=== PATIENT | female | born 1955 | race Caucasian/White ===

== ENCOUNTER 2017-04-25 14:59 | Emergency (ER) | payer BC ==
[2017-04-25] MEDS ORDERED: Diltiazem 25 MG/5 ML SDV IVPUSH ONE ×2 (15:09→15:45)
--- NOTE | 2017-04-25 15:12 | EDM.PDOC ---
ED HPI GENERAL MEDICAL PROBLEM - General Chief Complaint: Chest Pain Stated Complaint: CP Time Seen by Provider: 04/25/17 15:07 Source of Information: Reports: Patient History Limitations: Reports: No Limitations - History of Present Illness INITIAL COMMENTS - FREE TEXT/NARRATIVE: Patient notes that she had left chest tightness starting around 0330 last night. Squeezing sensation, no pain. Increased heart rate. Denies SOB except for when she was at work lifting things. Better with rest. No sweating. No nausea/emesis. ROS otherwise negative. No history of heart problems or similar episodes in past. No new meds/energy drinks/supplements. 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 Chest Pain Score (Numeric/FACES): 1 - Related Data Allergies Allergy/AdvReac Type Severity Reaction Status Date / Time No Known Allergies Allergy Verified 04/25/17 15:03 Home Meds: Home Meds Aspirin [Lo-Dose Aspirin EC] 81 mg PO 199904/25/17 [History] Levothyroxine [Levothyroxine] 125 mcg PO DAILY 04/25/17 [History] Past Medical History Cardiovascular History: Reports: Hypertension Endocrine/Metabolic History: Reports: Hypothyroidism Social & Family History - Family History Cardiac: Reports: CAD, Heart Failure, Hypertension, [place] - Tobacco Use Smoking Status *Q: Never Smoker - Caffeine Use Caffeine Use: Reports: Soda - Alcohol Use Alcohol Use History: No Days Per Week of Alcohol Use: 0 ED ROS GENERAL - Review of Systems Review Of Systems: See Below Constitutional: Reports: No Symptoms HEENT: Reports: Glasses Respiratory: Reports: Shortness of Breath. Denies: Wheezing, Pleuritic Chest Pain, Cough, Sputum, Hemoptysis Cardiovascular: Reports: Chest Pain, Dyspnea on Exertion, Palpitations. Denies : Edema, Lightheadedness, Orthopnea, PND, Syncope Endocrine: Reports: No Symptoms GI/Abdominal: Reports: No Symptoms : Reports: No Symptoms Musculoskeletal: Reports: No Symptoms Skin: Reports: No Symptoms Neurological: Reports: No Symptoms Psychiatric: Reports: No Symptoms Hematologic/Lymphatic: Reports: No Symptoms Immunologic: Reports: No Symptoms ED EXAM, GENERAL - Physical Exam Exam: See Below Exam Limited By: No Limitations General Appearance: Alert, WD/WN, No Apparent Distress Eye Exam: Bilateral Eye: EOMI, Normal Inspection, PERRL Ears: Normal External Exam Nose: Normal Inspection Throat/Mouth: Normal Inspection, Normal Lips, Normal Oropharynx, Normal Voice, No Airway Compromise Head: Atraumatic, Normocephalic Neck: Normal Inspection, Supple, Non-Tender, Full Range of Motion Respiratory/Chest: No Respiratory Distress, Lungs Clear, Normal Breath Sounds, No Accessory Muscle Use, Chest Non-Tender Cardiovascular: Tachycardia, Irregularly Irregular Peripheral Pulses: 2+: Radial (L), Radial (R), Dorsalis Pedis (L), Dorsalis Pedis (R) GI/Abdominal: Normal Bowel Sounds, Soft, Non-Tender, No Distention (Female) Exam: Deferred Rectal (Female) Exam: Deferred Back Exam: Normal Inspection, Full Range of Motion. No: CVA Tenderness (L), CVA Tenderness (R) Extremities: Normal Inspection, Normal Range of Motion, Non-Tender, No Pedal Edema, Normal Capillary Refill Neurological: Alert, Oriented, Normal Cognition, Normal Gait, Normal Reflexes, No Motor/Sensory Deficits Psychiatric: Normal Affect, Normal Mood Skin Exam: Warm, Dry, Intact, Normal Color EKG INTERPRETATION EKG Date: 04/25/17 Time: 15:29 Rhythm: Other (tachycardia, appears consistent with Aflutter) Rate (Beats/Min): 108 [place]: Normal P-Wave: Present QRS: Normal ST-T: Normal QT: Normal Comparison: NA - No Prior EKG Course - Vital Signs Last Recorded V/S: Last Vital Signs Temp 36.8 C 04/25/17 14:59 Pulse 69 04/25/17 18:08 Resp 18 04/25/17 17:54 BP 141/74 H 04/25/17 18:08 Pulse Ox 98 04/25/17 17:54 - Orders/Labs/Meds Orders: Active Orders 24 hr Category Date Time Status EKG Documentation Completion [RC] ASDIRECTED Care 04/25/17 15:08 Active EKG Documentation Completion [RC] ASDIRECTED Care 04/25/17 17:44 Active Chest 1V Frontal [CR] Stat Exams 04/25/17 15:09 Taken PE Chest [Ang Chest] [CT] Stat Exams 04/25/17 16:40 Taken Saline Lock Insert [OM.PC] Stat Oth 04/25/17 15:08 Ordered Labs: Laboratory Tests 04/25/17 04/25/17 04/25/17 Range/Units 15:08 15:08 15:08 WBC 7.7 (4.0-10.2) K/uL RBC 4.90 (3.77-5.09) M/uL Hgb 15.0 (11.7-15.5) g/dL Hct 44.7 (34.0-46.0) % MCV 91.2 (84.0-98.0) fL MCH 30.6 (28.2-33.3) pg MCHC 33.6 (31.7-36.0) g/dL RDW 13.9 (11.2-14.1) % Plt Count 307 (150-350) K/uL Neut % (Auto) 62.0 (45.0-80.0) % Lymph % (Auto) 25.7 (10.0-50.0) % [place] % (Auto) 9.8 (2.0-14.0) % Eos % (Auto) 2.0 (0.0-5.0) % Baso % (Auto) 0.5 (0.0-2.0) % Neut # (Auto) 4.77 (1.40-7.00) K/uL Lymph # (Auto) 1.98 (0.50-3.50) K/uL [place] # (Auto) 0.75 (0.00-1.00) K/uL Eos # (Auto) 0.15 (0.00-0.50) K/uL Baso # (Auto) 0.04 (0.00-0.20) K/uL PT 10.7 (9.8-11.7) SEC INR 1.0 D-Dimer, Quantitative 821 H (0-400) ng/mL Sodium (136-145) mmol/L Potassium (3.5-5.1) mmol/L Chloride (98-107) mmol/L Carbon Dioxide (21.0-32.0) mmol/L BUN (7-18) mg/dL Creatinine (0.51-1.17) mg/dL Est Cr Clr Drug Dosing mL/min Estimated GFR (MDRD) mL/min Glucose (74-106) mg/dL Calcium (8.5-10.1) mg/dL Total Bilirubin (0.2-1.0) mg/dL AST (15-37) U/L ALT (12-78) U/L Alkaline Phosphatase (46-116) IU/L Creatine Kinase (26-308) U/L Creatine Kinase Index (0.0-2.5) % CK-MB (CK-2) (0.00-3.60) ng/mL Troponin I (0.000-0.056) ng/mL NT-Pro-B Natriuret Pep (0-125) pg/mL Total Protein (6.4-8.2) g/dL Albumin (3.4-5.0) g/dL TSH, Ultra Sensitive (0.358-3.740) mIU/mL Specimen Type Urine Color Urine Appearance Urine pH (5.0-9.0) Ur Specific [place] (1.005-1.030) Urine Protein (NEGATIVE) mg/dL Urine Glucose (UA) (NEGATIVE) mg/dL Urine Ketones (NEGATIVE) mg/dL Urine Occult Blood (NEGATIVE) Urine Nitrite (NEGATIVE) Urine Bilirubin (NEGATIVE) Urine Urobilinogen (0.2-1.0) E.U./dL Ur Leukocyte Esterase (NEGATIVE) Urine RBC /HPF Urine WBC /HPF Ur Epithelial Cells /LPF Amorphous Sediment (0/HPF) /HPF Urine Bacteria (NONE TO FEW) /HPF 04/25/17 04/25/17 Range/Units 15:08 18:13 WBC (4.0-10.2) K/uL RBC (3.77-5.09) M/uL Hgb (11.7-15.5) g/dL Hct (34.0-46.0) % MCV (84.0-98.0) fL MCH (28.2-33.3) pg MCHC (31.7-36.0) g/dL RDW (11.2-14.1) % Plt Count (150-350) K/uL Neut % (Auto) (45.0-80.0) % Lymph % (Auto) (10.0-50.0) % [place] % (Auto) (2.0-14.0) % Eos % (Auto) (0.0-5.0) % Baso % (Auto) (0.0-2.0) % Neut # (Auto) (1.40-7.00) K/uL Lymph # (Auto) (0.50-3.50) K/uL [place] # (Auto) (0.00-1.00) K/uL Eos # (Auto) (0.00-0.50) K/uL Baso # (Auto) (0.00-0.20) K/uL PT (9.8-11.7) SEC INR D-Dimer, Quantitative (0-400) ng/mL Sodium 143 (136-145) mmol/L Potassium 3.9 (3.5-5.1) mmol/L Chloride 106 (98-107) mmol/L Carbon Dioxide 27.3 (21.0-32.0) mmol/L BUN 16 (7-18) mg/dL Creatinine 0.91 (0.51-1.17) mg/dL Est Cr Clr Drug Dosing 51.35 mL/min Estimated GFR (MDRD) > 60 mL/min Glucose 113 H (74-106) mg/dL Calcium 9.3 (8.5-10.1) mg/dL Total Bilirubin 0.2 (0.2-1.0) mg/dL AST 15 (15-37) U/L ALT 23 (12-78) U/L Alkaline Phosphatase 55 (46-116) IU/L Creatine Kinase 102 (26-308) U/L Creatine Kinase Index 1.2 (0.0-2.5) % CK-MB (CK-2) 1.20 (0.00-3.60) ng/mL Troponin I 0.006 (0.000-0.056) ng/mL NT-Pro-B Natriuret Pep 2130 H (0-125) pg/mL Total Protein 8.2 (6.4-8.2) g/dL Albumin 3.6 (3.4-5.0) g/dL TSH, Ultra Sensitive 0.007 L (0.358-3.740) mIU/mL Specimen Type Urincc Urine Color Yellow Urine Appearance Clear Urine pH 7.0 (5.0-9.0) Ur Specific [place] 1.015 (1.005-1.030) Urine Protein Negative (NEGATIVE) mg/dL Urine Glucose (UA) Negative (NEGATIVE) mg/dL Urine Ketones Negative (NEGATIVE) mg/dL Urine Occult Blood Trace-intact H (NEGATIVE) Urine Nitrite Negative (NEGATIVE) Urine Bilirubin Negative (NEGATIVE) Urine Urobilinogen 0.2 (0.2-1.0) E.U./dL Ur Leukocyte Esterase Negative (NEGATIVE) Urine RBC 0-5 /HPF Urine WBC 0-5 /HPF Ur Epithelial Cells Few /LPF Amorphous Sediment Moderate H (0/HPF) /HPF Urine Bacteria Few (NONE TO FEW) /HPF Meds: Medications Discontinued Medications Generic Name Dose Route Start Last Admin Trade Name Freq PRN Reason Stop Dose Admin Diltiazem HCl 20 mg 04/25/17 15:09 04/25/17 15:22 Diltiazem IVPUSH 04/25/17 15:10 20 mg ONETIME ONE Administration Diltiazem HCl 25 mg 04/25/17 15:45 04/25/17 15:56 Diltiazem IVPUSH 04/25/17 15:46 25 mg ONETIME ONE Administration Diltiazem HCl 120 mg 04/25/17 17:56 04/25/17 18:08 Cardizem Cd PO 04/25/17 17:57 120 mg ONETIME ONE Administration Diltiazem HCl 100 mg/ Sodium 100 mls @ 5 mls/hr 04/25/17 16:45 Chloride IV TITRATE CAROLYNE Protocol 5 MG/HR Iopamidol 100 ml 04/25/17 16:45 04/25/17 17:01 Isovue-370 (76%) IVPUSH 04/25/17 16:46 100 ml ONETIME ONE Administration Sodium Chloride 10 ml 04/25/17 15:08 04/25/17 15:57 Saline Flush FLUSH 10 ml ASDIRECTED PRN Administration Keep Vein Open - Radiology Interpretation Free Text/Narrative:: CT of chest negative for PE. Small nodules noted left lower lung, uncertain significance per Radiology. It is recommended that this be followed up with later scan to make certain these have resolved. No acute changes noted on earlier chest xray. - Re-Assessments/Exams Free Text/Narrative Re-Assessment/Exam: Patient given several doses of IV Cardizem. No appreciable rate change with first dose. Second dose ordered. Labs showed elevated DDimer as well as ProBNP. TSH very low. Discussed DDimer with patient. She was willing to undergo CT to rule out PE. Second dose of Cardizem improved rate, however change was short lived. Cardizem drip considered while patient underwent CT. When dye was injected, patient suddenly felt rate change and complaint of chest discomfort/palpitations/SOB resolved. Monitor showed NSR. New EKG performed at 1721. Normal sinus rhythm with rate of 63 noted. Normal EKG. She was observed for some time and remained asymptomatic and comfortable. Vital signs stable. Single oral dose of Cardizem CD given prior to discharge. CT nodules discussed with patient. She is to follow up tomorrow with Vera at clinic for recheck as well as to discuss lowering her thyroid dose. Nodule follow up plan is also to be formulated. Cannot rule out possible contribution of thyroid medication to today's presentation. She is to hold her morning thyroid dose tomorrow. Departure - Departure Time of Disposition: 18:07 Disposition: Home, Self-Care 01 Condition: Good Clinical Impression: Atrial flutter with rapid ventricular response Instructions: Paroxysmal Supraventricular Tachycardia, [id number], Atrial Flutter Referrals: PCP,Unknown [Primary Care Provider] - Forms: ED Department Discharge Additional Instructions: Follow up in the ER if symptoms redevelop. Call your clinic tomorrow morning and arrange a follow up with Vera. Do not take your thyroid medication in the morning. Discuss possible thyroid dose changes as well as if cardiac stress testing needs to be scheduled. Arrange for further follow up as needed. - My Orders Last 24 Hours: My Active Orders 04/25/17 15:08 EKG Documentation Completion [RC] ASDIRECTED Saline Lock Insert [OM.PC] Stat 04/25/17 15:09 Chest 1V Frontal [CR] Stat 04/25/17 16:40 PE Chest [Ang Chest] [CT] Stat 04/25/17 17:44 EKG Documentation Completion [RC] ASDIRECTED - Assessment/Plan Last 24 Hours: My Active Orders 04/25/17 15:08 EKG Documentation Completion [RC] ASDIRECTED Saline Lock Insert [OM.PC] Stat 04/25/17 15:09 Chest 1V Frontal [CR] Stat 04/25/17 16:40 PE Chest [Ang Chest] [CT] Stat 04/25/17 17:44 EKG Documentation Completion [RC] ASDIRECTED
[2017-04-25] MEDS: Sodium Chloride 0.9% 10 ML Syringe FLUSH PRN ×2 (15:23→15:57)
[2017-04-25 15:42] LABS: CHLORIDE,CL 106 mmol/L (98-107); SODIUM,NA 143 mmol/L (136-145)
[2017-04-25] MEDS ORDERED: Iopamidol 755 Mg/ML 100 ML Bottle IVPUSH ONE (16:45)
[2017-04-25] MEDS ORDERED: Diltiazem 100 MG in Sodium Chloride 0.9% 100 ML IV SCH (16:45)
[2017-04-25] MEDS ORDERED: Diltiazem 120 MG Cap.CD PO ONE (17:56)
== END 2017-04-25 18:30 | disposition home or self-care (01) ==
LOC: LL.ED 14:59
DX: I48.92 Unspecified atrial flutter (principal); I10 Essential (primary) hypertension; E03.9 Hypothyroidism, unspecified; Z79.82 Long term (current) use of aspirin; Z79.899 Other long term (current) drug therapy
CPT/HCPCS: 36415; 71010; 71275; 80053; 81001; 82550; 82553; 83880; 84443; 84484; 85025; 85379; 85610; 93005; 96374; 96376; 99285; A9270; J3490; J7050; Q9967

== ENCOUNTER 2020-01-08 10:23 | Day surgery (SDC) | payer BC ==
[~2020-01-08 10:23] MED LIST: Lactated Ringers 1,000 ML IV SCH; Midazolam 1 MG/ML 2 ML SDV ONE; Propofol 200 MG/20 ML SDV ONE; Sodium Chloride 0.9% 10 ML Syringe FLUSH PRN
--- NOTE | 2020-01-08 12:10 | PCM.PN ---
- General Info Date of Service: 01/08/20 - Review of Systems Systems Review Comment:: 65-year-old female referred for her first colonoscopy. This patient was recently noted to have positive Cologuard test. She denies any recent change in bowel habits. She denies any family history of colon cancer. She is medically stable to proceed today. Her recent history and physical is reviewed and no significant changes are noted. I have discussed the proposed colonoscopy with the patient. Risks such as but not limited to bleeding and GI injury reviewed. She agrees to proceed. - Patient Data Vitals - Most Recent: Last Vital Signs Temp 98.9 F 01/08/20 11:13 Pulse 56 L 01/08/20 11:13 Resp 20 01/08/20 11:13 BP 129/71 01/08/20 11:13 Pulse Ox 97 01/08/20 11:13 Weight - Most Recent: 92.079 kg Med Orders - Current: Current Medications Lactated Ringer's (Ringers, Lactated) 1,000 mls @ 125 mls/hr IV ASDIRECTED CAROLYNE Last Admin: 01/08/20 11:12 Dose: 125 mls/hr Documented by: Sodium Chloride (Saline Flush) 10 ml FLUSH ASDIRECTED PRN PRN Reason: Keep Vein Open Discontinued Medications Midazolam HCl (Versed 1 Mg/Ml) Confirm Administered Dose 2 mg .ROUTE .STK-MED ONE Stop: 01/08/20 08:29 Propofol (Diprivan 20 Ml) Confirm Administered Dose 400 mg .ROUTE .STK-MED ONE Stop: 01/08/20 08:29 Sepsis Event Note - Focused Exam Vital Signs: Vital Signs Temp Pulse Resp BP Pulse Ox 01/08/20 11:13 98.9 F 56 L 20 129/71 97 Date Exam was Performed: 01/08/20 Time Exam was Performed: 12:09 - Problem List Review Problem List Initiated/Reviewed/Updated: Yes - Assessment Assessment:: Positive Cologuard - Plan Plan:: Colonoscopy
[2020-01-08] MEDS ORDERED: Midazolam 1 MG/ML 2 ML SDV ONE (12:15)
[2020-01-08] MEDS ORDERED: Propofol 200 MG/20 ML SDV ONE (12:15)
--- NOTE | 2020-01-08 12:59 | PCM.OPNOTE ---
- General Post-Op/Procedure Note Date of Surgery/Procedure: 01/08/20 Operative Procedure(s): Colonoscopy with polypectomy Findings: 1.5 cm pedunculated polyp in the sigmoid colon Mild to moderate sigmoid diverticulosis Pre Op Diagnosis: Positive Cologuard test Post-Op Diagnosis: Colon polyp. Sigmoid diverticulosis Anesthesia Technique: MAC Primary Surgeon: Vince Luna Pathology: Sigmoid colon polyp EBL in mLs: 0 Complications: None Condition: Good
--- NOTE | 2020-01-08 18:45 | OR ---
Date of Procedure: 01/08/2020 PREOPERATIVE DIAGNOSIS: Positive Cologuard test. POSTOPERATIVE DIAGNOSIS: Sigmoid colon polyp and sigmoid diverticulosis. OPERATIONS PERFORMED: Colonoscopy with polypectomy. INDICATIONS FOR SURGERY: This 65-year-old female is here for her initial colonoscopy. She was recently noted to be Cologuard positive. FINDINGS: In the sigmoid colon 20 cm from the anal verge, there is a relatively large pedunculated polyp of approximately 1.5 cm in size. No other polyps are seen during the exam. The patient also has a [id number] degree of uncomplicated sigmoid diverticulosis. DESCRIPTION OF PROCEDURE: The patient was taken to the operating room. She was given intravenous sedation, and with her in the left lateral decubitus position, digital rectal exam was performed showing no rectal masses. The Olympus colonoscope was inserted into the rectum. Retroflexed examination of the rectal canal was performed. The scope was advanced to the sigmoid region where the above-described polyp was identified. This was removed with a cautery snare and retrieved. The polyp then was retrieved by holding it on the end of the scope with suction and withdrawing it from the rectum. The scope was then reinserted and carefully advanced under direct visualization through the entire length of the colon until the cecum was reached. Cecal acquisition was confirmed by noting the normal internal cecal anatomy including the appendiceal orifice and ileocecal valve. The light was also noted to transilluminate the abdominal wall in the right lower quadrant. After examining the cecum, the scope was slowly withdrawn sequentially re-examining the colonic segments until the entire colon and rectum had been fully examined. The scope was removed and the patient was taken from the operating room in satisfactory condition. ESTIMATED BLOOD LOSS: 0. COMPLICATIONS: None. PROGNOSIS: Good. ABDIRAHMAN Luna MD /[id number]
== END 2020-01-08 13:56 | disposition home or self-care (01) ==
LOC: LL.SDS 10:23
PROVIDERS: ATTEND Surgery
DX: K57.30 Diverticulosis of large intestine without perforation or abscess without bleeding (principal); I10 Essential (primary) hypertension; E78.5 Hyperlipidemia, unspecified; E03.9 Hypothyroidism, unspecified; Z79.890 Hormone replacement therapy; Z79.899 Other long term (current) drug therapy; Z79.82 Long term (current) use of aspirin
CPT/HCPCS: J2250; J2704; J7120

== ENCOUNTER 2020-09-14 03:05 | Observation (INO) | payer BC ==
[2020-09-14] MEDS ORDERED: Enoxaparin 100 MG/1 ML Syringe ONE (03:40)
[2020-09-14] MEDS ORDERED: Ticagrelor 90 MG Tab PO ONE (03:40)
[2020-09-14] MEDS ORDERED: Metoprolol Tartrate 25 MG Tab ONE (03:40)
[2020-09-14] MEDS ORDERED: Acetaminophen 325 MG Tab PO PRN (04:30)
[2020-09-14] MEDS ORDERED: Enoxaparin 100 MG/1 ML Syringe SUBCUT SCH (04:45)
[2020-09-14 08:17] LABS: PTT,PARTIAL THROMBOPLSTIN TIME 26.4 SEC (24.5-32.8)
[2020-09-14 08:19] LABS: CHLORIDE,CL 105 mmol/L (98-107); SODIUM,NA 141 mmol/L (136-145)
[2020-09-14] MEDS ORDERED: Famotidine 20 MG/2 ML SDV IVPUSH ONE (08:46)
--- NOTE | 2020-09-14 09:32 | EDM.PDOC ---
ED HPI GENERAL MEDICAL PROBLEM - General Chief Complaint: Cardiovascular Problem Stated Complaint: Heart flutter, chest pain Time Seen by Provider: 09/14/20 03:35 Source of Information: Reports: Patient, Old Records ([facility] chart/EMR) History Limitations: Reports: No Limitations - History of Present Illness INITIAL COMMENTS - FREE TEXT/NARRATIVE: The patient drove herself to the emergency room via private automobile secondary to a sudden onset episode of heart racing, dyspnea, dizziness, and mild nausea with the symptoms waking her up from sleep at about 2:15 AM this morning. The patient does have a history of previous recurrent atrial fibrillation initially in April 2017 with no anticoagulation therapy or cardiac work-up to this point. She also complained of left lateral lower 6/10 chest pressure, which she describes as a "catch," with no radiation of this chest discomfort. The patient denies any orthostasis, orthopnea, diaphoresis, paresthesias, recent decreased exercise tolerance, or any other anginal-type symptoms, although her overall exercise tolerance and activity is relatively low as a baseline. No recent history of abdominal pain, emesis, diarrhea, melena, gross hematochezia, or any food intolerance, including fatty foods, etc., although she has been having some frequent heartburn type symptoms during the last several weeks with no medications to this point. She denies any gross hematuria, colic, or other UTI symptoms. The patient also denies any recent fever, cough, wheezing, dyspnea, etc.. She has not taken any medications for her symptoms to this point, including her morning medications. She also denies any medication noncompliance. Onset: Today, Sudden Onset Date: 09/14/20 Onset Time: 02:15 Duration: Constant Location: Reports: Chest, Abdomen (Possible epigastric component). Denies: Head, Face, Neck, Back, Pelvis, Upper Extremity, Left, Upper Extremity, Right, Radiates to Quality: Reports: Pressure, Same as Previous Episode Severity: Moderate Improves with: Reports: None Worsens with: Reports: None Context: Reports: Other (As above). Denies: Sick Contact, Trauma Associated Symptoms: Reports: Chest Pain, Nausea/Vomiting (No emesis), Shortness of Breath. Denies: Confusion, Cough, Diaphoresis, Fever/Chills, Headaches, Loss of Appetite, Malaise, Seizure, Syncope, Weakness Treatments HAND SCRAPER: Reports: Other (see below) (None) Left Lower Chest Pain Score (Numeric/FACES): 6 - Related Data Allergies Allergy/AdvReac Type Severity Reaction Status Date / Time No Known Allergies Allergy Verified 09/14/20 09:21 Home Meds: Home Meds Aspirin [Halfprin] 1 tab PO DAILY 01/08/20 [History] Levothyroxine Sodium [Synthroid] 137 mcg PO DAILY 09/14/20 [History] Metoprolol Tartrate 25 mg PO DAILY 09/14/20 [History] Past Medical History HEENT History: Reports: Impaired Vision. Denies: Allergic Rhinitis, Cataract, Glaucoma, Hard of Hearing, Macular Degeneration, Otitis Media, Retinal Detachment Other HEENT History: The patient wears glasses. Cardiovascular History: Reports: Afib, Heart Failure, High Cholesterol, Hypertension, Other (See Below). Denies: Aneurysm, Arrhythmia, Blood Clots/VTE/DVT, CAD, Heart Murmur, MO, PVD, Syncope Other Cardiovascular History: Mild hyperlipidemia with no current medical therapy. Recurrent atrial fibrillation/flutter since 04/25/2017 with additional episode on 04/25/2018 with evaluations in this facility on those occasions. History of D-dimer elevation in April 2017 with negative CTA of the chest as below. History of borderline intermittent CHF likely secondary to atrial fibrillation with rapid ventricular response. Respiratory History: Reports: COPD, Pulmonary Fibrosis, Other (See Below). Denies: Asthma, Bronchitis, Recurrent, Intubation, Difficult, Intubation, Previous, PE, Pneumonia, Recurrent, Pneumothorax, Sleep Apnea, TB Other Respiratory History: Borderline COPD and pulmonary fibrosis per chest x- ray with no current medical therapy. Gastrointestinal History: Reports: Colon Polyp, Diverticulosis, GERD, Other (See Below). Denies: Bowel Obstruction, Celiac Disease, Cholelithiasis, Chronic Constipation, Chronic Diarrhea, Fecal Incontinence, Gastritis, GI Bleed, Helicobacter Pylori, Hiatal Hernia, Inflammatory Bowel Disease, Irritable Bowel Syndrome, Jaundice, Pancreatitis, PUD Other Gastrointestinal History: Tubular adenoma removed from the sigmoid colon on 01/08/2020 with mild sigmoid diverticulosis noted at that time. Dysphagia secondary to C-spine fixation. Genitourinary History: Reports: None. Denies: Acute Renal Failure, Chronic Renal Insuffiency, Pyelonephritis, Renal Calculus, Retention, Urinary, STD, Urinary Incontinence, UTI, Recurrent CONCRETE ANALYST History: Reports: None (General). Denies: Dysfunctional Uterine Bleeding, Endometriosis, Fibroids, , Spontaneous : 0 Para: 0 LMP (Approximate): Other (See Below) Other CONCRETE ANALYST History: Menopause at about age 56. Musculoskeletal History: Reports: Arthritis, Back Pain, Chronic, Fracture, Neck Pain, Chronic, Osteoarthritis, Other (See Below). Denies: Amputation, Gout, Osteoporosis, RA, SLE Other Musculoskeletal History: History of right-sided C6-C7 disc herniation versus questionable possible cervical fracture secondary to a fall in 2006 with subsequent spinal fusion as above. 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 Minimal scoliosis. Neurological History: Reports: None. Denies: Cerebral Aneurysms, Concussion, CVA, Headaches, Chronic, Head Trauma, Migraines, MS, Neuropathy, Diabetic, Neuropathy, Peripheral, Parkinson's, Seizure, TIA Psychiatric History: Reports: None. Denies: Abuse, Victim of, ADD, ADHD, Addiction, Alzheimers Disease, Anxiety, Dementia, Depression, Psych Hospitalization(s), PTSD, Suicide Attempt, Suicidal Ideation Endocrine/Metabolic History: Reports: Hypothyroidism, Multinodular Thyroid, Obesity/BMI 30+, Other (See Below). 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 Hematologic History: Reports: Blood Transfusion(s), Other (See Below). Denies: Anemia Other Hematologic History: Blood transfusions for orthopedic surgeries. Immunologic History: Reports: None. Denies: AIDS, HIV, SLE Oncologic (Cancer) History: Reports: None. Denies: Basal Cell Carcinoma, Breast, Cervix, Colon, Hodgkin's Lymphoma, Leukemia, Lymphoma, Malignant Melanoma, Non-Hodgkin's Lymphoma, Ovarian, Squamous Cell Carcinoma, Uterine Dermatologic History: Reports: None. Denies: Eczema, Psoriasis - Infectious Disease History Infectious Disease History: Reports: Chicken Pox, Measles, Mumps. Denies: C- Difficile, Meningitis, Mononucleosis, MRSA, Novel Coronavirus, Pertussis (Whooping Cough), Rheumatic Fever, Rubella, Scarlet Fever, Shingles, TB, VRE - Past Surgical History Head Surgeries/Procedures: Reports: None HEENT Surgical History: Reports: Oral Surgery, Other (See Below). Denies: Adenoidectomy, Cataract Surgery, Eye Surgery, Laser Surgery, LASIK, Myringotomy w Tube(s), Naso-Sinus Surgery, Tonsillectomy Other HEENT Surgeries/Procedures: [place] teeth extraction x4. Cardiovascular Surgical History: Reports: None. Denies: Varicose Respiratory Surgical History: Reports: None. Denies: Thoracentesis GI Surgical History: Reports: Colonoscopy, Polypectomy, Other (See Below). Denies: Appendectomy, Cholecystectomy, EGD, Hernia, Abdominal, Hernia, Inguinal, Hernia Repair/Other Other GI Surgeries/Procedures: Colonoscopy on 01/08/2020 with excision of tubular adenoma from the sigmoid region at that time as above. Female Surgical History: Reports: None. Denies: Breast Biopsy, Section, D&C, Salpingo-Oophorectomy, Tubal Ligation Endocrine Surgical History: Reports: Thyroid Biopsy, Thyroidectomy, Other (See Below) Other Endocrine Surgeries/Procedures: Left sided partial thyroidectomy secondary to multinodular goiter initially in about 2012 with subsequent repeat additional partial thyroidectomy in about 2013. Neurological Surgical History: Reports: C-Spine, Discectomy, Laminectomy, Spinal Fusion, Other (See Below). Denies: Lumbar Spine, Sacral Spine, Scoliosis, Thor acic Spine, Vertebroplasty Other Neurological Surgeries/Procedures: C6-7 laminectomy secondary to right- sided herniation with additional C4-C7 spinal fixation in 2006. Musculoskeletal Surgical History: Reports: Hip Replacement, Joint Replacement, Other (See Below). 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 Oncologic Surgical History: Reports: None. Denies: Biopsy of Breast Dermatological Surgical History: Reports: None. Denies: Plastic Surgical Reconstruction/Repair, Skin Biopsy - Past Imaging History Past Imaging History: Reports: Cardiac Echo (Normal echocardiogram on 06/01/2020 with ejection fraction of 55-60% with previous echocardiograms on 05/20/2018 and 05/07/2017.), CAT Scan (Negative CTA of the chest on 04/25/[address] of the neck on 01/15/2008.), Mammogram (Last on 06/21/2020), MRI (MRI of the C- spine on 06/19/2006.), Stress Testing (Negative Cardiolite stress test on 05/03/2017 with ejection fraction of 74%.), Ultrasound (Thyroid ultrasound on 01/06/2008, 05/23/2018, and 04/27/2017.), Venous Doppler (Negative venous Doppler studies of the right leg on 08/18/2013.) Social & Family History - Family History HEENT: Reports: None. Denies: Glaucoma, Macular Degeneration, Retinal De tachment Cardiac: Reports: Afib, CAD, Heart Failure, High Cholesterol, Hypertension, MO, Pacemaker, Other (See Below). Denies: Aneurysm, Arrhythmia, Blood Clots/VTE/DVT, PVD/COD, Syncope Other Cardiac Family History: Mother with MO in her 50s. Father with fatal MO in his 70s prior to planned pacemaker placement for unknown reason. Maternal grandfather and 4 maternal uncles with fatal MIs in their 60s to 70s. First cousin with atrial fibrillation. Mother with hypertension and hyperlipidemia. Respiratory: Reports: Asthma, Other (See Below). Denies: COPD, PE, Pneumothorax, Sleep Apnea Other Respiratory Family Hisory: Paternal grandmother with asthma. A sister with sleep apnea. GI: Reports: Cholelithiasis, Other (See Below). Denies: Celiac Disease, Colon Polyps, GERD, GI bleed, Inflammatory Bowel Disease, Irritable Bowel Syndrome, PUD Other GI Family History: Mother and sister with cholelithiasis. : Reports: None. Denies: Renal Calculus, Renal Disease/Insufficiency OBGYN: Reports: Dysfunctional uterine bleeding, Fibroids, Other (See Below). Denies: Endometriosis, Recurrent Spontaneous Other OBGYN Family History: Sister with fibroids and secondary dysfunctional uterine bleeding. Musculoskeletal: Reports: Arthritis, RA, Other (See Below). Denies: Gout, Osteoarthritis, Osteoporosis Other Musculoskeletal Family History: Father, sister, and paternal grandfather with rheumatoid arthritis. Neurological: Reports: None. Denies: Alzheimers Disease, Cerebral Aneurysms, CVA, Dementia, Migraines, MS, Parkinson's, Seizure, TIA Psychiatric: Reports: Anxiety, Depression, Other (See Below). Denies: Abuse, Victim of, ADD, Psych Hospitalization(s), Psychosis, PTSD, Suicide Attempt Other Psychiatric Family History: Sister with anxiety depression disorder. Endocrine/Metabolic: Reports: Hypothyroidism, Other (See Below). Denies: Diabetes, Gestational, Diabetes, Type I, Diabetes, type II, Diabetes Mellitus, Type 3c, IDDM Other Endocrine/Metabolic Family History: Father with hypothyroidism. Hematologic: Reports: None. Denies: Anemia, SLE Immunologic: Reports: None. Denies: AIDS, HIV, SLE Dermatologic: Reports: None. Denies: Eczema, Psoriasis Oncologic: Reports: Skin, Other (See Below) Other Oncologic Family History: Maternal aunt with unknown type of cancer. Mother with unknown type of skin cancer. - Tobacco Use Tobacco Use Status *Q: Never Tobacco User Tobacco Use Within Last Twelve Months: No Used Tobacco, but Quit: No Smoking Cessation Information Provided To Patient: No Second Hand Smoke Exposure: No Second Hand Smoke Education Provided: No - Caffeine Use Caffeine Use: Reports: Soda (2 sodas per week). Denies: Coffee, Energy Drinks, Tea - Alcohol Use Alcohol Use History: No Days Per Week of Alcohol Use: 0 Number of Drinks Per Day: 0 Number of Drinks Per Day Comment: No previous DWIs, problems with alcohol abuse, etc. Total Drinks Per Week: 0 Alcohol Use in Last Twelve Months: No - Recreational Drug Use Recreational Drug Use: No Drug Use in Last 12 Months: No Recreational Drug Type: Denies: Amphetamines (Speed), Cocaine, Heroin, Inhalants (Glues, Solvents, Aerosols), LSD (Acid), Marijuana/Hashish, Methamphetamine, Morphine, Oxycodone - Living Situation & Occupation Living situation: Reports: (2010, no children), Alone Occupation: Employed ([employer]) ED ROS GENERAL - Review of Systems Review Of Systems: Comprehensive ROS is negative, except as noted in HPI. ED EXAM, GENERAL - Physical Exam Exam: See Below Exam Limited By: No Limitations General Appearance: Alert, WD/WN, No Apparent Distress Eye Exam: Bilateral Eye: EOMI, Normal Inspection (The patient is wearing glasses. No vertigo or nystagmus.), PERRL Ears: Normal External Exam, Normal Canal, Hearing Grossly Normal, Normal TMs Nose: Normal Inspection, Normal Mucosa, No Blood Throat/Mouth: Normal Inspection, Normal Lips, Normal Teeth, Normal Gums, Normal Oropharynx, Normal Voice, No Airway Compromise, Dysphagia (As below), Other (Stable chronic problems of swallowing pills). No: Inflammation, Perioral Cyanosis Head: Atraumatic, Normocephalic. No: Facial Swelling, Facial Tenderness, Sinus Tenderness Neck: Normal Inspection, Supple, Non-Tender, Full Range of Motion. No: Carotid Bruit, Lymphadenopathy (L), Lymphadenopathy (R), Thyromegaly Respiratory/Chest: No Respiratory Distress, No Accessory Muscle Use, Chest Non- Tender, Rales (Mild bilateral basilar). No: Rhonchi, Wheezing, Pleural Rub, Retractions Cardiovascular: Normal Peripheral Pulses, No Edema (Dependent edema as below), No JVD, No Murmur, Tachycardia, Irregularly Irregular. No: Gallop/S3, Gallop/S4, Friction Rub Peripheral Pulses: 2+: Radial (L), Radial (R), Dorsalis Pedis (L), Dorsalis Pedis (R) GI/Abdominal: Normal Bowel Sounds, Soft, Non-Tender, No Organomegaly, No Distention, No Abnormal Bruit, No Mass, Other (Obese). No: Guarding (Female) Exam: Deferred Rectal (Female) Exam: Deferred Back Exam: Full Range of Motion, CVA Tenderness (L), CVA Tenderness (R), Decreased Range of Motion (Cervical region secondary to previous C-spine fixation). No: Muscle Spasm, Paraspinal Tenderness, Vertebral Tenderness Extremities: Normal Range of Motion, Non-Tender, Normal Capillary Refill, Pedal Edema (Trace bilateral pedal/pretibial edema). No: Prudence's Sign Neurological: Alert, Oriented, CN II-XII Intact, Normal Cognition, Normal Gait, Normal Reflexes (Negative Babinski's), No Motor/Sensory Deficits Psychiatric: Normal Affect, Normal Mood Skin Exam: No: Diaphoretic, Wound/Incision Lymphatic: No Adenopathy (Wants no good) #1 Interpretation EKG Date: 09/14/20 Time: 03:24 Rhythm: NSR Rate (Beats/Min): 71 [place]: Normal (Left cardiac axid=s) P-Wave: Present QRS: Normal (0.08 seconds) ST-T: Normal QT: Normal [place]/PQ Interval: 0.19 seconds with pulmonary hypertension by EKG, which is changed from previous mild poor R wave progression in the anterior leads. Also no previous mild sinus bradycardia. Comparison: Change From Previous EKG (As above since 05/20/2018.) EKG Interpretation Comments: 1. No acute ischemic changes with resolution of atrial fibrillation Course - Vital Signs Last Recorded V/S: Last Vital Signs Temp 36.6 C 09/14/20 11:20 Pulse 54 L 09/14/20 11:20 Resp 20 09/14/20 11:20 BP 146/61 H 09/14/20 11:20 Pulse Ox 98 09/14/20 11:20 - Orders/Labs/Meds Labs: Laboratory Tests 09/14/20 09/14/20 09/14/20 Range/Units 03:30 03:30 03:30 WBC 5.9 (4.0-10.2) K/uL RBC 4.93 (3.77-5.09) M/uL Hgb 15.1 (11.7-15.5) g/dL Hct 45.0 (34.0-46.0) % MCV 91.3 (84.0-98.0) fL MCH 30.6 (28.2-33.3) pg MCHC 33.6 (31.7-36.0) g/dL RDW 13.6 (11.2-14.1) % Plt Count 253 (150-350) K/uL Neut % (Auto) 58.7 (45.0-80.0) % Lymph % (Auto) 25.9 (10.0-50.0) % [place] % (Auto) 11.7 (2.0-14.0) % Eos % (Auto) 3.4 (0.0-5.0) % Baso % (Auto) 0.3 (0.0-2.0) % Neut # (Auto) 3.46 (1.40-7.00) K/uL Lymph # (Auto) 1.53 (0.50-3.50) K/uL [place] # (Auto) 0.69 (0.00-1.00) K/uL Eos # (Auto) 0.20 (0.00-0.50) K/uL Baso # (Auto) 0.02 (0.00-0.20) K/uL PT 9.6 (9.5-12.0) SEC INR 1.0 APTT 26.4 (24.5-32.8) SEC D-Dimer, Quantitative 530 H (0-400) ng/mL Sodium (136-145) mmol/L Potassium (3.5-5.1) mmol/L Chloride (98-107) mmol/L Carbon Dioxide (21.0-32.0) mmol/L BUN (7-18) mg/dL Creatinine (0.51-1.17) mg/dL Est Cr Clr Drug Dosing Estimated GFR (MDRD) mL/min Glucose (70-99) mg/dL Lactic Acid (0.4-2.0) mmol/L Calcium (8.5-10.1) mg/dL Magnesium (1.8-2.4) mg/dL Total Bilirubin (0.2-1.0) mg/dL AST (15-37) U/L ALT (12-78) U/L Alkaline Phosphatase (46-116) IU/L Creatine Kinase (26-308) U/L Creatine Kinase Index (0.0-2.5) % CK-MB (CK-2) (0.00-3.60) ng/mL Troponin I (0.000-0.056) ng/mL NT-Pro-B Natriuret Pep (0-125) pg/mL Total Protein (6.4-8.2) g/dL Albumin (3.4-5.0) g/dL 09/14/20 09/14/20 Range/Units 03:30 03:30 WBC (4.0-10.2) K/uL RBC (3.77-5.09) M/uL Hgb (11.7-15.5) g/dL Hct (34.0-46.0) % MCV (84.0-98.0) fL MCH (28.2-33.3) pg MCHC (31.7-36.0) g/dL RDW (11.2-14.1) % Plt Count (150-350) K/uL Neut % (Auto) (45.0-80.0) % Lymph % (Auto) (10.0-50.0) % [place] % (Auto) (2.0-14.0) % Eos % (Auto) (0.0-5.0) % Baso % (Auto) (0.0-2.0) % Neut # (Auto) (1.40-7.00) K/uL Lymph # (Auto) (0.50-3.50) K/uL [place] # (Auto) (0.00-1.00) K/uL Eos # (Auto) (0.00-0.50) K/uL Baso # (Auto) (0.00-0.20) K/uL PT (9.5-12.0) SEC INR APTT (24.5-32.8) SEC D-Dimer, Quantitative (0-400) ng/mL Sodium 141 (136-145) mmol/L Potassium 3.9 (3.5-5.1) mmol/L Chloride 105 (98-107) mmol/L Carbon Dioxide 26.6 (21.0-32.0) mmol/L BUN 17 (7-18) mg/dL Creatinine 0.98 (0.51-1.17) mg/dL Est Cr Clr Drug Dosing TNP Estimated GFR (MDRD) 57 mL/min Glucose 130 H (70-99) mg/dL Lactic Acid 1.5 (0.4-2.0) mmol/L Calcium 8.9 (8.5-10.1) mg/dL Magnesium 1.9 (1.8-2.4) mg/dL Total Bilirubin 0.3 (0.2-1.0) mg/dL AST 18 (15-37) U/L ALT 30 (12-78) U/L Alkaline Phosphatase 49 (46-116) IU/L Creatine Kinase 79 (26-308) U/L Creatine Kinase Index 1.0 (0.0-2.5) % CK-MB (CK-2) 0.80 (0.00-3.60) ng/mL Troponin I 0.000 (0.000-0.056) ng/mL NT-Pro-B Natriuret Pep 140 H (0-125) pg/mL Total Protein 7.8 (6.4-8.2) g/dL Albumin 3.7 (3.4-5.0) g/dL Meds: See paper forms - Radiology Interpretation Free Text/Narrative:: dip painter showed initial atrial fibrillation/flutter with initial heart rate in the 150s with subsequent spontaneous resolution and heart rate in the 70s. Normal sinus rhythm with no other ectopy noted thereafter. Chest x-ray, portable, showed borderline cardiomegaly with possible mild pulmonary obstructive disease and borderline pulmonary fibrosis. Mild CHF with somewhat prominent aortic arch with somewhat poor inspiratory film but no pneumothorax, significant pulmonary infiltrates, etc. Departure - Departure Time of Disposition: 04:30 Disposition: Refer to Observation Condition: Good Clinical Impression: Atrial fibrillation with rapid ventricular response, Hyperglycemia, Peptic reflux disease, D-dimer, elevated, Chest pain Hypothyroidism Qualifiers: Hypothyroidism type: postoperative Qualified Code(s): E89.0 - Postprocedural hypothyroidism Hypertension Qualifiers: Hypertension type: essential hypertension Qualified Code(s): I10 - Essential (primary) hypertension Hyperlipidemia Qualifiers: Hyperlipidemia type: unspecified Qualified Code(s): E78.5 - Hyperlipidemia, unspecified Osteoarthritis Qualifiers: Osteoarthritis location: multiple joints Osteoarthritis type: primary Qualified Code(s): M89.49 - Other hypertrophic osteoarthropathy, multiple sites CHF (congestive heart failure) Qualifiers: Heart failure type: systolic Heart failure chronicity: acute Qualified Code(s): I50.21 - Acute systolic (congestive) heart failure Chest pain Qualifiers: Chest pain type: precordial pain Qualified Code(s): R07.2 - Precordial pain - Problem List & Annotations (1) Chest pain SNOMED Code(s): 34133048 Code(s): R07.9 - CHEST PAIN, UNSPECIFIED Status: Acute Priority: High Current Visit: Yes Onset Date: 09/14/20 Annotation/Comment:: Chest pain protocol initiated immediately upon patient's arrival to the emergency room. Initiate standard rule out MO orders with patient to be placed in observation status. Cardiology consultation depending on her clinical course. Patient started on subcu Lovenox at VTE/cardiac dose secondary to her recurrent atrial fibrillation as above/below. Note that the chest pain did resolve after spontaneous resolution of her atrial fibrillation as below. Qualifiers: Chest pain type: precordial pain Qualified Code(s): R07.2 - Precordial pain (2) Atrial fibrillation with rapid ventricular response SNOMED Code(s): 778472036246158 Code(s): I48.91 - UNSPECIFIED ATRIAL FIBRILLATION Status: Acute Current Visit: Yes Annotation/Comment:: Note spontaneous resolution without medical therapy of her atrial fibrillation prior to my arrival in the emergency room. This is her third episode of recurrent atrial fibrillation with no previous anticoagulation therapy. The patient was started on subcutaneous Lovenox at the VTE dose with patient was restarted on Eliquis at time of discharge. Note that the patient has had a distant negative Cardiolite stress test as above with consideration of repeat study once her medical therapy and heart rhythm have stabilized. She should be discharged with 50% activity restrictions and strict fall precautions until her cardiac status has been clarified with work excuse to be provided at time of discharge. (3) CHF (congestive heart failure) SNOMED Code(s): 91744005 Code(s): I50.9 - HEART FAILURE, UNSPECIFIED Status: Acute Priority: High Current Visit: Yes Annotation/Comment:: Note history of mild recurrent CHF secondary to her atrial fibrillation and secondary tachycardia with normal multiple echocardiograms in the past. Medical records were not available after initial evaluation of this patient secondary to [facility] downtime with echocardiogram repeated on 09/14 in spite of recent echocardiogram on 06/01/2020. Consider GIGI inhibitor therapy depending on her clinical course, however hold for now secondary to arrhythmia being the primary etiology of her intermittent heart failure. Note multiple medication changes as above. Qualifiers: Heart failure type: systolic Heart failure chronicity: acute Qualified Code(s): I50.21 - Acute systolic (congestive) heart failure (4) D-dimer, elevated SNOMED Code(s): 109341966 Code(s): R79.89 - OTHER SPECIFIED ABNORMAL FINDINGS OF BLOOD CHEMISTRY Status: Chronic Priority: Medium Current Visit: Yes Annotation/Comment:: Previous history of di dimer elevation with negative CTA of the chest as below. Venous Doppler studies of the lower extremities are to be performed on 09/14. No clinical evidence of DVT or PE. Secondary to only mildly elevated D-dimer of less than [address] of the chest will not be ordered at this time. (5) Hyperglycemia SNOMED Code(s): 71891105 Code(s): R73.9 - HYPERGLYCEMIA, UNSPECIFIED Status: Acute Priority: [facility] Current Visit: Yes Onset Date: 09/14/20 Annotation/Comment:: Glycosylated hemoglobin to be ordered with next set of cardiac enzymes. (6) Hyperlipidemia SNOMED Code(s): 55468954 Code(s): E78.5 - HYPERLIPIDEMIA, UNSPECIFIED Status: Chronic Priority: Medium Current Visit: Yes Annotation/Comment:: Note obesity with weight loss in moderation advisable. Fasting lipid profile to be ordered with next set of cardiac enzymes. Qualifiers: Hyperlipidemia type: unspecified Qualified Code(s): E78.5 - Hyperlipidemia, unspecified (7) Hypertension SNOMED Code(s): 60081085 Code(s): I10 - ESSENTIAL (PRIMARY) HYPERTENSION Status: Chronic Priority: Medium Current Visit: Yes Annotation/Comment:: Stable in the emergency room. Continue to observe closely secondary to multiple medication changes as above. Qualifiers: Hypertension type: essential hypertension Qualified Code(s): I10 - Essential (primary) hypertension (8) Hypothyroidism SNOMED Code(s): 17629578 Code(s): E03.9 - HYPOTHYROIDISM, UNSPECIFIED Status: Chronic Current Visit: Yes Annotation/Comment:: Note status post partial thyroidectomy's x2 as above. TSH normal today. Free T3 and free T4 to be ordered with a.m. blood work secondary to her previous history of Yasmany's disease, etc. Qualifiers: Hypothyroidism type: postoperative Qualified Code(s): E89.0 - Postprocedural hypothyroidism (9) Osteoarthritis SNOMED Code(s): 349621805 Code(s): M19.90 - UNSPECIFIED OSTEOARTHRITIS, UNSPECIFIED SITE Status: Chronic Priority: Medium Current Visit: Yes Annotation/Comment:: Stable by history Qualifiers: Osteoarthritis location: multiple joints Osteoarthritis type: primary Qualified Code(s): M89.49 - Other hypertrophic osteoarthropathy, multiple sites (10) Peptic reflux disease SNOMED Code(s): 854484933 Code(s): K21.9 - GASTRO-ESOPHAGEAL REFLUX DISEASE WITHOUT ESOPHAGITIS Status: Chronic Priority: Medium Current Visit: Yes Annotation/Comment:: High-dose IV Pepcid initiated shortly after admission with recommended continuation of oral therapy after discharge. Consider additional EGD on an outpatient basis secondary to recent refractory symptoms, although no previous medical therapy. - Problem List Review Problem List Initiated/Reviewed/Updated: Yes - Assessment/Plan Admission H&P: Please use this note as an admission H&P Assessment:: As above Plan: As above. Extensive precautions were given to the patient, who is in agreement with the treatment plan. The patient's condition is stable enough for observation status and general supervision.
[2020-09-14] MEDS ORDERED: Sodium Chloride 0.9% 10 ML Syringe FLUSH PRN ×2 (10:33→12:09)
[2020-09-14] MEDS ORDERED: Famotidine 20 MG/2 ML SDV ONE (11:14)
[2020-09-14] MEDS ORDERED: Temazepam 15 MG Cap PO PRN (12:09)
[2020-09-14] MEDS: Enoxaparin 100 MG/1 ML Syringe SUBCUT SCH (17:29)
[2020-09-14] MEDS: Metoprolol Tartrate 25 MG Tab PO SCH (17:30)
[2020-09-14] MEDS ORDERED: Diltiazem 120 MG Cap.CD PO SCH (18:00)
[2020-09-15] MEDS: Famotidine 20 MG/2 ML SDV IVPUSH SCH ×2 (07:30→07:43)
[2020-09-15] MEDS: Enoxaparin 100 MG/1 ML Syringe SUBCUT SCH (07:42)
[2020-09-15] MEDS: Metoprolol Tartrate 25 MG Tab PO SCH (07:59)
--- NOTE | 2020-09-15 12:21 | PCM.DCSUM1 ---
Discharge Summary - Hospital Course Brief History: Patient evaluated for Afib episode in ER. Converted on own shortly after arrival. Admitted observation - Discharge Data Discharge Date: 09/15/20 Discharge Disposition: Home, Self-Care 01 Condition: Good - Referral to Home Health Primary Care Physician: HERMILA Shin - Discharge Diagnosis/Problem(s) (1) Atrial fibrillation with rapid ventricular response SNOMED Code(s): 253082809725574 ICD Code: I48.91 - UNSPECIFIED ATRIAL FIBRILLATION Status: Acute Priority: High Current Visit: Yes Problem Details: Note spontaneous resolution without medical therapy of her atrial fibrillation shortly after arrival in the emergency room. This is her fourth episode of recurrent atrial fibrillation with no previous anticoagulation therapy. The patient would like to postpone initiating [facility] anticoagulation therapy until she visits with her primary and Cardiology. Her episodes of Afib have been brief and few in number. Will add low dose Cardizem to her daily meds. She is to continue Lopressor. These can be adjusted as needed if BP appears to swing too low. Note that the patient has had a distant negative Cardiolite stress test as above with consideration of repeat study once her medical therapy and heart rhythm have stabilized. She should be discharged with 50% activity restrictions and strict fall precautions until her cardiac status has been clarified with work excuse to be provided at time of discharge. (2) CHF (congestive heart failure) SNOMED Code(s): 84185322 ICD Code: I50.9 - HEART FAILURE, UNSPECIFIED Status: Acute Priority: High Current Visit: Yes Problem Details: Note history of mild recurrent CHF secondary to her atrial fibrillation and secondary tachycardia with normal multiple echocardiograms in the past. Medical records were not available after initial evaluation of this patient secondary to [employer] downtime with echocardiogram repeated on 09/14 in spite of recent echocardiogram on 06/01/2020. Qualifiers: Heart failure type: systolic Heart failure chronicity: acute Qualified Code(s): I50.21 - Acute systolic (congestive) heart failure (3) Chest pain SNOMED Code(s): 92293140 ICD Code: R07.9 - CHEST PAIN, UNSPECIFIED Status: Acute Priority: High Current Visit: Yes Onset Date: 09/14/20 Problem Details: Chest pain protocol initiated immediately upon patient's arrival to the emergency room. Initiated standard rule out MO orders with patient to be placed in observation status. Patient started on subcu Lovenox at VTE/cardiac dose secondary to her recurrent atrial fibrillation. Note that the chest pain did resolve after spontaneous resolution of her atrial fibrillation as below. Serial troponins negative as was telemetry. Qualifiers: Chest pain type: precordial pain Qualified Code(s): R07.2 - Precordial pain (4) Hyperglycemia SNOMED Code(s): 56996489 ICD Code: R73.9 - HYPERGLYCEMIA, UNSPECIFIED Status: Acute Priority: Medium Current Visit: Yes Onset Date: 09/14/20 Problem Details: Glycosylated hemoglobin 6.0 (5) D-dimer, elevated SNOMED Code(s): 959786880 ICD Code: R79.89 - OTHER SPECIFIED ABNORMAL FINDINGS OF BLOOD CHEMISTRY Status: Chronic Priority: Medium Current Visit: Yes Problem Details: Previous history of di dimer elevation with negative CTA of the chest as below. Venous Doppler studies of the lower extremities yesterday negative. No clinical evidence of DVT or PE. Secondary to only mildly elevated D-dimer of less than [address] of the chest will not be ordered at this time. (6) Hyperlipidemia SNOMED Code(s): 20511241 ICD Code: E78.5 - HYPERLIPIDEMIA, UNSPECIFIED Status: Chronic Priority: Medium Current Visit: Yes Problem Details: Note obesity with weight loss in moderation advisable. Fasting lipid profile showed diffuse elevation. To follow up with PCP Qualifiers: Hyperlipidemia type: unspecified Qualified Code(s): E78.5 - Hyperlipidemia, unspecified (7) Hypertension SNOMED Code(s): 94294487 ICD Code: I10 - ESSENTIAL (PRIMARY) HYPERTENSION Status: Chronic Priority: Medium Current Visit: Yes Problem Details: Stable in the emergency room. Follow up with PCP Qualifiers: Hypertension type: essential hypertension Qualified Code(s): I10 - Essential (primary) hypertension (8) Hypothyroidism SNOMED Code(s): 58837157 ICD Code: E03.9 - HYPOTHYROIDISM, UNSPECIFIED Status: Chronic Current Visit: Yes Problem Details: Note status post partial thyroidectomy's x2 as above. TSH normal today. Free T3 and free T4 to be ordered with a.m. blood work secondary to her previous history of Yasmany's disease, etc. 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 Consider additional EGD on an outpatient basis secondary to recent refractory symptoms, although no previous medical therapy. - Patient Summary/Data Hospital Course: Patient converted back to sinus rhythm shortly after arrival to ER. Chest pain protocol initiated due to patient complaining of some chest discomfort associated with the Afib, although that resolved when she converted back to NSR. Initial workup overall unremarkable. Placed on observation/chest pain protocol. Remained in sinus rhythm. Had cardiac echo performed yesterday. Official report not yet available but no thrombus identified. US of legs also showed no evidence of DVT. Patient received Cardizem and Lovenox. Lopressor dose increased. Bradycardia noted. Lopressor decreased to previous level. Plan at this time is to discharge patient. Follow up appointment has been made for next week with her PCP. She is to discuss obtaining a new stress test at that time and get referral to Cardiology. Patient does not wish to be anticoagulated for now given that her episodes of Afib have been only around once a year and very brief. She is willing to have Cardiology weigh in on that intervention. Precautions reviewed/to return to ER if problems re-develop. - Patient Instructions Diet: Anti-Inflammatory Activity: As Tolerated Driving: May Drive Today Showering/Bathing: May Shower Other/Special Instructions: Follow up next week at clinic on at 10am. Discuss: Cardiology referral, possible need for anticoagulation, possible need for stress testing. Recommend anti-inflammatory whole food diet for general wellness. Return to ER if you have problems. Start Magnesium Glycinate, Vitamin D, and Cardizem. - Discharge Plan *PRESCRIPTION DRUG MONITORING PROGRAM REVIEWED*: Not Applicable *COPY OF PRESCRIPTION DRUG MONITORING REPORT IN PATIENT AYAZ: Not Applicable Prescriptions/Med Rec: Diltiazem [Cardizem CD] 120 mg PO QPM #30 cap.cd Magnesium Glycinate, Mag Oxide [Magnesium Glycinate] 240 mg PO QPM #60 capsule Cholecalciferol (Vitamin D3) [Vitamin D3] 2,000 unit PO DAILY #30 capsule Home Medications: Home Meds Aspirin [Halfprin] 1 tab PO DAILY 01/08/20 [History] Levothyroxine Sodium [Synthroid] 137 mcg PO DAILY 09/14/20 [History] Metoprolol Tartrate 25 mg PO DAILY 09/14/20 [History] Cholecalciferol (Vitamin D3) [Vitamin D3] 2,000 unit PO DAILY #30 capsule 09/15/20 [Rx] Diltiazem [Cardizem CD] 120 mg PO QPM #30 cap.cd 09/15/20 [Rx] Magnesium Glycinate, Mag Oxide [Magnesium Glycinate] 240 mg PO QPM #60 capsule 09/15/20 [Rx] Forms: ED Department Discharge Referrals: Lolly Ruiz PA [Primary Care Provider] - - Discharge Summary/Plan Comment DC Time >30 min.: No - General Info Date of Service: 09/15/20 Admission Dx/Problem (Free Text: Afib with RVR Subjective Update: Feels fine/no complaints Functional Status: Reports: Pain Controlled, Tolerating Diet, Ambulating, Urinating. Denies: New Symptoms - Review of Systems General: Reports: No Symptoms HEENT: Denies: Headaches, Sinus Congestion, Sore Throat, Rhinitis, Visual Changes Pulmonary: Reports: No Symptoms Cardiovascular: Reports: No Symptoms. Denies: Palpitations, Lightheadedness Gastrointestinal: Reports: No Symptoms Genitourinary: Reports: No Symptoms Musculoskeletal: Reports: No Symptoms, Other (no acute changes from baseline) Skin: Reports: No Symptoms Neurological: Reports: No Symptoms Psychiatric: Reports: No Symptoms - Patient Data Vitals - Most Recent: Last Vital Signs Temp 36.6 C 09/15/20 06:00 Pulse 57 L 09/15/20 06:00 Resp 12 09/15/20 06:00 BP 132/68 09/15/20 06:00 Pulse Ox 99 09/15/20 06:00 Weight - Most Recent: 92.85 kg I&O - Last 24 hours: Intake & Output 09/14/20 09/15/20 09/15/20 22:59 06:59 14:59 Intake Total 600 640 Output Total 600 900 Balance -600 -300 640 Lab Results - Last 24 hrs: Laboratory Results - last 24 hr 09/14/20 09/15/20 09/15/20 Range/Units 16:20 07:08 07:08 WBC 5.1 (4.0-10.2) K/uL RBC 4.38 (3.77-5.09) M/uL Hgb 13.4 D (11.7-15.5) g/dL Hct 40.5 (34.0-46.0) % MCV 92.5 (84.0-98.0) fL MCH 30.6 (28.2-33.3) pg MCHC 33.1 (31.7-36.0) g/dL RDW 13.7 (11.2-14.1) % Plt Count 218 (150-350) K/uL Neut % (Auto) 55.2 (45.0-80.0) % Lymph % (Auto) 30.1 (10.0-50.0) % [place] % (Auto) 9.8 (2.0-14.0) % Eos % (Auto) 4.3 (0.0-5.0) % Baso % (Auto) 0.6 (0.0-2.0) % Neut # (Auto) 2.83 (1.40-7.00) K/uL Lymph # (Auto) 1.54 (0.50-3.50) K/uL [place] # (Auto) 0.50 (0.00-1.00) K/uL Eos # (Auto) 0.22 (0.00-0.50) K/uL Baso # (Auto) 0.03 (0.00-0.20) K/uL D-Dimer, Quantitative < 100 (0-400) ng/mL Sodium (136-145) mmol/L Potassium (3.5-5.1) mmol/L Chloride (98-107) mmol/L Carbon Dioxide (21.0-32.0) mmol/L BUN (7-18) mg/dL Creatinine (0.51-1.17) mg/dL Est Cr Clr Drug Dosing mL/min Estimated GFR (MDRD) mL/min Glucose (70-99) mg/dL Calcium (8.5-10.1) mg/dL Total Bilirubin (0.2-1.0) mg/dL AST (15-37) U/L ALT (12-78) U/L Alkaline Phosphatase (46-116) IU/L Creatine Kinase 76 (26-308) U/L Creatine Kinase Index 1.2 (0.0-2.5) % CK-MB (CK-2) 0.90 (0.00-3.60) ng/mL Troponin I 0.000 (0.000-0.056) ng/mL NT-Pro-B Natriuret Pep (0-125) pg/mL Total Protein (6.4-8.2) g/dL Albumin (3.4-5.0) g/dL 09/15/20 Range/Units 07:08 WBC (4.0-10.2) K/uL RBC (3.77-5.09) M/uL Hgb (11.7-15.5) g/dL Hct (34.0-46.0) % MCV (84.0-98.0) fL MCH (28.2-33.3) pg MCHC (31.7-36.0) g/dL RDW (11.2-14.1) % Plt Count (150-350) K/uL Neut % (Auto) (45.0-80.0) % Lymph % (Auto) (10.0-50.0) % [place] % (Auto) (2.0-14.0) % Eos % (Auto) (0.0-5.0) % Baso % (Auto) (0.0-2.0) % Neut # (Auto) (1.40-7.00) K/uL Lymph # (Auto) (0.50-3.50) K/uL [place] # (Auto) (0.00-1.00) K/uL Eos # (Auto) (0.00-0.50) K/uL Baso # (Auto) (0.00-0.20) K/uL D-Dimer, Quantitative (0-400) ng/mL Sodium 140 (136-145) mmol/L Potassium 4.5 (3.5-5.1) mmol/L Chloride 107 (98-107) mmol/L Carbon Dioxide 26.2 (21.0-32.0) mmol/L BUN 12 (7-18) mg/dL Creatinine 0.97 (0.51-1.17) mg/dL Est Cr Clr Drug Dosing 44.21 mL/min Estimated GFR (MDRD) 58 mL/min Glucose 120 H (70-99) mg/dL Calcium 8.7 (8.5-10.1) mg/dL Total Bilirubin 0.5 (0.2-1.0) mg/dL AST 13 L (15-37) U/L ALT 25 (12-78) U/L Alkaline Phosphatase 38 L (46-116) IU/L Creatine Kinase 52 (26-308) U/L Creatine Kinase Index 1.5 (0.0-2.5) % CK-MB (CK-2) 0.80 (0.00-3.60) ng/mL Troponin I 0.000 (0.000-0.056) ng/mL NT-Pro-B Natriuret Pep 286 H (0-125) pg/mL Total Protein 6.7 (6.4-8.2) g/dL Albumin 3.1 L (3.4-5.0) g/dL Med Orders - Current: Current Medications Acetaminophen (Acetaminophen 325 Mg Tab) 650 mg PO Q4H PRN PRN Reason: WHEELER, Pain, fever >100.5 Diltiazem HCl (Diltiazem 120 Mg Cap.Cd) 120 mg PO QPM [facility] Last Admin: 09/14/20 17:30 Dose: 120 mg Documented by: Enoxaparin Sodium (Enoxaparin 100 Mg/1 Ml Syringe) 100 mg SUBCUT Q12H [facility] Last Admin: 09/14/20 11:03 Dose: Not Given Documented by: Famotidine (Famotidine 20 Mg/2 Ml Sdv) 20 mg IVPUSH BID [facility] Last Admin: 09/15/20 07:43 Dose: 20 mg Documented by: Metoprolol Tartrate (Metoprolol Tartrate 25 Mg Tab) 25 mg PO BID [facility] Last Admin: 09/15/20 07:59 Dose: Not Given Documented by: Sodium Chloride (Sodium Chloride 0.9% 10 Ml Syringe) 10 ml FLUSH ASDIRECTED PRN PRN Reason: Keep Vein Open Last Admin: 09/14/20 11:16 Dose: 10 ml Documented by: Sodium Chloride (Sodium Chloride 0.9% 10 Ml Syringe) 10 ml FLUSH Q12HR PRN PRN Reason: Keep Vein Open Temazepam (Temazepam 15 Mg Cap) 15 mg PO BEDTIME PRN PRN Reason: Insomnia Discontinued Medications Enoxaparin Sodium (Enoxaparin 100 Mg/1 Ml Syringe) 100 mg .ROUTE .STK-MED ONE Stop: 09/14/20 03:41 Famotidine (Famotidine 20 Mg/2 Ml Sdv) 40 mg IVPUSH ONETIME ONE Stop: 09/14/20 08:47 Last Admin: 09/14/20 11:16 Dose: 40 mg Documented by: Famotidine (Famotidine 20 Mg/2 Ml Sdv) Confirm Administered Dose 40 mg .ROUTE .STK-MED ONE Stop: 09/14/20 11:15 Last Admin: 09/14/20 12:50 Dose: Not Given Documented by: Metoprolol Tartrate (Metoprolol Tartrate 25 Mg Tab) 25 mg .ROUTE .STK-MED ONE Stop: 09/14/20 03:41 Ticagrelor (Ticagrelor 90 Mg Tab) 180 mg PO .STK-MED ONE Stop: 09/14/20 03:41 - Exam Quality Assessment: Reports: DVT Prophylaxis General: Reports: Alert, Oriented, Cooperative, No Acute Distress HEENT: Reports: Pupils Equal, Pupils Reactive, EOMI, Mucous Membr. Moist/[place] Neck: Reports: Supple Lungs: Reports: Clear to Auscultation, Normal Respiratory Effort Cardiovascular: Reports: Regular Rate, Regular Rhythm GI/Abdominal Exam: Normal Bowel Sounds, Soft, Non-Tender, No Distention (Female) Exam: Deferred Rectal (Female) Exam: Deferred Back Exam: Denies: Muscle Spasm Extremities: Normal Range of Motion, Non-Tender Skin: Reports: Warm Neurological: Reports: No New Focal Deficit Psy/Mental Status: Reports: Alert, Normal Affect, Normal Mood #1 Interpretation EKG Date: 09/15/20 Time: 07:29 Rhythm: Other (Bradycardia) Rate (Beats/Min): 55 [place]: Normal P-Wave: Present QRS: Normal ST-T: Normal QT: Normal
== END 2020-09-15 12:47 | disposition home or self-care (01) ==
LOC: LL.ED 03:05 → LL.MS 04:30
PROVIDERS: ADMIT Family Medicine; ATTEND Family Medicine
DX: I48.91 Unspecified atrial fibrillation (principal); R06.00 Dyspnea, unspecified; I11.0 Hypertensive heart disease with heart failure; I50.9 Heart failure, unspecified; E78.00 Pure hypercholesterolemia, unspecified; J44.9 Chronic obstructive pulmonary disease, unspecified; E03.9 Hypothyroidism, unspecified; E66.9 Obesity, unspecified; Z98.890 Other specified postprocedural states; M89.49 Other hypertrophic osteoarthropathy, multiple sites; Z79.899 Other long term (current) drug therapy; R78.89 Finding of other specified substances, not normally found in blood; R73.9 Hyperglycemia, unspecified; K21.9 Gastro-esophageal reflux disease without esophagitis
CPT/HCPCS: 36415; 71045; 80053; 80061; 82550; 82553; 83036; 83605; 83735; 83880; 84484; 85025; 85379; 85610; 85730; 93005; 93306; 93970; 96372; 96374; 99217; 99220; 99285-25; A9270-GY; G0378; J1650; J3490

== ENCOUNTER 2020-11-24 07:19 | Emergency (ER) | payer BC ==
[2020-11-24] MEDS ORDERED: Sodium Chloride 0.9% 10 ML Syringe FLUSH PRN ×2 (07:31→08:14)
[2020-11-24] MEDS ORDERED: GI Cocktail Oral Solution 30 ML PO ONE (07:31)
[2020-11-24] MEDS ORDERED: Morphine 2 MG/ML SYRINGE IVPUSH ONE (07:43)
[2020-11-24] MEDS: Nitroglycerin 0.4 MG Tab.SL SL PRN ×2 (07:48→07:56)
--- NOTE | 2020-11-24 07:51 | EDM.PDOC ---
ED HPI GENERAL MEDICAL PROBLEM - General Chief Complaint: Chest Pain Stated Complaint: Chest Pain Time Seen by Provider: 11/24/20 07:19 Source of Information: Reports: Patient, EMS History Limitations: Reports: No Limitations - History of Present Illness INITIAL COMMENTS - FREE TEXT/NARRATIVE: Patient comes emergency department today from home by ambulance with complaints of chest pain. This patient was up this morning when she was sitting in the bathroom suddenly felt a tightness sensation in her mid sternum that radiates into her back. Is a constant squeezing pressure. Nothing makes it worse or better. She did not become diaphoretic. She has no shortness of breath. She has no nausea or vomiting. She has no palpitations weakness dizziness lightheadedness. No syncope. No abdominal pain nausea or vomiting. The pain is constant and does not get better or worse. She was given 3 baby aspirin and 1 nitro prior to arrival without any improvement. She does have a history of sleep apnea as well as atrial fibrillation. She actually had a stress test yesterday that she is still waiting on the results for. - Related Data Allergies Allergy/AdvReac Type Severity Reaction Status Date / Time No Known Allergies Allergy Verified 09/14/20 09:21 Home Meds: Home Meds Levothyroxine Sodium [Synthroid] 137 mcg PO DAILY 09/14/20 [History] Metoprolol Tartrate 25 mg PO DAILY 09/14/20 [History] Cholecalciferol (Vitamin D3) [Vitamin D3] 2,000 unit PO Q12HR 11/24/20 [History] Warfarin [Coumadin] 2.5 mg PO SUTUTH@1800 11/24/20 [History] Warfarin [Coumadin] 5 mg PO MOWETHSA@1800 11/24/20 [History] Past Medical History HEENT History: Reports: Impaired Vision. Denies: Allergic Rhinitis, Cataract, Glaucoma, Hard of Hearing, Macular Degeneration, Otitis Media, Retinal Detachment Other HEENT History: The patient wears glasses. Cardiovascular History: Reports: Afib, Heart Failure, High Cholesterol, Hypertension, Other (See Below). Denies: Aneurysm, Arrhythmia, Blood Clots/VTE/DVT, CAD, Heart Murmur, VA, PVD, Syncope Other Cardiovascular History: Mild hyperlipidemia with no current medical therapy. Recurrent atrial fibrillation/flutter since 04/25/2017 with additional episode on 04/25/2018 with evaluations in this facility on those occasions. History of D-dimer elevation in April 2017 with negative CTA of the chest as below. History of borderline intermittent CHF likely secondary to atrial fibrillation with rapid ventricular response. Respiratory History: Reports: COPD, Pulmonary Fibrosis, Other (See Below). Denies: Asthma, Bronchitis, Recurrent, Intubation, Difficult, Intubation, Previous, PE, Pneumonia, Recurrent, Pneumothorax, Sleep Apnea, TB Other Respiratory History: Borderline COPD and pulmonary fibrosis per chest x- ray with no current medical therapy. Gastrointestinal History: Reports: Colon Polyp, Diverticulosis, GERD, Other (See Below). Denies: Bowel Obstruction, Celiac Disease, Cholelithiasis, Chronic Constipation, Chronic Diarrhea, Fecal Incontinence, Gastritis, GI Bleed, Helicobacter Pylori, Hiatal Hernia, Inflammatory Bowel Disease, Irritable Bowel Syndrome, Jaundice, Pancreatitis, PUD Other Gastrointestinal History: Tubular adenoma removed from the sigmoid colon on 01/08/2020 with mild sigmoid diverticulosis noted at that time. Dysphagia secondary to C-spine fixation. Genitourinary History: Reports: None. 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 Denies: Dysfunctional Uterine Bleeding, Endometriosis, Fibroids, , Spontaneous Other FOOD PROCESSING SCIENTIST History: Menopause at about age 56. Musculoskeletal History: Reports: Arthritis, Back Pain, Chronic, Fracture, Neck Pain, Chronic, Osteoarthritis, Other (See Below). Denies: Amputation, Gout, Osteoporosis, RA, SLE Other Musculoskeletal History: History of right-sided C6-C7 disc herniation ve rsus questionable possible cervical fracture secondary to a fall in 2005 with subsequent spinal fusion as above. 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 Minimal scoliosis. Neurological History: Reports: None. Denies: Cerebral Aneurysms, Concussion, CVA, Headaches, Chronic, Head Trauma, Migraines, MS, Neuropathy, Diabetic, Neuropathy, Peripheral, Parkinson's, Seizure, TIA Psychiatric History: Reports: None. Denies: Abuse, Victim of, ADD, ADHD, Addiction, Alzheimers Disease, Anxiety, Dementia, Depression, Psych Hospitalization(s), PTSD, Suicide Attempt, Suicidal Ideation Endocrine/Metabolic History: Reports: Hypothyroidism, Multinodular Thyroid, Obesity/BMI 30+, Other (See Below). 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 Hematologic History: Reports: Blood Transfusion(s), Other (See Below). Denies: Anemia Other Hematologic History: Blood transfusions for orthopedic surgeries. Immunologic History: Reports: None. Denies: AIDS, HIV, SLE Oncologic (Cancer) History: Reports: None. Denies: Basal Cell Carcinoma, Breas t, Cervix, Colon, Hodgkin's Lymphoma, Leukemia, Lymphoma, Malignant Melanoma, Non-Hodgkin's Lymphoma, Ovarian, Squamous Cell Carcinoma, Uterine Dermatologic History: Reports: None. Denies: Eczema, Psoriasis - Infectious Disease History Infectious Disease History: Reports: Chicken Pox, Measles, Mumps. Denies: C- Difficile, Meningitis, Mononucleosis, MRSA, Novel Coronavirus, Pertussis (Whooping Cough), Rheumatic Fever, Rubella, Scarlet Fever, Shingles, TB, VRE - Past Surgical History Cardiovascular Surgical History: Reports: None. Denies: Varicose Respiratory Surgical History: Reports: None. Denies: Thoracentesis GI Surgical History: Reports: Colonoscopy, Polypectomy, Other (See Below). Denies: Appendectomy, Cholecystectomy, EGD, Hernia, Abdominal, Hernia, Inguinal, Hernia Repair/Other Other GI Surgeries/Procedures: Colonoscopy on 01/08/2020 with excision of tubular adenoma from the sigmoid region at that time as above. Female Surgical History: Reports: None. Denies: Breast Biopsy, Section, D&C, Salpingo-Oophorectomy, Tubal Ligation Endocrine Surgical History: Reports: Thyroid Biopsy, Thyroidectomy, Other (See Below) Other Endocrine Surgeries/Procedures: Left sided partial thyroidectomy secondary to multinodular goiter initially in about 2012 with subsequent repeat additional partial thyroidectomy in about 2013. Neurological Surgical History: Reports: C-Spine, Discectomy, Laminectomy, Spinal Fusion, Other (See Below). Denies: Lumbar Spine, Sacral Spine, Scoliosis, Thoracic Spine, Vertebroplasty Musculoskeletal Surgical History: Reports: Hip Replacement, Joint Replacement, Other (See Below). 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 Oncologic Surgical History: Reports: None. Denies: Biopsy of Breast Dermatological Surgical History: Reports: None. Denies: Plastic Surgical Reconstruction/Repair, Skin Biopsy - Past Imaging History Past Imaging History: Reports: Cardiac Echo (Normal echocardiogram on 06/01/2020 with ejection fraction of 55-60% with previous echocardiograms on 05/20/2018 and 05/07/2017.), CAT Scan (Negative CTA of the chest on 04/25/[address] of the neck on 01/15/2008.), Mammogram (Last on 06/21/2020), MRI (MRI of the C- spine on 06/19/2006.), Stress Testing (Negative Cardiolite stress test on 05/03/2017 with ejection fraction of 74%.), Ultrasound (Thyroid ultrasound on 01/06/2008, 05/23/2018, and 04/27/2017.), Venous Doppler (Negative venous Doppler studies of the right leg on 08/18/2013.) Social & Family History - Family History HEENT: Reports: None. Denies: Glaucoma, Macular Degeneration, Retinal Detachment Cardiac: Reports: Afib, CAD, Heart Failure, High Cholesterol, Hypertension, VA, Pacemaker, Other (See Below). Denies: Aneurysm, Arrhythmia, Blood Clots/VTE/DVT, PVD/COD, Syncope Other Cardiac Family History: Mother with VA in her 50s. Father with fatal VA in his 70s prior to planned pacemaker placement for unknown reason. Maternal grandfather and 4 maternal uncles with fatal MIs in their 60s to 70s. First cousin with atrial fibrillation. Mother with hypertension and hyperlipidemia. Respiratory: Reports: Asthma, Other (See Below). Denies: COPD, PE, Pneumothorax, Sleep Apnea Other Respiratory Family Hisory: Paternal grandmother with asthma. A sister with sleep apnea. GI: Reports: Cholelithiasis, Other (See Below). Denies: Celiac Disease, Colon Polyps, GERD, GI bleed, Inflammatory Bowel Disease, Irritable Bowel Syndrome, PUD Other GI Family History: Mother and sister with cholelithiasis. : Reports: None. Denies: Renal Calculus, Renal Disease/Insufficiency OBGYN: Reports: Dysfunctional uterine bleeding, Fibroids, Other (See Below). Denies: Endometriosis, Recurrent Spontaneous Other OBGYN Family History: Sister with fibroids and secondary dysfunctional uterine bleeding. Musculoskeletal: Reports: Arthritis, RA, Other (See Below). Denies: Gout, Osteoarthritis, Osteoporosis Other Musculoskeletal Family History: Father, sister, and paternal grandfather with rheumatoid arthritis. Neurological: Reports: None. Denies: Alzheimers Disease, Cerebral Aneurysms, CVA, Dementia, Migraines, MS, Parkinson's, Seizure, TIA Psychiatric: Reports: Anxiety, Depression, Other (See Below). Denies: Abuse, Victim of, ADD, Psych Hospitalization(s), Psychosis, PTSD, Suicide Attempt Other Psychiatric Family History: Sister with anxiety depression disorder. Endocrine/Metabolic: Reports: Hypothyroidism, Other (See Below). Denies: Diabetes, Gestational, Diabetes, Type I, Diabetes, type II, Diabetes Mellitus, Type 3c, IDDM Other Endocrine/Metabolic Family History: Father with hypothyroidism. Hematologic: Reports: None. Denies: Anemia, SLE Immunologic: Reports: None. Denies: AIDS, HIV, SLE Dermatologic: Reports: None. Denies: Eczema, Psoriasis Oncologic: Reports: Skin, Other (See Below) Other Oncologic Family History: Maternal aunt with unknown type of cancer. Mother with unknown type of skin cancer. - Caffeine Use Caffeine Use: Reports: Soda (2 sodas per week). Denies: Coffee, Energy Drinks, Tea Other Caffeine Use: occasionally - Living Situation & Occupation Living situation: Reports: (2010, no children), Alone Occupation: Employed ([employer]) ED ROS GENERAL - Review of Systems Review Of Systems: Comprehensive ROS is negative, except as noted in HPI. ED EXAM, GENERAL - Physical Exam Exam: See Below Exam Limited By: No Limitations General Appearance: Alert, WD/WN, No Apparent Distress Eye Exam: Bilateral Eye: EOMI, PERRL Ears: Normal External Exam Nose: Normal Inspection, Normal Mucosa Throat/Mouth: Normal Inspection, Normal Lips Head: Atraumatic, Normocephalic Neck: Normal Inspection, Supple, Non-Tender, Full Range of Motion Respiratory/Chest: No Respiratory Distress, Lungs Clear, Normal Breath Sounds, Chest Non-Tender Cardiovascular: Normal Peripheral Pulses, Regular Rate, Rhythm GI/Abdominal: Normal Bowel Sounds, Soft, Non-Tender (Female) Exam: Deferred Rectal (Female) Exam: Deferred Back Exam: Normal Inspection, Full Range of Motion Extremities: Normal Inspection, Normal Range of Motion, Non-Tender, No Pedal Edema, Normal Capillary Refill Neurological: Alert, Oriented, CN II-XII Intact, Normal Cognition, No Motor/Sensory Deficits Psychiatric: Normal Affect, Normal Mood Skin Exam: Dry, Intact, Cool, Pallor Lymphatic: No Adenopathy Course - Vital Signs Last Recorded V/S: Last Vital Signs Temp 97.3 F 11/24/20 07:20 Pulse 57 L 11/24/20 07:20 Resp 19 11/24/20 07:20 BP 116/58 L 11/24/20 07:56 Pulse Ox 99 11/24/20 07:20 - Orders/Labs/Meds Orders: Active Orders 24 hr Category Date Time Status EKG Documentation Completion [RC] ASDIRECTED Care 11/24/20 07:31 Active Peripheral IV Care [RC] . DIRECTED Care 11/24/20 07:31 Active Peripheral IV Care [RC] . DIRECTED Care 11/24/20 08:14 Ordered Chest 2V [CR] Urgent Exams 11/24/20 07:31 Ordered INR,PT,PROTHROMBIN TIME [COAG] Stat Lab 11/24/20 07:37 Ordered PTT,PARTIAL THROMBOPLSTIN TIME [COAG] Stat Lab 11/24/20 07:33 Received Heparin Sodium/0.45% NaCl [Heparin 25,000 Units in 1/2 Med 11/24/20 08:15 Ordered NS 500 ML] 500 ml IV TITRATE Nitroglycerin 25 MG in D5W @ 10 MCG/MIN (250ml) Premix Med 11/24/20 08:15 Ordered Nitroglycerin/D5W [Nitroglycerin 25 MG/D5W 250 ML] 25 mg in 250 ml IV TITRATE Nitroglycerin [Nitrostat] Med 11/24/20 07:43 Ordered 0.4 mg SL Q5M PRN Sodium Chloride 0.9% [Saline Flush] Med 11/24/20 07:31 Active 10 ml FLUSH ASDIRECTED PRN Sodium Chloride 0.9% [Saline Flush] Med 11/24/20 08:14 Ordered 10 ml FLUSH ASDIRECTED PRN Peripheral IV Insertion Adult [OM.PC] Stat Oth 11/24/20 07:31 Ordered Peripheral IV Insertion Adult [OM.PC] Stat Oth 11/24/20 08:14 Ordered Medication Orders Heparin Sodium/Sodium Chloride (Heparin 25,000 Units In 1/2 Ns 500 Ml) 500 mls @ 22.643 mls/hr IV TITRATE CAROLYNE; Protocol Nitroglycerin/Dextrose (Nitroglycerin 25 Mg/D5w 250 Ml) 25 mg in 250 mls @ 6 mls/hr IV TITRATE CAROLYNE; Protocol Nitroglycerin (Nitroglycerin 0.4 Mg Tab.Sl) 0.4 mg SL Q5M PRN PRN Reason: Chest Pain Last Admin: 11/24/20 07:56 Dose: 0.4 mg Documented by: Admin: 11/24/20 07:48 Dose: 0.4 mg Documented by: AMY Sodium Chloride (Sodium Chloride 0.9% 10 Ml Syringe) 10 ml FLUSH ASDIRECTED PRN PRN Reason: Keep Vein Open Sodium Chloride (Sodium Chloride 0.9% 10 Ml Syringe) 10 ml FLUSH ASDIRECTED PRN PRN Reason: Keep Vein Open Labs: Laboratory Tests 11/24/20 11/24/20 Range/Units 07:33 07:33 WBC 4.9 (4.0-10.2) K/uL RBC 4.54 (3.77-5.09) M/uL Hgb 13.7 (11.7-15.5) g/dL Hct 41.9 (34.0-46.0) % MCV 92.3 (84.0-98.0) fL MCH 30.2 (28.2-33.3) pg MCHC 32.7 (31.7-36.0) g/dL RDW 13.4 (11.2-14.1) % Plt Count 255 (150-350) K/uL Neut % (Auto) 60.9 (45.0-80.0) % Lymph % (Auto) 25.6 (10.0-50.0) % [place] % (Auto) 9.6 (2.0-14.0) % Eos % (Auto) 3.5 (0.0-5.0) % Baso % (Auto) 0.4 (0.0-2.0) % Neut # (Auto) 2.97 (1.40-7.00) K/uL Lymph # (Auto) 1.25 (0.50-3.50) K/uL [place] # (Auto) 0.47 (0.00-1.00) K/uL Eos # (Auto) 0.17 (0.00-0.50) K/uL Baso # (Auto) 0.02 (0.00-0.20) K/uL Sodium 141 (136-145) mmol/L Potassium 3.9 (3.5-5.1) mmol/L Chloride 106 (98-107) mmol/L Carbon Dioxide 23.5 (21.0-32.0) mmol/L BUN 15 (7-18) mg/dL Creatinine 0.92 (0.51-1.17) mg/dL Est Cr Clr Drug Dosing 46.62 mL/min Estimated GFR (MDRD) > 60 mL/min Glucose 155 H (70-99) mg/dL Calcium 8.8 (8.5-10.1) mg/dL Total Bilirubin 0.5 (0.2-1.0) mg/dL AST 17 (15-37) U/L ALT 24 (12-78) U/L Alkaline Phosphatase 45 L (46-116) IU/L Troponin I 1.650 H* (0.000-0.056) ng/mL Total Protein 7.4 (6.4-8.2) g/dL Albumin 3.5 (3.4-5.0) g/dL Meds: Medications Generic Name Dose Route Start Last Admin Trade Name Freq PRN Reason Stop Dose Admin Heparin Sodium/Sodium Chloride 500 mls @ 22.643 mls/hr 11/24/20 08:15 Heparin 25,000 Units In 1/2 Ns 500 Ml IV TITRATE CAROLYNE Protocol 12 UNITS/KG/HR Nitroglycerin/Dextrose 25 mg in 250 mls @ 6 mls/hr 11/24/20 08:15 Nitroglycerin 25 Mg/D5w 250 Ml IV TITRATE CAROLYNE Protocol 10 MCG/MIN Nitroglycerin 0.4 mg 11/24/20 07:43 11/24/20 07:56 Nitroglycerin 0.4 Mg Tab.Sl SL 0.4 mg Q5M PRN Administration Chest Pain Sodium Chloride 10 ml 11/24/20 07:31 Sodium Chloride 0.9% 10 Ml Syringe FLUSH ASDIRECTED PRN Keep Vein Open Sodium Chloride 10 ml 11/24/20 08:14 Sodium Chloride 0.9% 10 Ml Syringe FLUSH ASDIRECTED PRN Keep Vein Open Discontinued Medications Generic Name Dose Route Start Last Admin Trade Name Carlos PRN Reason Stop Dose Admin Al Hydroxide/Mg Hydroxide 30 ml 11/24/20 07:31 Gi Cocktail Oral Solution 30 Ml PO 11/24/20 07:32 ONETIME ONE Heparin Sodium (Porcine) 4,000 units 11/24/20 08:08 Heparin Sodium 5,000 Units/Ml Vial IVPUSH 11/24/20 08:09 .BOLUS ONE Morphine Sulfate 2 mg 11/24/20 07:43 11/24/20 07:50 Morphine 2 Mg/Ml Syringe IVPUSH 11/24/20 07:44 2 mg ONETIME ONE Administration - Re-Assessments/Exams Free Text/Narrative Re-Assessment/Exam: 11/24/20 07:[address] elevation or depression when reviewed extemporaneously by myself. I did review her [facility] chart for where she had a stress test completed yesterday. From the porter luggage she has an abnormal exercise stress myocardial perfusion imaging study demonstrating a small area of mild ischemia at the apical anterior segment and the apex proper and a small area of mildly diminished tracer activity at the base of the mid inferior wall. TID ratio is 1.21, which represents an abnormal value for an exercise imaging study suggesting of left main or multivessel coronary artery disease. LVEF is within normal limit. Wall motion is normal. Repeat 2 SL nitro in the ED without any change in her CP. Morphine 2mg IVP without change in pain. Troponin returns with mild elevation at 1.650 with continued CP. Heparin gtt and bolus started and nitro gtt as well. I called and spoke with Dr. Belcher and La at [facility] in [place] with my concerns of ACS and NSTEMI. HPI ER COURSE findings and concerns were relayed to them verbally over the phone. Their questions were answered and they accepted this patient in transfer at this time for further care management and evaluation. I discussed my concerns with the patient of her having a cardiac event. I reviewed the plan of care with the patient. She was comfortable with this plan and her questions answered. We will hold on metoprolol at this time with her heart rate in the mid 50s. Departure - Departure Time of Disposition: 08:05 Disposition: DC/Tfer to Acute Hospital 02 Reason for Transfer *Q: Other Clinical Impression: NSTEMI (non-ST elevated myocardial infarction) Referrals: Lolly Ruiz PA [Primary Care Provider] - Forms: ED Department Discharge, Interfacility Transfer EMTALA Sepsis Event Note (ED) - Focused Exam Vital Signs: Vital Signs Temp Pulse Resp BP BP Pulse Ox 11/24/20 07:56 116/58 L 11/24/20 07:48 147/68 H 11/24/20 07:20 97.3 F 57 L 19 152/73 H 99 - My Orders Last 24 Hours: My Active Orders 11/24/20 07:31 EKG Documentation Completion [RC] ASDIRECTED Peripheral IV Care [RC] . DIRECTED Chest 2V [CR] Urgent Sodium Chloride 0.9% [Saline Flush] 10 ml FLUSH ASDIRECTED PRN Peripheral IV Insertion Adult [OM.PC] Stat 11/24/20 07:33 PTT,PARTIAL THROMBOPLSTIN TIME [COAG] Stat 11/24/20 07:37 INR,PT,PROTHROMBIN TIME [COAG] Stat 11/24/20 07:43 Nitroglycerin [Nitrostat] 0.4 mg SL Q5M PRN 11/24/20 08:14 Peripheral IV Care [RC] . DIRECTED Sodium Chloride 0.9% [Saline Flush] 10 ml FLUSH ASDIRECTED PRN Peripheral IV Insertion Adult [OM.PC] Stat 11/24/20 08:15 Heparin Sodium/0.45% NaCl [Heparin 25,000 Units in 1/2 NS 500 ML] 500 ml IV TITRATE Nitroglycerin 25 MG in D5W @ 10 MCG/MIN (250ml) Premix Nitroglycerin/D5W [Nitroglycerin 25 MG/D5W 250 ML] 25 mg in 250 ml IV TITRATE - Assessment/Plan Last 24 Hours: My Active Orders 11/24/20 07:31 EKG Documentation Completion [RC] ASDIRECTED Peripheral IV Care [RC] . DIRECTED Chest 2V [CR] Urgent Sodium Chloride 0.9% [Saline Flush] 10 ml FLUSH ASDIRECTED PRN Peripheral IV Insertion Adult [OM.PC] Stat 11/24/20 07:33 PTT,PARTIAL THROMBOPLSTIN TIME [COAG] Stat 11/24/20 07:37 INR,PT,PROTHROMBIN TIME [COAG] Stat 11/24/20 07:43 Nitroglycerin [Nitrostat] 0.4 mg SL Q5M PRN 11/24/20 08:14 Peripheral IV Care [RC] . DIRECTED Sodium Chloride 0.9% [Saline Flush] 10 ml FLUSH ASDIRECTED PRN Peripheral IV Insertion Adult [OM.PC] Stat 11/24/20 08:15 Heparin Sodium/0.45% NaCl [Heparin 25,000 Units in 1/2 NS 500 ML] 500 ml IV TITRATE Nitroglycerin 25 MG in D5W @ 10 MCG/MIN (250ml) Premix Nitroglycerin/D5W [Nitroglycerin 25 MG/D5W 250 ML] 25 mg in 250 ml IV TITRATE
[2020-11-24 08:01] LABS: PTT,PARTIAL THROMBOPLSTIN TIME 39.5 SEC (24.5-32.8)
[2020-11-24 08:08] LABS: CHLORIDE,CL 106 mmol/L (98-107); SODIUM,NA 141 mmol/L (136-145)
[2020-11-24] MEDS ORDERED: Heparin Sodium 5,000 Units/ML Vial IVPUSH ONE (08:08)
[2020-11-24] MEDS ORDERED: Heparin Sodium/0.45% NaCl 500 ML IV SCH (08:15)
[2020-11-24] MEDS ORDERED: Nitroglycerin/D5W 25 MG/250 ML BOTTLE IV SCH (08:15)
[2020-11-24] MEDS ORDERED: Sodium Chloride 0.9% 250 ML IV SCH ×2 (08:30→08:45)
== END 2020-11-24 09:00 ==
LOC: LL.ED 07:19
DX: I21.4 Non-ST elevation (NSTEMI) myocardial infarction (principal); E03.9 Hypothyroidism, unspecified; Z79.01 Long term (current) use of anticoagulants; Z79.899 Other long term (current) drug therapy
CPT/HCPCS: 36415; 71046; 80053; 84484; 85025; 85610; 85730; 93005; 96365; 96368; 96375; 99284; 99285-25; A9270-GY; J1644; J2270; J3490; J7050

== ENCOUNTER 2020-12-05 00:59 | Emergency (ER) | payer BC ==
[2020-12-05] MEDS ORDERED: Diltiazem 25 MG/5 ML SDV IVPUSH ONE ×2 (01:10→01:26)
[2020-12-05] MEDS ORDERED: Magnesium Sulfate/D5W 1 GM/100 ML Premix Bag IV ONE (01:31)
--- NOTE | 2020-12-05 01:39 | EDM.PDOC ---
ED HPI GENERAL MEDICAL PROBLEM - General Chief Complaint: Cardiovascular Problem Stated Complaint: heart palpitations Time Seen by Provider: 12/05/20 01:03 Source of Information: Reports: Patient, EMS History Limitations: Reports: No Limitations - History of Present Illness INITIAL COMMENTS - FREE TEXT/NARRATIVE: Patient noted that she started to have palpitations/rapid heart rate starting around 10:30pm. Did not go away. Mild lightheadedness and SOB with activity. Called EMS. No other reported acute changes. Currently no SOB/dizziness. Recent bypass surgery at [facility] November 25. Discharged from [facility] less than 48 hours ago. Hx of afib in past. Had always converted on own without cardioversion. This is more rapid rate than previous episodes. Treatments VENTILATED RIB FITTER: Reports: Other Medication(s) Other Treatments VENTILATED RIB FITTER: gas x Chest Pain Score (Numeric/FACES): 9 - Related Data Allergies Allergy/AdvReac Type Severity Reaction Status Date / Time No Known Allergies Allergy Verified 09/14/20 09:21 Home Meds: Home Meds Levothyroxine Sodium [Synthroid] 137 mcg PO DAILY 09/14/20 [History] Metoprolol Tartrate 50 mg PO Q12HR 09/14/20 [History] Cholecalciferol (Vitamin D3) [Vitamin D3] 2,000 unit PO Q12HR 11/24/20 [History] Warfarin [Coumadin] 2.5 mg PO SUTUTH@1800 11/24/20 [History] Warfarin [Coumadin] 5 mg PO MOWETHSA@1800 11/24/20 [History] Past Medical History HEENT History: Reports: Impaired Vision. Denies: Allergic Rhinitis, Cataract, Glaucoma, Hard of Hearing, Macular Degeneration, Otitis Media, Retinal Detachment Other HEENT History: The patient wears glasses. Cardiovascular History: Reports: Afib, Bypass, CAD, Heart Failure, High Cholesterol, Hypertension, Other (See Below). Denies: Aneurysm, Arrhythmia, Blood Clots/VTE/DVT, Heart Murmur, OK, PVD, Syncope Other Cardiovascular History: Mild hyperlipidemia with no current medical therapy. Recurrent atrial fibrillation/flutter since 04/25/2017 with additional episode on 04/25/2018 with evaluations in this facility on those occasions. History of D-dimer elevation in April 2017 with negative CTA of the chest as below. History of borderline intermittent CHF likely secondary to atrial fibrillation with rapid ventricular response. Respiratory History: Reports: COPD, Pulmonary Fibrosis, Other (See Below). Denies: Asthma, Bronchitis, Recurrent, Intubation, Difficult, Intubation, Previous, PE, Pneumonia, Recurrent, Pneumothorax, Sleep Apnea, TB Other Respiratory History: Borderline COPD and pulmonary fibrosis per chest x- ray with no current medical therapy. Gastrointestinal History: Reports: Colon Polyp, Diverticulosis, GERD, Other (See Below). Denies: Bowel Obstruction, Celiac Disease, Cholelithiasis, Chronic Constipation, Chronic Diarrhea, Fecal Incontinence, Gastritis, GI Bleed, Helicobacter Pylori, Hiatal Hernia, Inflammatory Bowel Disease, Irritable Bowel Syndrome, Jaundice, Pancreatitis, PUD Other Gastrointestinal History: Tubular adenoma removed from the sigmoid colon on 01/08/2020 with mild sigmoid diverticulosis noted at that time. Dysphagia secondary to C-spine fixation. Genitourinary History: Reports: None. 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 Denies: Dysfunctional Uterine Bleeding, Endometriosis, Fibroids, , Spontaneous Other ELECT[employer]ICIAN [employer]ENTICE POWERHOUSE History: Menopause at about age 56. Musculoskeletal History: Reports: Arthritis, Back Pain, Chronic, Fracture, Neck Pain, Chronic, Osteoarthritis, Other (See Below). Denies: Amputation, Gout, Osteoporosis, RA, SLE Other Musculoskeletal History: History of right-sided C6-C7 disc herniation versus questionable possible cervical fracture secondary to a fall in 2005 with subsequent spinal fusion as above. 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 Minimal scoliosis. Neurological History: Reports: None. Denies: Cerebral Aneurysms, Concussion, CVA, Headaches, Chronic, Head Trauma, Migraines, MS, Neuropathy, Diabetic, Neuropathy, Peripheral, Parkinson's, Seizure, TIA Psychiatric History: Reports: None. Denies: Abuse, Victim of, ADD, ADHD, Addiction, Alzheimers Disease, Anxiety, Dementia, Depression, Psych Hospitalization(s), PTSD, Suicide Attempt, Suicidal Ideation Endocrine/Metabolic History: Reports: Hypothyroidism, Multinodular Thyroid, Obesity/BMI 30+, Other (See Below). 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 Hematologic History: Reports: Blood Transfusion(s), Other (See Below). Denies: Anemia Other Hematologic History: Blood transfusions for orthopedic surgeries. Immunologic History: Reports: None. Denies: AIDS, HIV, SLE Oncologic (Cancer) History: Reports: None. Denies: Basal Cell Carcinoma, Breast, Cervix, Colon, Hodgkin's Lymphoma, Leukemia, Lymphoma, Malignant Melanoma, Non-Hodgkin's Lymphoma, Ovarian, Squamous Cell Carcinoma, Uterine Dermatologic History: Reports: None. Denies: Eczema, Psoriasis - Infectious Disease History Infectious Disease History: Reports: Chicken Pox, Measles, Mumps. Denies: C- Difficile, Meningitis, Mononucleosis, MRSA, Novel Coronavirus, Pertussis (Whooping Cough), Rheumatic Fever, Rubella, Scarlet Fever, Shingles, TB, VRE - Past Surgical History Cardiovascular Surgical History: Reports: None. Denies: Varicose Respiratory Surgical History: Reports: None. Denies: Thoracentesis GI Surgical History: Reports: Colonoscopy, Polypectomy, Other (See Below). Denies: Appendectomy, Cholecystectomy, EGD, Hernia, Abdominal, Hernia, Inguinal, Hernia Repair/Other Other GI Surgeries/Procedures: Colonoscopy on 01/08/2020 with excision of tubular adenoma from the sigmoid region at that time as above. Female Surgical History: Reports: None. Denies: Breast Biopsy, Section, D&C, Salpingo-Oophorectomy, Tubal Ligation Endocrine Surgical History: Reports: Thyroid Biopsy, Thyroidectomy, Other (See Below) Other Endocrine Surgeries/Procedures: Left sided partial thyroidectomy secondary to multinodular goiter initially in about 2012 with subsequent repeat additional partial thyroidectomy in about 2013. Neurological Surgical History: Reports: C-Spine, Discectomy, Laminectomy, Spinal Fusion, Other (See Below). Denies: Lumbar Spine, Sacral Spine, Scoliosis, Thoracic Spine, Vertebroplasty Musculoskeletal Surgical History: Reports: Hip Replacement, Joint Replacement, Other (See Below). 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 Oncologic Surgical History: Reports: None. Denies: Biopsy of Breast Dermatological Surgical History: Reports: None. Denies: Plastic Surgical Reconstruction/Repair, Skin Biopsy - Past Imaging History Past Imaging History: Reports: Cardiac Echo (Normal echocardiogram on 06/01/2020 with ejection fraction of 55-60% with previous echocardiograms on 05/20/2018 and 05/07/2017.), CAT Scan (Negative CTA of the chest on 04/25/[address] of the neck on 01/15/2008.), Mammogram (Last on 06/21/2020), MRI (MRI of the C- spine on 06/19/2006.), Stress Testing (Negative Cardiolite stress test on 05/03/2017 with ejection fraction of 74%.), Ultrasound (Thyroid ultrasound on 01/06/2008, 05/23/2018, and 04/27/2017.), Venous Doppler (Negative venous Doppler studies of the right leg on 08/18/2013.) Social & Family History - Family History HEENT: Reports: None. Denies: Glaucoma, Macular Degeneration, Retinal Detachment Cardiac: Reports: Afib, CAD, Heart Failure, High Cholesterol, Hypertension, OK, Pacemaker, Other (See Below). Denies: Aneurysm, Arrhythmia, Blood Clots/VTE/DVT, PVD/COD, Syncope Other Cardiac Family History: Mother with OK in her 50s. Father with fatal OK in his 70s prior to planned pacemaker placement for unknown reason. Maternal grandfather and 4 maternal uncles with fatal MIs in their 60s to 70s. First cousin with atrial fibrillation. Mother with hypertension and hyperlipidemia. Respiratory: Reports: Asthma, Other (See Below). Denies: COPD, PE, Pneumothorax, Sleep Apnea Other Respiratory Family Hisory: Paternal grandmother with asthma. A sister with sleep apnea. GI: Reports: Cholelithiasis, Other (See Below). Denies: Celiac Disease, Colon Polyps, GERD, GI bleed, Inflammatory Bowel Disease, Irritable Bowel Syndrome, PUD Other GI Family History: Mother and sister with cholelithiasis. : Reports: None. Denies: Renal Calculus, Renal Disease/Insufficiency OBGYN: Reports: Dysfunctional uterine bleeding, Fibroids, Other (See Below). Denies: Endometriosis, Recurrent Spontaneous Other OBGYN Family History: Sister with fibroids and secondary dysfunctional uterine bleeding. Musculoskeletal: Reports: Arthritis, RA, Other (See Below). Denies: Gout, Osteoarthritis, Osteoporosis Other Musculoskeletal Family History: Father, sister, and paternal grandfather with rheumatoid arthritis. Neurological: Reports: None. Denies: Alzheimers Disease, Cerebral Aneurysms, CVA, Dementia, Migraines, MS, Parkinson's, Seizure, TIA Psychiatric: Reports: Anxiety, Depression, Other (See Below). Denies: Abuse, Victim of, ADD, Psych Hospitalization(s), Psychosis, PTSD, Suicide Attempt Other Psychiatric Family History: Sister with anxiety depression disorder. Endocrine/Metabolic: Reports: Hypothyroidism, Other (See Below). Denies: Diabetes, Gestational, Diabetes, Type I, Diabetes, type II, Diabetes Mellitus, Type 3c, IDDM Other Endocrine/Metabolic Family History: Father with hypothyroidism. Hematologic: Reports: None. Denies: Anemia, SLE Immunologic: Reports: None. Denies: AIDS, HIV, SLE Dermatologic: Reports: None. Denies: Eczema, Psoriasis Oncologic: Reports: Skin, Other (See Below) Other Oncologic Family History: Maternal aunt with unknown type of cancer. Mother with unknown type of skin cancer. - Tobacco Use Tobacco Use Status *Q: Never Tobacco User - Caffeine Use Caffeine Use: Reports: Soda Other Caffeine Use: 2 per week - Recreational Drug Use Recreational Drug Use: No - Living Situation & Occupation Living situation: Reports: (2010, no children), Alone Occupation: Employed ([employer]) ED ROS GENERAL - Review of Systems Review Of Systems: See Below Constitutional: Denies: Fever, Chills, Malaise, Diaphoresis, Weight Gain HEENT: Reports: No Symptoms Respiratory: Denies: Wheezing, Pleuritic Chest Pain, Cough, Sputum, Hemoptysis Cardiovascular: Reports: Dyspnea on Exertion, Lightheadedness, Palpitations, Other (healing incision from recent bypass surgery). Denies: Chest Pain, Claudication, Syncope GI/Abdominal: Denies: Abdominal Pain, Constipation, Diarrhea, Nausea, Vomiting : Reports: No Symptoms Musculoskeletal: Reports: Other (no acute changes from baseline) Neurological: Denies: Confusion, Headache, Trouble Speaking, Weakness, Change in Speech Psychiatric: Reports: No Symptoms ED EXAM, GENERAL - Physical Exam Exam: See Below Exam Limited By: No Limitations General Appearance: Alert, No Apparent Distress, Obese Eye Exam: Bilateral Eye: EOMI, PERRL Ears: Hearing Grossly Normal Nose: No: Nasal Deformity, Nasal Swelling, Nasal Drainage Throat/Mouth: Normal Lips, Normal Voice, No Airway Compromise Head: Atraumatic, Normocephalic Neck: Supple, Non-Tender, Full Range of Motion Respiratory/Chest: No Respiratory Distress, Lungs Clear, Normal Breath Sounds, No Accessory Muscle Use, Other (Healing chest incision from recent surgery) Cardiovascular: Tachycardia GI/Abdominal: Normal Bowel Sounds, Soft, Non-Tender, No Distention (Female) Exam: Deferred Rectal (Female) Exam: Deferred Back Exam: No: Muscle Spasm Extremities: Normal Capillary Refill, Other (bruising right leg/mild puffiness from recent bypass surgery) Neurological: Alert, Oriented, Normal Cognition, Normal Gait, No Motor/Sensory Deficits Psychiatric: Normal Affect, Normal Mood Skin Exam: Warm, Dry, Other (healing incisions from recent bypass surgery/angiogram as noted above) #1 Interpretation EKG Date: 12/05/20 Time: 01:00 Rhythm: A-Fib Rate (Beats/Min): 139 [place]: Normal P-Wave: Absent QRS: Normal ST-T: Other (no obvious acute ischemia noted) QT: Normal Comparison: Change From Previous EKG #2 Interpretation EKG Date: 12/05/20 Time: 01:29 Rhythm: A-Fib Rate (Beats/Min): 124 [place]: Normal P-Wave: Absent QRS: Normal ST-T: Other (no obvious acute ischemia noted, flattened t-wave throughout leads) Comparison: No Change Course - Vital Signs Last Recorded V/S: Last Vital Signs Temp 36.5 C 12/05/20 01:07 Pulse 110 H 12/05/20 02:10 Resp 16 12/05/20 02:10 BP 107/83 12/05/20 02:10 Pulse Ox 97 12/05/20 02:10 - Orders/Labs/Meds Labs: Laboratory Tests 12/05/20 12/05/20 12/05/20 Range/Units 01:04 01:12 01:12 WBC 10.5 H (4.0-10.2) K/uL RBC 3.98 (3.77-5.09) M/uL Hgb 12.0 D (11.7-15.5) g/dL Hct 37.1 (34.0-46.0) % MCV 93.2 (84.0-98.0) fL MCH 30.2 (28.2-33.3) pg MCHC 32.3 (31.7-36.0) g/dL RDW 14.1 (11.2-14.1) % Plt Count 463 H D (150-350) K/uL Neut % (Auto) 69.1 (45.0-80.0) % Lymph % (Auto) 19.4 (10.0-50.0) % [place] % (Auto) 7.7 (2.0-14.0) % Eos % (Auto) 3.5 (0.0-5.0) % Baso % (Auto) 0.3 (0.0-2.0) % Neut # (Auto) 7.28 H (1.40-7.00) K/uL Lymph # (Auto) 2.05 (0.50-3.50) K/uL [place] # (Auto) 0.81 (0.00-1.00) K/uL Eos # (Auto) 0.37 (0.00-0.50) K/uL Baso # (Auto) 0.03 (0.00-0.20) K/uL PT (9.5-12.0) SEC INR Sodium 137 (136-145) mmol/L Potassium 3.5 (3.5-5.1) mmol/L Chloride 100 (98-107) mmol/L Carbon Dioxide 25.5 (21.0-32.0) mmol/L BUN 20 H (7-18) mg/dL Creatinine 1.09 (0.51-1.17) mg/dL Est Cr Clr Drug Dosing 39.35 mL/min Estimated GFR (MDRD) 51 mL/min Glucose 157 H (70-99) mg/dL Calcium 8.6 (8.5-10.1) mg/dL Magnesium 1.7 L (1.8-2.4) mg/dL Total Bilirubin 0.4 (0.2-1.0) mg/dL AST 27 (15-37) U/L ALT 28 (12-78) U/L Alkaline Phosphatase 58 (46-116) IU/L Troponin I 0.030 (0.000-0.056) ng/mL Total Protein 7.0 (6.4-8.2) g/dL Albumin 2.8 L (3.4-5.0) g/dL TSH, Ultra Sensitive 16.900 H (0.358-3.740) mIU/mL Specimen Type Urinvoid Urine Color Yellow Urine Appearance Clear Urine pH 6.5 (5.0-9.0) Ur Specific [place] 1.010 (1.005-1.030) Urine Protein Negative (NEGATIVE) mg/dL Urine Glucose (UA) Negative (NEGATIVE) mg/dL Urine Ketones Negative (NEGATIVE) mg/dL Urine Occult Blood Negative (NEGATIVE) Urine Nitrite Negative (NEGATIVE) Urine Bilirubin Negative (NEGATIVE) Urine Urobilinogen 0.2 (0.2-1.0) E.U./dL Ur Leukocyte Esterase Negative (NEGATIVE) Urine RBC 0-5 /HPF Urine WBC Not seen /HPF Ur Epithelial Cells Occasional /LPF Amorphous Sediment Few (0/HPF) /HPF Urine Bacteria Moderate H (NONE TO FEW) /HPF Urine Mucus Occasional H (NEGATIVE) /LPF 12/05/20 Range/Units 01:12 WBC (4.0-10.2) K/uL RBC (3.77-5.09) M/uL Hgb (11.7-15.5) g/dL Hct (34.0-46.0) % MCV (84.0-98.0) fL MCH (28.2-33.3) pg MCHC (31.7-36.0) g/dL RDW (11.2-14.1) % Plt Count (150-350) K/uL Neut % (Auto) (45.0-80.0) % Lymph % (Auto) (10.0-50.0) % [place] % (Auto) (2.0-14.0) % Eos % (Auto) (0.0-5.0) % Baso % (Auto) (0.0-2.0) % Neut # (Auto) (1.40-7.00) K/uL Lymph # (Auto) (0.50-3.50) K/uL [place] # (Auto) (0.00-1.00) K/uL Eos # (Auto) (0.00-0.50) K/uL Baso # (Auto) (0.00-0.20) K/uL PT 20.8 H (9.5-12.0) SEC INR 2.1 Sodium (136-145) mmol/L Potassium (3.5-5.1) mmol/L Chloride (98-107) mmol/L Carbon Dioxide (21.0-32.0) mmol/L BUN (7-18) mg/dL Creatinine (0.51-1.17) mg/dL Est Cr Clr Drug Dosing mL/min Estimated GFR (MDRD) mL/min Glucose (70-99) mg/dL Calcium (8.5-10.1) mg/dL Magnesium (1.8-2.4) mg/dL Total Bilirubin (0.2-1.0) mg/dL AST (15-37) U/L ALT (12-78) U/L Alkaline Phosphatase (46-116) IU/L Troponin I (0.000-0.056) ng/mL Total Protein (6.4-8.2) g/dL Albumin (3.4-5.0) g/dL TSH, Ultra Sensitive (0.358-3.740) mIU/mL Specimen Type Urine Color Urine Appearance Urine pH (5.0-9.0) Ur Specific [place] (1.005-1.030) Urine Protein (NEGATIVE) mg/dL Urine Glucose (UA) (NEGATIVE) mg/dL Urine Ketones (NEGATIVE) mg/dL Urine Occult Blood (NEGATIVE) Urine Nitrite (NEGATIVE) Urine Bilirubin (NEGATIVE) Urine Urobilinogen (0.2-1.0) E.U./dL Ur Leukocyte Esterase (NEGATIVE) Urine RBC /HPF Urine WBC /HPF Ur Epithelial Cells /LPF Amorphous Sediment (0/HPF) /HPF Urine Bacteria (NONE TO FEW) /HPF Urine Mucus (NEGATIVE) /LPF Meds: Medications Discontinued Medications Generic Name Dose Route Start Last Admin Trade Name Freq PRN Reason Stop Dose Admin Diltiazem HCl 15 mg 12/05/20 01:10 12/05/20 01:13 Diltiazem 25 Mg/5 Ml Sdv IVPUSH 12/05/20 01:11 15 mg ONETIME ONE Administration Diltiazem HCl 10 mg 12/05/20 01:26 12/05/20 01:38 Diltiazem 25 Mg/5 Ml Sdv IVPUSH 12/05/20 01:27 10 mg ONETIME ONE Administration Diltiazem HCl 60 mg 12/05/20 02:32 12/05/20 02:39 Diltiazem Ir 60 Mg Tab PO 12/05/20 02:33 60 mg ONETIME ONE Administration Magnesium Sulfate/Dextrose 1 gm in 100 mls @ 100 mls/hr 12/05/20 01:45 12/05/20 01:38 Magnesium Sulfate In D5w 1 Gm/100 Ml IV 12/05/20 02:44 100 mls/hr NOW ONE Administration Diltiazem HCl 125 mg/ Sodium 125 mls @ 5 mls/hr 12/05/20 01:45 Chloride IV TITRATE CAROLYNE Protocol 5 MG/HR - Re-Assessments/Exams Free Text/Narrative Re-Assessment/Exam: 12/05/20 01:46 Chest xray unremarkable for acute process. Sternotomy wires present. No pneumonia/pneumothorax. EKG confirmed afib with RVR. Patient remained pain- free. Cardizem 15mg given, followed by additional 10mg. Rate improved. BP remained in decent range. 12/05/20 02:05 CBC/Chem/Troponin overall unremarkable. Mild bump in WBC likely reflects stress reaction. Mag low at 1.7. IV magnesium replacement ordered as that can be helpful when treating afib/RVR. Rate remains improved but is still running 110- 120s. Patient comfortable. Will initiate Cardizem drip per protocol for additional rate control. Call placed to [facility] and transfer arranged to their facility with from the ER as accepting MD. They will contact us when a bed is available. Patient will be transported to [facility] via EMS. Departure - Departure Time of Disposition: 02:30 Disposition: DC/Tfer to Acute Hospital 02 Reason for Transfer *Q: Other Condition: Good Clinical Impression: Atrial fibrillation with rapid ventricular response Referrals: Lolly Ruiz PA [Primary Care Provider] - Forms: ED Department Discharge Sepsis Event Note (ED) - Evaluation Sepsis Screening Result: No Definite Risk
[2020-12-05] MEDS ORDERED: Magnesium Sulfate/D5W 1 GM/100 ML BAG IV ONE (01:45)
[2020-12-05] MEDS ORDERED: Diltiazem 125 MG in Sodium Chloride 0.9% 100 ML IV SCH (01:45)
[2020-12-05 02:11] VITALS: BP 107/83; PULSE 110
[2020-12-05] MEDS ORDERED: Diltiazem IR 60 MG Tab PO ONE (02:32)
== END 2020-12-05 02:45 ==
LOC: LL.ED 00:59
DX: I48.91 Unspecified atrial fibrillation (principal); I13.0 Hypertensive heart and chronic kidney disease with heart failure and stage 1 through stage 4 chronic kidney disease, or unspecified chronic kidney disease; E11.22 Type 2 diabetes mellitus with diabetic chronic kidney disease; N18.9 Chronic kidney disease, unspecified; I50.9 Heart failure, unspecified; E03.9 Hypothyroidism, unspecified; Z79.01 Long term (current) use of anticoagulants; Z79.899 Other long term (current) drug therapy
CPT/HCPCS: 36415; 71045; 80053; 81001; 83735; 84443; 84484; 85025; 85610; 93005; 96365; 96375; 99285; A9270; J3475; J3490; 93010; 99284

== ENCOUNTER 2020-12-23 13:20 | Inpatient (IN) | payer BC ==
[2020-12-23] MEDS ORDERED: Famotidine 20 MG/2 ML SDV IVPUSH ONE (13:28)
--- NOTE | 2020-12-23 13:28 | EDM.PDOC ---
ED HPI GENERAL MEDICAL PROBLEM - General Chief Complaint: Chest Pain Stated Complaint: SOB, CP chronic post CABG Time Seen by Provider: 12/23/20 13:20 Source of Information: Reports: Patient, Family (Sister, Val), Old Records ([facility] chart/EMR), Other ([facility] EMR) History Limitations: Reports: No Limitations - History of Present Illness INITIAL COMMENTS - FREE TEXT/NARRATIVE: The patient was brought to the emergency room via private automobile by her sister for evaluation of progressive dyspnea since her three-vessel CABG on 11/26/2020. She did see her donor technician at [facility] in [place] on 12/17 with no echocardiogram performed at that time. Her EKG during that visit did show some evidence of diffuse probable persistent mild cardiac ischemia particularly in the inferolateral regions. The patient has been having stable 45/10 $0.50 piece pressure sensation in the left chest region since surgery with no change in this chest pressure at this time. The patient denies any other chest pain/pressure, heart flutter, dizziness, orthostasis, diaphoresis, paresthesias, recent decreased exercise tolerance, or any other anginal-type symptoms, although overall somewhat decreased exercise tolerance secondary to her recent surgery with additional persistent moderate orthopnea. No recent history of abdominal pain, heartburn, nausea, diarrhea, melena, gross hematochezia, or any food intolerance, including fatty foods, etc. with normal bowel movement this morning. No history of gross hematuria, colic, or other UTI symptoms. The patient also denies any recent fever, cough, wheezing, etc.. Her symptoms have persisted and progressed compliance with Lasix therapy with progressive symptoms since cardiology evaluation on 12/17 as above. Onset: Gradual Onset Date: 12/17/20 Duration: Constant, Getting Worse Location: Reports: Chest (As above). Denies: Head, Face, Neck, Abdomen, Back, Pelvis, Upper Extremity, Left, Upper Extremity, Right, Lower Extremity, Left, Lower Extremity, Right, Radiates to Quality: Reports: Pressure, Same as Previous Episode Improves with: Reports: None Worsens with: Reports: None Context: Reports: Other. Denies: Sick Contact, Trauma Associated Symptoms: Reports: Chest Pain, Shortness of Breath, Weakness (Slowly improving nonspecific generalized). Denies: Confusion, Cough, Diaphoresis, Fever/Chills, Headaches, Loss of Appetite, Malaise, Nausea/Vomiting, Rash, Seizure, Syncope Treatments PLASTIC SURGERY ASSISTANT: Reports: Other (see below) (None) Left Chest Pain Score (Numeric/FACES): 4 - Related Data Allergies Allergy/AdvReac Type Severity Reaction Status Date / Time No Known Allergies Allergy Verified 12/23/20 13:22 Home Meds: Home Meds Metoprolol Tartrate 25 mg PO Q12HR 09/14/20 [History] Amiodarone [Cordarone] 200 mg PO DAILY 12/23/20 [History] Apixaban [Eliquis] 5 mg PO BID 12/23/20 [History] Ascorbate Calcium [Vitamin C] 500 mg PO DAILY 12/23/20 [History] Aspirin 81 mg PO DAILY 12/23/20 [History] B12/Levomefolate Calcium/B-6 [Foltx Tablet] 1 each PO DAILY 12/23/20 [History] Calcium Citrate/Vitamin D3 [Calcium Cit-Vit D 250-200] 2 each PO DAILY 12/23/20 [History] Furosemide [Lasix] 20 mg PO DAILY 12/23/20 [History] Levothyroxine 150 mcg PO ACBREAKFAST 12/23/20 [History] Magnesium Chloride [Mag Delay] 64 mg PO DAILY 12/23/20 [History] Pantoprazole Sodium [Protonix] 40 mg PO BEDTIME 12/23/20 [History] Potassium Chloride [Klor-Con M20] 20 meq PO DAILY 12/23/20 [History] Sennosides/Docusate Sodium [Senna-S] 1 each PO DAILY 12/23/20 [History] atorvaSTATin [Lipitor] 80 mg PO BEDTIME 12/23/20 [History] oxyCODONE 5 mg PO Q4H PRN 12/23/20 [History] Past Medical History HEENT History: Reports: Impaired Vision. Denies: Allergic Rhinitis, Cataract, Glaucoma, Hard of Hearing, Macular Degeneration, Otitis Media, Retinal Detachment Other HEENT History: The patient wears glasses. Cardiovascular History: Reports: Afib, Bypass, CAD, Cardiomyopathy, Heart F ailure, High Cholesterol, Hypertension, OR, Other (See Below). Denies: Aneurysm, Arrhythmia, Blood Clots/VTE/DVT, Heart Murmur, PVD, Syncope Other Cardiovascular History: Non-STEMI on 11/24/2020 requiring bypass surgery as below. Mild hyperlipidemia currently under therapy. Recurrent atrial fibrillation/flutter since 04/25/2017 with additional episode on 04/25/2018 with evaluations in this facility on those occasions. In addition, note atrial fibrillation episode on 12/05/2020 with previous CABG therapy as below and subsequent transfer to [facility]. Occasional bradycardia. History of D-dimer elevation in April 2017 with negative CTA of the chest as below. History of borderline intermittent CHF likely secondary to atrial fibrillation with rapid ventricular response. Respiratory History: Reports: Bronchitis, Recurrent, COPD, Intubation, Previous, Pulmonary Fibrosis, Other (See Below). Denies: Asthma, Intubation, Difficult, PE, Pneumonia, Recurrent, Pneumothorax, Sleep Apnea, TB Other Respiratory History: Multiple probable benign pulmonary nodules of the left lower lobe by CT calcium scoring evaluation on 11/23/2020. Borderline COPD and pulmonary fibrosis per chest x-ray with no current medical therapy. Gastrointestinal History: Reports: Colon Polyp, Diverticulosis, GERD, Other (See Below). Denies: Bowel Obstruction, Celiac Disease, Cholelithiasis, Chronic Constipation, Chronic Diarrhea, Cirrhosis, Fecal Incontinence, Gastritis (You have constipation issues), GI Bleed, Hepatitis, Hiatal Hernia, Inflammatory Bowel Disease, Irritable Bowel Syndrome, Jaundice, Pancreatitis, PUD Other Gastrointestinal History: Tubular adenoma removed from the sigmoid colon on 01/08/2020 with mild sigmoid diverticulosis noted at that time. Dysphagia secondary to C-spine fixation. Genitourinary History: Reports: None. Denies: Acute Renal Failure, Chronic Renal Insuffiency, Renal Calculus, Retention, Urinary, STD, Urinary Incontinence, UTI, Recurrent MARKETING COMMUNICATIONS LEADER History: Reports: None. Denies: Dysfunctional Uterine Bleeding, Endometriosis, Fibroids, : 0 Para: 0 LMP (Approximate): Other (See Below) Other MARKETING COMMUNICATIONS LEADER History: Menopause at about age 56. Musculoskeletal History: Reports: Arthritis, Back Pain, Chronic, Fracture, Neck Pain, Chronic, Osteoarthritis, Other (See Below). Denies: Gout, Osteoporosis, RA, SLE Other Musculoskeletal History: History of right-sided C6-C7 disc herniation versus questionable possible cervical fracture secondary to a fall in 2005 with subsequent spinal fusion as below. 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 Minimal scoliosis. Current cane use. Neurological History: Reports: None. Denies: Alzheimers Disease, Cerebral Aneurysms, Concussion, CVA, Head Trauma, Migraines, MS, Neuropathy, Peripheral, Parkinson's, Seizure, TIA, Vertigo Psychiatric History: Reports: None. Denies: Abuse, Victim of, ADD, ADHD, Add iction, Anxiety, Dementia, Depression, Psych Hospitalization(s), Psychosis, PTSD, Suicide Attempt, Suicidal Ideation Endocrine/Metabolic History: Reports: Hypothyroidism, Multinodular Thyroid, Obesity/BMI 30+, Other (See Below). Denies: Diabetes, Type I, Diabetes, Type II, Diabetes Mellitus, Type 3c, IDDM Other Endocrine/Metabolic History: Hyperglycemia without true diabetes mellitus. 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 Hematologic History: Reports: Blood Transfusion(s), Other (See Below). Denies: Anemia, Iron Deficiency (Signout no blood transfusions) Other Hematologic History: Blood transfusions for orthopedic surgeries. Immunologic History: Reports: None. Denies: AIDS, HIV, SLE Oncologic (Cancer) History: Reports: None. Denies: Basal Cell Carcinoma, Breast, Cervix, Colon, Hodgkin's Lymphoma, Leukemia, Lung, Lymphoma, Non- Hodgkin's Lymphoma, Ovarian, Squamous Cell Carcinoma, Uterine Dermatologic History: Reports: None. Denies: Eczema, Psoriasis - Infectious Disease History Infectious Disease History: Reports: Chicken Pox, Measles, Mumps. Denies: C- Difficile, Meningitis, Mononucleosis, MRSA, Novel Coronavirus (Completely immunized with Moderna with last immunization on 09/30/2020.), Pertussis (Whooping Cough), Rheumatic Fever, Rubella, Scarlet Fever, Shingles, TB, VRE - Past Surgical History Head Surgeries/Procedures: Reports: None HEENT Surgical History: Reports: Oral Surgery, Other (See Below). Denies: Adenoidectomy, Cataract Surgery, Eye Surgery, Laser Surgery, LASIK, Myringotomy w Tube(s), Naso-Sinus Surgery, Tonsillectomy Other HEENT Surgeries/Procedures: [place] teeth extraction x4. Cardiovascular Surgical History: Reports: Coronary Artery Bypass, Other (See Below). Denies: Coronary Artery Stent, Pacer, Percutaneous Transluminal Angioplasty, Varicose Other Cardiovascular Surgeries/Procedures: Three-vessel CABG on 11/27/2019 with multivessel coronary artery disease including 90% and 70% stenoses in the mid LAD, 90% stenosis of the RCA, and 50% stenosis x2 of the circumflex coronary artery. Respiratory Surgical History: Reports: None. Denies: Thoracentesis GI Surgical History: Reports: Colonoscopy, Polypectomy, Other (See Below). Denies: Appendectomy, Cholecystectomy, EGD, Hernia, Abdominal, Hernia, Inguinal, Hernia Repair/Other Other GI Surgeries/Procedures: Colonoscopy on 01/08/2020 with excision of tubular adenoma from the sigmoid region at that time as above. Female Surgical History: Reports: None. Denies: Breast Biopsy, Section, D&C, Hysterectomy, Oophorectomy, Salpingo-Oophorectomy, Tubal Ligation Endocrine Surgical History: Reports: Thyroid Biopsy, Thyroidectomy, Other (See Below) Other Endocrine Surgeries/Procedures: Left sided partial thyroidectomy secondary to multinodular goiter initially in about 2012 with subsequent repeat additional partial thyroidectomy in about 2013. Neurological Surgical History: Reports: C-Spine, Discectomy, Laminectomy, Spinal Fusion, Other (See Below) Other Neurological Surgeries/Procedures: C6-7 laminectomy secondary to right- sided herniation with additional C4-C7 spinal fixation in 2006. 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 Oncologic Surgical History: Reports: None Dermatological Surgical History: Reports: None - Past Imaging History Past Imaging History: Reports: Angiography (Positive heart catheterization on 11/25/2020 with results as above.), Cardiac Echo (Last echocardiogram on 10/04/2020 with ejection fraction of 55-60% with previous study on 06/01/2020 with ejection fraction of 55-60% and previous evaluations on 05/20/2018 and 05/07/2017.), Carotid US (Negative on 11/25/2020.), CAT Scan (CT of the chest for calcium scoring on 11/23/2020. Negative CTA of the chest on 04/25/[address] of the neck on 01/15/2008.), Holter Monitor (2-week study on 11/27/2020.), Mammogram (Last on 06/21/2020), MRI (MRI of the C-spine on 06/19/2006.), PFT (1bedside.), Stress Testing (Positive Cardiolite stress test on 11/23/2020 with heart catheterization results as above. Previous negative Cardiolite stress test on 05/03/2017 with ejection fraction of 74%.), Ultrasound (Thyroid ultrasound on 01/06/2008, 05/23/2018, and 04/27/2017.), Venous Doppler (Negative venous Doppler studies of the legs bilaterally on 09/14/2020 with additional limited mapping evaluation on 11/25/2020. Negative venous Doppler studies of the right leg on 08/18/2013.) Social & Family History - Family History HEENT: Reports: None. Denies: Glaucoma, Macular Degeneration, Retinal Detachment Cardiac: Reports: Afib, Arrhythmia, CAD, Heart Failure, High Cholesterol, Hypertension, OR, Pacemaker, Other (See Below). Denies: Aneurysm, Blood Clots/VTE/DVT, Heart Murmur, PVD/COD, Syncope Other Cardiac Family History: Mother with OR in her 50s. Father with fatal OR in his 70s prior to planned pacemaker placement for unknown reason. Maternal grandfather and 4 maternal uncles with fatal MIs in their 60s to 70s. First cousin with atrial fibrillation. Mother with hypertension and hyperlipidemia. Respiratory: Reports: Asthma, Sleep Apnea, Other (See Below). Denies: COPD, PE, Pneumothorax Other Respiratory Family Hisory: Paternal grandmother with asthma. A sister with sleep apnea. GI: Reports: Cholelithiasis, Other (See Below). Denies: Bowel Obstruction, Celiac Disease, Colon Polyps, GERD, GI bleed, Hepatitis, Inflammatory Bowel Disease, Irritable Bowel Syndrome, Pancreatitis, PUD Other GI Family History: Mother and sister with cholelithiasis. : Reports: None. Denies: Renal Calculus, Renal Disease/Insufficiency OBGYN: Reports: Dysfunctional uterine bleeding, Fibroids, Other (See Below). Denies: Endometriosis, Recurrent Spontaneous Other OBGYN Family History: Sister with fibroids and secondary dysfunctional uterine bleeding. Musculoskeletal: Reports: Arthritis, Osteoarthritis, RA, Other (See Below). Denies: Gout, SLE Other Musculoskeletal Family History: Father, sister, and paternal grandfather with rheumatoid arthritis. Neurological: Reports: None. Denies: Alzheimers Disease, Cerebral Aneurysms, CVA, Dementia, Migraines, MS, Parkinson's, Seizure, TIA Psychiatric: Reports: Anxiety, Depression, Other (See Below). Denies: Abuse, Victim of, ADD, ADHD, Psych Hospitalization(s), PTSD, Suicide Attempt Other Psychiatric Family History: Sister with anxiety depression disorder. Endocrine/Metabolic: Reports: Hypothyroidism, Other (See Below). Denies: Diabetes, Gestational, Diabetes, Type I, Diabetes, type II, Diabetes Mellitus, Type 3c, IDDM Other Endocrine/Metabolic Family History: Father with hypothyroidism. Hematologic: Reports: None. Denies: SLE Immunologic: Reports: None. Denies: AIDS, HIV, SLE Dermatologic: Reports: None. Denies: Eczema, Psoriasis Oncologic: Reports: Skin, Other (See Below) Other Oncologic Family History: Maternal aunt with unknown type of cancer. Mother with unknown type of skin cancer. - Tobacco Use Tobacco Use Status *Q: Never Tobacco User Tobacco Use Within Last Twelve Months: No Used Tobacco, but Quit: No Smoking Cessation Information Provided To Patient: No Second Hand Smoke Exposure: No Second Hand Smoke Education Provided: No - Caffeine Use Caffeine Use: Reports: Soda (2 sodas per week). Denies: Coffee, Energy Drinks, Tea - Alcohol Use Alcohol Use History: No Days Per Week of Alcohol Use: 0 Number of Drinks Per Day: 0 Number of Drinks Per Day Comment: No previous DWIs, problems with alcohol abuse, etc. Total Drinks Per Week: 0 Alcohol Use in Last Twelve Months: No - Recreational Drug Use Recreational Drug Use: No Drug Use in Last 12 Months: No Recreational Drug Type: Denies: Amphetamines (Speed), Cocaine, Heroin, Inhalants (Glues, Solvents, Aerosols), LSD (Acid), Marijuana/Hashish, Methamphetamine, Morphine, Oxycodone - Living Situation & Occupation Living situation: Reports: (2010, no children), Alone (Although her sister, Val, is staying with her at this time secondary to recent CABG), Other (Sikhism) Occupation: Employed ([employer], although currently on work excuse secondary to her recent CABG. She is considering possible ret irement.) ED ROS GENERAL - Review of Systems Review Of Systems: Comprehensive ROS is negative, except as noted in HPI. ED EXAM, GENERAL - Physical Exam Exam: See Below Exam Limited By: No Limitations General Appearance: Alert, WD/WN, No Apparent Distress Eye Exam: Bilateral Eye: EOMI, Normal Inspection (The patient is wearing glasses. No vertigo or nystagmus), PERRL Ears: Normal External Exam, Normal Canal, Hearing Grossly Normal, Normal TMs Nose: Normal Inspection, Normal Mucosa, No Blood Throat/Mouth: Normal Inspection, Normal Lips, Normal Teeth (Occasional missing teeth), Normal Gums, Normal Oropharynx, Normal Voice, No Airway Compromise, Other (Small torus palatinum). No: Dysphagia, Inflammation, Perioral Cyanosis Head: Atraumatic, Normocephalic. No: Facial Swelling, Facial Tenderness, Sinus Tenderness Neck: Normal Inspection, Supple, Non-Tender, Full Range of Motion. No: Carotid Bruit, Lymphadenopathy (L), Lymphadenopathy (R), Thyromegaly Respiratory/Chest: No Respiratory Distress, No Accessory Muscle Use, Decreased Breath Sounds (Left lower lobe), Rales (Moderate bilateral mostly in the bases). No: Rhonchi, Wheezing, Pleural Rub, Retractions Cardiovascular: Normal Peripheral Pulses, Regular Rate, Rhythm, No Gallop, No JVD, No Murmur, No Rub. No: No Edema (Dependent edema as below), Gallop/S3, Gallop/S4, Friction Rub Peripheral Pulses: 2+: Radial (L), Radial (R), Dorsalis Pedis (L), Dorsalis Pedis (R) GI/Abdominal: Normal Bowel Sounds, Soft, Non-Tender, No Organomegaly, No Distention, No Abnormal Bruit, No Mass, Other (Obese). No: Pelvis Stable (Female) Exam: Deferred Rectal (Female) Exam: Deferred Back Exam: Full Range of Motion, Other (Mild scoliosis). No: CVA Tenderness (L), CVA Tenderness (R), Muscle Spasm, Paraspinal Tenderness, Vertebral Tenderness Extremities: Normal Range of Motion, Non-Tender, Normal Capillary Refill, Pedal Edema (+1+2 bilateral pedal/pretibial edema), Other (Knee-high VICENTE hose). No: Prudence's Sign Neurological: Alert, Oriented, CN II-XII Intact, Normal Cognition, Normal Gait, Normal Reflexes (Negative Babinski's), No Motor/Sensory Deficits Psychiatric: Normal Affect, Normal Mood Skin Exam: Normal Color, No Rash, Ecchymosis (Occasional forearms bilaterally secondary to previous blood draws, etc.), Wound/Incision (Sternal and abdominal incisions are intact, clean, dry with no evidence of local infection). No: Diaphoretic, Petechiae Lymphatic: No Adenopathy #1 Interpretation EKG Date: 12/23/20 Time: 13:28 Rhythm: NSR (With resolution of previous atrial fibrillation with rapid ventricular response in the 130s at 1:29 AM) Rate (Beats/Min): 66 [place]: Normal (Neutral) P-Wave: Present QRS: Normal (0.08 seconds) ST-T: Other (Diffuse T wave inversions in leads II, III, aVF, and V1 through V6 likely stable from previous EKG report at [facility] on 12/17/2020, although actual tracing not available at this time. Increased prominence of T wave inversion since last EKG in this facility at 1:29 AM on 12/05/2020) QT: Normal NV/PQ Interval: 0.19 seconds. Comparison: Change From Previous EKG (As above) EKG Interpretation Comments: 1. Diffuse coronary ischemia 2. Atrial fibrillationresolved Course - Vital Signs Last Recorded V/S: Last Vital Signs Temp 37.0 C 12/23/20 13:22 Pulse 66 12/23/20 13:30 Resp 23 H 12/23/20 13:30 BP 134/76 12/23/20 13:30 Pulse Ox 100 12/23/20 13:30 Vital Signs - 24 hr 12/23/20 12/23/20 13:22 13:30 Temperature [ 37.0 C Temporal] Pulse, 67 66 Peripheral [ Pulse Oximetry] Respiratory 20 23 H Rate Blood Pressure 142/69 H 134/76 [Right Upper Arm] O2 Sat by Pulse 100 100 Oximetry - Orders/Labs/Meds Orders: Active Orders 24 hr Category Date Time Status Cardiac Monitoring [RC] . DIRECTED Care 12/23/20 13:28 Active EKG Documentation Completion [RC] ASDIRECTED Care 12/23/20 13:28 Active Oxygen Therapy, ED [RC] PRN Care 12/23/20 13:28 Active Peripheral IV Care [RC] . DIRECTED Care 12/23/20 13:28 Active Pulse Oximetry [RC] CONTINUOUS Care 12/23/20 13:28 Active Up With Assistance [RC] PFP Care 12/23/20 13:28 Active Vital Signs [RC] PFP Care 12/23/20 13:28 Active Nothing per Oral Now Diet [DIET] Diet 12/23/20 Breakfast Active Chest 1V Frontal [CR] Stat Exams 12/23/20 13:28 Taken Chest PE [Ang Chest] [CT] Stat Exams 12/23/20 14:30 Taken Venous Doppler Lwr Ext Bi [US] Urgent Exams 12/23/20 14:21 Ordered Sodium Chloride 0.9% [Saline Flush] Med 12/23/20 13:28 Active 10 ml FLUSH ASDIRECTED PRN Obtain Past Medical Record [OM.PC] Urgent Oth 12/23/20 13:28 Active Peripheral IV Insertion Adult [OM.PC] Stat Oth 12/23/20 13:28 Ordered Resuscitation Status Stat Resus Stat 12/23/20 13:28 Ordered Medication Orders Sodium Chloride (Sodium Chloride 0.9% 10 Ml Syringe) 10 ml FLUSH ASDIRECTED PRN PRN Reason: Keep Vein Open Labs: Laboratory Tests 12/23/20 12/23/20 12/23/20 Range/Units 13:45 13:45 13:45 WBC 6.9 (4.0-10.2) K/uL RBC 4.03 (3.77-5.09) M/uL Hgb 12.5 (11.7-15.5) g/dL Hct 38.7 (34.0-46.0) % MCV 96.0 (84.0-98.0) fL MCH 31.0 (28.2-33.3) pg MCHC 32.3 (31.7-36.0) g/dL RDW 15.0 H (11.2-14.1) % Plt Count 297 D (150-350) K/uL Neut % (Auto) 66.4 (45.0-80.0) % Lymph % (Auto) 19.5 (10.0-50.0) % [place] % (Auto) 9.6 (2.0-14.0) % Eos % (Auto) 4.2 (0.0-5.0) % Baso % (Auto) 0.3 (0.0-2.0) % Neut # (Auto) 4.59 (1.40-7.00) K/uL Lymph # (Auto) 1.35 (0.50-3.50) K/uL [place] # (Auto) 0.66 (0.00-1.00) K/uL Eos # (Auto) 0.29 (0.00-0.50) K/uL Baso # (Auto) 0.02 (0.00-0.20) K/uL INR 1.2 D-Dimer, Quantitative 1160 H (0-400) ng/mL Sodium (136-145) mmol/L Potassium (3.5-5.1) mmol/L Chloride (98-107) mmol/L Carbon Dioxide (21.0-32.0) mmol/L BUN (7-18) mg/dL Creatinine (0.51-1.17) mg/dL Est Cr Clr Drug Dosing Estimated GFR (MDRD) mL/min Glucose (70-99) mg/dL Lactic Acid (0.4-2.0) mmol/L Uric Acid (2.6-7.2) mg/dL Calcium (8.5-10.1) mg/dL Magnesium (1.8-2.4) mg/dL Total Bilirubin (0.2-1.0) mg/dL AST (15-37) U/L ALT (12-78) U/L Alkaline Phosphatase (46-116) IU/L Troponin I (0.000-0.056) ng/mL NT-Pro-B Natriuret Pep (0-125) pg/mL Total Protein (6.4-8.2) g/dL Albumin (3.4-5.0) g/dL TSH, Ultra Sensitive (0.358-3.740) mIU/mL 12/23/20 12/23/20 Range/Units 13:45 13:45 WBC (4.0-10.2) K/uL RBC (3.77-5.09) M/uL Hgb (11.7-15.5) g/dL Hct (34.0-46.0) % MCV (84.0-98.0) fL MCH (28.2-33.3) pg MCHC (31.7-36.0) g/dL RDW (11.2-14.1) % Plt Count (150-350) K/uL Neut % (Auto) (45.0-80.0) % Lymph % (Auto) (10.0-50.0) % [place] % (Auto) (2.0-14.0) % Eos % (Auto) (0.0-5.0) % Baso % (Auto) (0.0-2.0) % Neut # (Auto) (1.40-7.00) K/uL Lymph # (Auto) (0.50-3.50) K/uL [place] # (Auto) (0.00-1.00) K/uL Eos # (Auto) (0.00-0.50) K/uL Baso # (Auto) (0.00-0.20) K/uL INR D-Dimer, Quantitative (0-400) ng/mL Sodium 142 (136-145) mmol/L Potassium 4.2 (3.5-5.1) mmol/L Chloride 106 (98-107) mmol/L Carbon Dioxide 28.0 (21.0-32.0) mmol/L BUN 15 (7-18) mg/dL Creatinine 1.10 (0.51-1.17) mg/dL Est Cr Clr Drug Dosing TNP Estimated GFR (MDRD) 50 mL/min Glucose 120 H (70-99) mg/dL Lactic Acid 1.5 (0.4-2.0) mmol/L Uric Acid 5.4 (2.6-7.2) mg/dL Calcium 8.8 (8.5-10.1) mg/dL Magnesium 2.1 (1.8-2.4) mg/dL Total Bilirubin 0.4 (0.2-1.0) mg/dL AST 12 L (15-37) U/L ALT 26 (12-78) U/L Alkaline Phosphatase 70 (46-116) IU/L Troponin I 0.000 (0.000-0.056) ng/mL NT-Pro-B Natriuret Pep 1678 H (0-125) pg/mL Total Protein 7.7 (6.4-8.2) g/dL Albumin 3.5 (3.4-5.0) g/dL TSH, Ultra Sensitive 15.036 H (0.358-3.740) mIU/mL Meds: Medications Generic Name Dose Route Start Last Admin Trade Name Freq PRN Reason Stop Dose Admin Sodium Chloride 10 ml 12/23/20 13:28 Sodium Chloride 0.9% 10 Ml Syringe FLUSH ASDIRECTED PRN Keep Vein Open Discontinued Medications Generic Name Dose Route Start Last Admin Trade Name Carlos PRN Reason Stop Dose Admin Famotidine 40 mg 12/23/20 13:28 12/23/20 14:14 Famotidine 20 Mg/2 Ml Sdv IVPUSH 12/23/20 13:29 40 mg ONETIME ONE Administration Furosemide 60 mg 12/23/20 14:30 Furosemide 40 Mg/4 Ml Vial IVPUSH 12/23/20 14:31 NOW ONE Iopamidol 100 ml 12/23/20 14:31 12/23/20 15:17 Iopamidol 755 Mg/Ml 100 Ml Bottle IVPUSH 12/23/20 14:32 100 ml ONETIME STA Administration - Radiology Interpretation Free Text/Narrative:: monitor and storage bin tender with heart rate in the 60s with no ectopy or arrhythmia Chest x-ray, portable, shows evidence of borderline cardiomegaly with mild to moderate CHF, including a mild to moderate left pleural effusion. No pulmonary infiltrates, pneumothorax, etc. although some borderline pulmonary obstructive disease noted. Mild osteoarthritic changes and mild scoliosis also present. Departure - Departure Time of Disposition: 15:35 Disposition: Admitted As Inpatient 67 Condition: Fair Clinical Impression: D-dimer, elevated, Peptic reflux disease, Pulmonary nodules CHF (congestive heart failure) Qualifiers: Heart failure type: systolic Heart failure chronicity: acute on chronic Qualified Code(s): I50.23 - Acute on chronic systolic (congestive) heart failure Hyperlipidemia Qualifiers: Hyperlipidemia type: unspecified Qualified Code(s): E78.5 - Hyperlipidemia, unspecified Osteoarthritis Qualifiers: Osteoarthritis location: multiple joints Osteoarthritis type: primary Qualified Code(s): M89.49 - Other hypertrophic osteoarthropathy, multiple sites Hypothyroidism Qualifiers: Hypothyroidism type: postoperative Qualified Code(s): E89.0 - Postprocedural hypothyroidism Hypertension Qualifiers: Hypertension type: essential hypertension Qualified Code(s): I10 - Essential (primary) hypertension Coronary artery disease Qualifiers: Coronary Disease-Associated Artery/Lesion type: bypass graft [place] vs. transplanted heart: [place] heart Associated angina: without angina Qualified Code(s): I25.810 - Atherosclerosis of coronary artery bypass graft(s) without angina pectoris COPD (chronic obstructive pulmonary disease) Qualifiers: COPD type: emphysema Emphysema type: panlobular Qualified Code(s): J43.1 - Panlobular emphysema Sepsis Event Note (ED) - Evaluation Sepsis Screening Result: No Definite Risk - Focused Exam Vital Signs: Vital Signs Temp Pulse Resp BP Pulse Ox 12/23/20 13:30 66 23 H 134/76 100 12/23/20 13:22 37.0 C 67 20 142/69 H 100 - Problem List & Annotations (1) CHF (congestive heart failure) SNOMED Code(s): 28984433 Code(s): I50.9 - HEART FAILURE, UNSPECIFIED Status: Acute Priority: High Current Visit: Yes Annotation/Comment:: Various therapeutic options were discussed with the patient and her sister with the patient preferring to stay in this facility. High-dose IV Lasix initiated in the emergency room. Note recent echocardiogram as above. Further medication adjustment during this hospitalization depending on her clinical course. Qualifiers: Heart failure type: systolic Heart failure chronicity: acute on chronic Qualified Code(s): I50.23 - Acute on chronic systolic (congestive) heart failure (2) D-dimer, elevated SNOMED Code(s): 511252429 Code(s): R79.89 - OTHER SPECIFIED ABNORMAL FINDINGS OF BLOOD CHEMISTRY Status: Chronic Priority: Medium Current Visit: Yes Annotation/Comment:: Note long history of D-dimer elevation with previous negative work-up as above. Secondary to progressive dyspnea, moderate D-dimer elevation, recent CABG, etc. CT of the chest and venous Doppler studies of the lower extremities have been ordered with results pending at this time. Note current Eliquis therapy secondary to her recurrent atrial fibrillation. No direct clinical evidence of DVT or PE. (3) Coronary artery disease SNOMED Code(s): 64302903 Code(s): I25.10 - ATHSCL HEART DISEASE OF [place] CORONARY ARTERY W/O ANG PCTRS Status: Chronic Priority: Medium Current Visit: Yes Onset Date: ~11/24/20 Annotation/Comment:: Note non-STEMI on 11/24/2020 with three-vessel CABG on 11/26/2020. Mostly postoperative chest wall pain at this time, although initiate standard rule out OR orders. Cardiology consultation depending on her clinical course. Diffuse ischemic changes by EKG today similar to those findings at time of her last cardiology consultation at [facility] on 12/17/2020. Qualifiers: Coronary Disease-Associated Artery/Lesion type: bypass graft [place] vs. transplanted heart: [place] heart Associated angina: without angina Qualified Code(s): I25.810 - Atherosclerosis of coronary artery bypass graft(s) without angina pectoris (4) Hypothyroidism SNOMED Code(s): 71705883 Code(s): E03.9 - HYPOTHYROIDISM, UNSPECIFIED Status: Chronic Current Visit: Yes Annotation/Comment:: Note status post partial thyroidectomy's x2 as above. TSH elevated today possibly secondary to current amiodarone therapy. Her Synthroid supplementation was apparently increased 1 week ago. Continue repeat TSH in about 2 weeks. Qualifiers: Hypothyroidism type: postoperative Qualified Code(s): E89.0 - Postprocedural hypothyroidism (5) Hypertension SNOMED Code(s): 74168101 Code(s): I10 - ESSENTIAL (PRIMARY) HYPERTENSION Status: Chronic Priority: Medium Current Visit: Yes Annotation/Comment:: Stable in the emergency room. Continue to observe closely during this hospitalization and by her regular providers after discharge. Qualifiers: Hypertension type: essential hypertension Qualified Code(s): I10 - Essential (primary) hypertension (6) Hyperlipidemia SNOMED Code(s): 06599155 Code(s): E78.5 - HYPERLIPIDEMIA, UNSPECIFIED Status: Chronic Priority: Medium Current Visit: Yes Annotation/Comment:: Note obesity with weight loss in moderation advisable. Note recently initiated Lipitor therapy secondary to her recent non-STEMI. Close follow-up by regular provider. Qualifiers: Hyperlipidemia type: unspecified Qualified Code(s): E78.5 - Hyperlipidemia, unspecified (7) Peptic reflux disease SNOMED Code(s): 127571658 Code(s): K21.9 - GASTRO-ESOPHAGEAL REFLUX DISEASE WITHOUT ESOPHAGITIS Status: Chronic Priority: Medium Current Visit: Yes Annotation/Comment:: High-dose IV Pepcid given in the emergency room as GI prophylaxis. Consider additional EGD on an outpatient basis depending on her clinical course once her current cardiac symptoms have stabilized. (8) Osteoarthritis SNOMED Code(s): 443139758 Code(s): M19.90 - UNSPECIFIED OSTEOARTHRITIS, UNSPECIFIED SITE Status: Chronic Priority: Medium Current Visit: Yes Annotation/Comment:: Stable by history with current cane use. Qualifiers: Osteoarthritis location: multiple joints Osteoarthritis type: primary Qualified Code(s): M89.49 - Other hypertrophic osteoarthropathy, multiple sites (9) COPD (chronic obstructive pulmonary disease) SNOMED Code(s): 52980505 Code(s): J44.9 - CHRONIC OBSTRUCTIVE PULMONARY DISEASE, UNSPECIFIED Status: Chronic Current Visit: Yes Annotation/Comment:: No recent fever or bronchitic type symptoms. Previous negative COVID-19 screen at [facility] in [place] with additional patient being completely immunized with Moderna. Note previous bedside PFTs at [facility] on 11/26/2020. Qualifiers: COPD type: emphysema Emphysema type: panlobular Qualified Code(s): J43.1 - Panlobular emphysema - Problem List Review Problem List Initiated/Reviewed/Updated: Yes - My Orders Last 24 Hours: My Active Orders 12/23/20 Breakfast Nothing per Oral Now Diet [DIET] 12/23/20 13:28 Cardiac Monitoring [RC] . DIRECTED EKG Documentation Completion [RC] ASDIRECTED Oxygen Therapy, ED [RC] PRN Peripheral IV Care [RC] . DIRECTED Pulse Oximetry [RC] CONTINUOUS Up With Assistance [RC] PFP Vital Signs [RC] PFP Chest 1V Frontal [CR] Stat Sodium Chloride 0.9% [Saline Flush] 10 ml FLUSH ASDIRECTED PRN Obtain Past Medical Record [OM.PC] Urgent Peripheral IV Insertion Adult [OM.PC] Stat Resuscitation Status Stat 12/23/20 14:21 Venous Doppler Lwr Ext Bi [US] Urgent 12/23/20 14:30 Chest PE [Ang Chest] [CT] Stat - Assessment/Plan Admission H&P: Please use this note as an admission H&P Last 24 Hours: My Active Orders 12/23/20 Breakfast Nothing per Oral Now Diet [DIET] 12/23/20 13:28 Cardiac Monitoring [RC] . DIRECTED EKG Documentation Completion [RC] ASDIRECTED Oxygen Therapy, ED [RC] PRN Peripheral IV Care [RC] . DIRECTED Pulse Oximetry [RC] CONTINUOUS Up With Assistance [RC] PFP Vital Signs [RC] PFP Chest 1V Frontal [CR] Stat Sodium Chloride 0.9% [Saline Flush] 10 ml FLUSH ASDIRECTED PRN Obtain Past Medical Record [OM.PC] Urgent Peripheral IV Insertion Adult [OM.PC] Stat Resuscitation Status Stat 12/23/20 14:21 Venous Doppler Lwr Ext Bi [US] Urgent 12/23/20 14:30 Chest PE [Ang Chest] [CT] Stat Assessment:: As above Plan: As above. Extensive precautions were given to the patient and her sister, who are in agreement with the treatment plan. The patient will require about 3-4 days of inpatient/acute care secondary to multiple health problems as above.
[2020-12-23 14:17] LABS: CHLORIDE,CL 106 mmol/L (98-107); SODIUM,NA 142 mmol/L (136-145)
[2020-12-23] MEDS ORDERED: Furosemide 40 MG/4 ML VIAL IVPUSH ONE (14:30)
[2020-12-23] MEDS ORDERED: Iopamidol 755 Mg/ML 100 ML Bottle IVPUSH STA (14:31)
[2020-12-23] MEDS ORDERED: Acetaminophen 325 MG Tab PO PRN (16:00)
[2020-12-23] MEDS ORDERED: Temazepam 15 MG Cap PO PRN (16:05)
[2020-12-23] MEDS ORDERED: Sodium Chloride 0.9% 10 ML Syringe FLUSH PRN (16:05)
[2020-12-23] MEDS: Magnesium Oxide 400 MG Tab PO SCH (17:34)
[2020-12-23] MEDS: Apixaban 5 MG Tab PO SCH (17:34)
[2020-12-23] MEDS: Potassium Chloride 20 MEQ Tab.ER PO SCH (17:36)
[2020-12-23] MEDS: atorvaSTATin 40 MG Tab PO SCH (19:53)
[2020-12-23] MEDS: Metoprolol Tartrate 25 MG Tab PO SCH (19:53)
[2020-12-23] MEDS: Furosemide 40 MG/4 ML VIAL IVPUSH SCH (22:56)
[2020-12-24] MEDS: Furosemide 40 MG/4 ML VIAL IVPUSH SCH ×3 (06:13→21:22)
[2020-12-24] MEDS: Amiodarone 200 MG Tab PO SCH (07:28)
[2020-12-24] MEDS: Potassium Chloride 20 MEQ Tab.ER PO SCH ×3 (07:28→17:17)
[2020-12-24] MEDS: Apixaban 5 MG Tab PO SCH ×2 (07:28→17:17)
[2020-12-24] MEDS: Levothyroxine 150 MCG Tab PO SCH (07:28)
[2020-12-24] MEDS: Aspirin 81 MG Tab.Chew PO SCH (07:28)
[2020-12-24] MEDS: Metoprolol Tartrate 25 MG Tab PO SCH ×2 (07:29→21:22)
[2020-12-24] MEDS: Sodium Chloride 0.9% 10 ML Syringe FLUSH PRN ×2 (07:32→12:45)
[2020-12-24 09:14] LABS: HEMOGLOBIN A1C 5.7 % (4.3-5.7)
--- NOTE | 2020-12-24 12:05 | PCM.PN ---
- General Info Date of Service: 12/24/20 Admission Dx/Problem (Free Text): 1. CHF 2. Coronary artery disease Functional Status: Reports: Pain Controlled, Tolerating Diet, Ambulating, Urinating, Incentive Spirometry. Denies: New Symptoms Pain Score: 0 - Review of Systems General: Reports: No Symptoms, Weakness (Stable chronic). Denies: Fever, Fatigue, Malaise, Chills, Night Sweats, Appetite HEENT: Reports: Glasses. Denies: Dysphasia, Ear Pain, Eye Pain, Headaches, Post Nasal Drip, Sinus Congestion, Sore Throat, Rhinitis, Visual Changes Pulmonary: Reports: Shortness of Breath. Denies: Pleuritic Chest Pain, Cough, Sputum, Hemoptysis, Wheezing Cardiovascular: Reports: No Symptoms, Dyspnea on Exertion (Improved), Edema (Improved). Denies: Chest Pain, Palpitations, Orthopnea, Lightheadedness Gastrointestinal: Reports: No Symptoms, Other (No bowel movements since admission with stool softener given this morning). Denies: Abdominal Pain, Constipation, Decreased Appetite, Diarrhea, Difficulty Swallowing, Flatus, Hemat ochezia, Melena, Nausea, Vomiting Genitourinary: Reports: No Symptoms. Denies: Dysuria, Frequency, Burning, Urgency, Incontinence, Hematuria, Retention, Flank Pain Musculoskeletal: Reports: No Symptoms. Denies: Neck Pain, Shoulder Pain, Arm Pain, Back Pain, Leg Pain Skin: Reports: No Symptoms. Denies: Diaphoresis, Bruising Neurological: Reports: No Symptoms, Difficulty Walking (Chronic with cane he is), Weakness (Stable chronic). Denies: Confusion, Headache Psychiatric: Reports: No Symptoms. Denies: Confusion, Depression, Anxiety, Agitation, Cravings, Hallucinations, Homicidal Ideation - Patient Data Vitals - Most Recent: Last Vital Signs Temp 36.7 C 12/24/20 08:00 Pulse 65 12/24/20 08:00 Resp 16 12/24/20 08:00 BP 114/79 12/24/20 08:00 Pulse Ox 100 12/24/20 08:00 Vital Signs - 24 hr 12/23/20 12/23/20 12/23/20 13:22 13:30 14:30 Temperature [ 37.0 C Temporal] Pulse, Peripheral Pulse, 67 66 65 Peripheral [ Pulse Oximetry] Respiratory 20 23 H 20 Rate Blood Pressure Blood Pressure 142/69 H 134/76 140/68 [Right Upper Arm] O2 Sat by Pulse 100 100 99 Oximetry 12/23/20 12/23/20 12/23/20 15:30 18:05 19:53 Temperature [ 36.6 C Temporal] Pulse, 67 Peripheral Pulse, 64 67 Peripheral [ Pulse Oximetry] Respiratory 19 14 Rate Blood Pressure 131/71 Blood Pressure 124/61 131/71 [Right Upper Arm] O2 Sat by Pulse 99 100 Oximetry 12/24/20 12/24/20 12/24/20 00:00 06:14 07:29 Temperature [ 36.3 C 36.2 C Temporal] Pulse, 65 Peripheral Pulse, 62 65 Peripheral [ Pulse Oximetry] Respiratory 18 12 Rate Blood Pressure 114/79 Blood Pressure 106/63 116/76 [Right Upper Arm] O2 Sat by Pulse 100 95 Oximetry 12/24/20 08:00 Temperature [ 36.7 C Temporal] Pulse, Peripheral Pulse, 65 Peripheral [ Pulse Oximetry] Respiratory 16 Rate Blood Pressure Blood Pressure 114/79 [Right Upper Arm] O2 Sat by Pulse 100 Oximetry Weight - Most Recent: 88.859 kg I&O - Last 24 Hours: Intake & Output 12/23/20 12/24/20 12/24/20 22:59 06:59 14:59 Intake Total 360 Output Total 1700 1100 1000 Balance -1700 -1100 -640 Imaging Impressions - Last 24 Hours: panel monitor shows normal sinus rhythm with heart rate in the 60s with no ectopy or arrhythmia CTA of the chest on 12/23/2020 was negative for PE with incidental findings of CHF with left pleural effusion and stable benign pulmonary nodule. Preliminary verbal report of venous Doppler studies of the lower extremities bilaterally by [place] public health technician, on 12/23/2020 shows no evidence of DVT. Final report pending. Lab Results Last 24 Hours: Laboratory Results - last 24 hr 12/23/20 12/23/20 12/23/20 Range/Units 13:45 13:45 13:45 WBC 6.9 (4.0-10.2) K/uL RBC 4.03 (3.77-5.09) M/uL Hgb 12.5 (11.7-15.5) g/dL Hct 38.7 (34.0-46.0) % MCV 96.0 (84.0-98.0) fL MCH 31.0 (28.2-33.3) pg MCHC 32.3 (31.7-36.0) g/dL RDW 15.0 H (11.2-14.1) % Plt Count 297 D (150-350) K/uL Neut % (Auto) 66.4 (45.0-80.0) % Lymph % (Auto) 19.5 (10.0-50.0) % Tyrrell % (Auto) 9.6 (2.0-14.0) % Eos % (Auto) 4.2 (0.0-5.0) % Baso % (Auto) 0.3 (0.0-2.0) % Neut # (Auto) 4.59 (1.40-7.00) K/uL Lymph # (Auto) 1.35 (0.50-3.50) K/uL [place]rell # (Auto) 0.66 (0.00-1.00) K/uL Eos # (Auto) 0.29 (0.00-0.50) K/uL Baso # (Auto) 0.02 (0.00-0.20) K/uL INR 1.2 D-Dimer, Quantitative 1160 H (0-400) ng/mL Sodium (136-145) mmol/L Potassium (3.5-5.1) mmol/L Chloride (98-107) mmol/L Carbon Dioxide (21.0-32.0) mmol/L BUN (7-18) mg/dL Creatinine (0.51-1.17) mg/dL Est Cr Clr Drug Dosing Estimated GFR (MDRD) mL/min Glucose (70-99) mg/dL Hemoglobin A1c (4.3-5.7) % Lactic Acid (0.4-2.0) mmol/L Uric Acid (2.6-7.2) mg/dL Calcium (8.5-10.1) mg/dL Magnesium (1.8-2.4) mg/dL Total Bilirubin (0.2-1.0) mg/dL AST (15-37) U/L ALT (12-78) U/L Alkaline Phosphatase (46-116) IU/L Troponin I (0.000-0.056) ng/mL NT-Pro-B Natriuret Pep (0-125) pg/mL Total Protein (6.4-8.2) g/dL Albumin (3.4-5.0) g/dL TSH, Ultra Sensitive (0.358-3.740) mIU/mL 12/23/20 12/23/20 12/23/20 Range/Units 13:45 13:45 21:05 WBC (4.0-10.2) K/uL RBC (3.77-5.09) M/uL Hgb (11.7-15.5) g/dL Hct (34.0-46.0) % MCV (84.0-98.0) fL MCH (28.2-33.3) pg MCHC (31.7-36.0) g/dL RDW (11.2-14.1) % Plt Count (150-350) K/uL Neut % (Auto) (45.0-80.0) % Lymph % (Auto) (10.0-50.0) % Tyrrell % (Auto) (2.0-14.0) % Eos % (Auto) (0.0-5.0) % Baso % (Auto) (0.0-2.0) % Neut # (Auto) (1.40-7.00) K/uL Lymph # (Auto) (0.50-3.50) K/uL [place]rell # (Auto) (0.00-1.00) K/uL Eos # (Auto) (0.00-0.50) K/uL Baso # (Auto) (0.00-0.20) K/uL INR D-Dimer, Quantitative (0-400) ng/mL Sodium 142 (136-145) mmol/L Potassium 4.2 (3.5-5.1) mmol/L Chloride 106 (98-107) mmol/L Carbon Dioxide 28.0 (21.0-32.0) mmol/L BUN 15 (7-18) mg/dL Creatinine 1.10 (0.51-1.17) mg/dL Est Cr Clr Drug Dosing TNP Estimated GFR (MDRD) 50 mL/min Glucose 120 H (70-99) mg/dL Hemoglobin A1c (4.3-5.7) % Lactic Acid 1.5 (0.4-2.0) mmol/L Uric Acid 5.4 (2.6-7.2) mg/dL Calcium 8.8 (8.5-10.1) mg/dL Magnesium 2.1 (1.8-2.4) mg/dL Total Bilirubin 0.4 (0.2-1.0) mg/dL AST 12 L (15-37) U/L ALT 26 (12-78) U/L Alkaline Phosphatase 70 (46-116) IU/L Troponin I 0.000 0.000 (0.000-0.056) ng/mL NT-Pro-B Natriuret Pep 1678 H (0-125) pg/mL Total Protein 7.7 (6.4-8.2) g/dL Albumin 3.5 (3.4-5.0) g/dL TSH, Ultra Sensitive 15.036 H (0.358-3.740) mIU/mL 12/24/20 12/24/20 12/24/20 Range/Units 07:45 07:45 07:45 WBC 5.5 (4.0-10.2) K/uL RBC 4.29 (3.77-5.09) M/uL Hgb 13.0 (11.7-15.5) g/dL Hct 40.9 (34.0-46.0) % MCV 95.3 (84.0-98.0) fL MCH 30.3 (28.2-33.3) pg MCHC 31.8 (31.7-36.0) g/dL RDW 15.2 H (11.2-14.1) % Plt Count 281 (150-350) K/uL Neut % (Auto) 64.1 (45.0-80.0) % Lymph % (Auto) 21.3 (10.0-50.0) % Tyrrell % (Auto) 9.4 (2.0-14.0) % Eos % (Auto) 4.7 (0.0-5.0) % Baso % (Auto) 0.5 (0.0-2.0) % Neut # (Auto) 3.55 (1.40-7.00) K/uL Lymph # (Auto) 1.18 (0.50-3.50) K/uL [place]rell # (Auto) 0.52 (0.00-1.00) K/uL Eos # (Auto) 0.26 (0.00-0.50) K/uL Baso # (Auto) 0.03 (0.00-0.20) K/uL INR D-Dimer, Quantitative 1270 H (0-400) ng/mL Sodium 142 (136-145) mmol/L Potassium 3.9 (3.5-5.1) mmol/L Chloride 103 (98-107) mmol/L Carbon Dioxide 30.1 (21.0-32.0) mmol/L BUN 16 (7-18) mg/dL Creatinine 1.27 H (0.51-1.17) mg/dL Est Cr Clr Drug Dosing 33.77 Estimated GFR (MDRD) 42 mL/min Glucose 111 H (70-99) mg/dL Hemoglobin A1c (4.3-5.7) % Lactic Acid (0.4-2.0) mmol/L Uric Acid (2.6-7.2) mg/dL Calcium 9.5 (8.5-10.1) mg/dL Magnesium (1.8-2.4) mg/dL Total Bilirubin 0.6 (0.2-1.0) mg/dL AST 14 L (15-37) U/L ALT 29 (12-78) U/L Alkaline Phosphatase 74 (46-116) IU/L Troponin I 0.000 (0.000-0.056) ng/mL NT-Pro-B Natriuret Pep 1350 H (0-125) pg/mL Total Protein 8.1 (6.4-8.2) g/dL Albumin 3.8 (3.4-5.0) g/dL TSH, Ultra Sensitive (0.358-3.740) mIU/mL 12/24/20 Range/Units 07:45 WBC (4.0-10.2) K/uL RBC (3.77-5.09) M/uL Hgb (11.7-15.5) g/dL Hct (34.0-46.0) % MCV (84.0-98.0) fL MCH (28.2-33.3) pg MCHC (31.7-36.0) g/dL RDW (11.2-14.1) % Plt Count (150-350) K/uL Neut % (Auto) (45.0-80.0) % Lymph % (Auto) (10.0-50.0) % Tyrrell % (Auto) (2.0-14.0) % Eos % (Auto) (0.0-5.0) % Baso % (Auto) (0.0-2.0) % Neut # (Auto) (1.40-7.00) K/uL Lymph # (Auto) (0.50-3.50) K/uL [place]rell # (Auto) (0.00-1.00) K/uL Eos # (Auto) (0.00-0.50) K/uL Baso # (Auto) (0.00-0.20) K/uL INR D-Dimer, Quantitative (0-400) ng/mL Sodium (136-145) mmol/L Potassium (3.5-5.1) mmol/L Chloride (98-107) mmol/L Carbon Dioxide (21.0-32.0) mmol/L BUN (7-18) mg/dL Creatinine (0.51-1.17) mg/dL Est Cr Clr Drug Dosing Estimated GFR (MDRD) mL/min Glucose (70-99) mg/dL Hemoglobin A1c 5.7 (4.3-5.7) % Lactic Acid (0.4-2.0) mmol/L Uric Acid (2.6-7.2) mg/dL Calcium (8.5-10.1) mg/dL Magnesium (1.8-2.4) mg/dL Total Bilirubin (0.2-1.0) mg/dL AST (15-37) U/L ALT (12-78) U/L Alkaline Phosphatase (46-116) IU/L Troponin I (0.000-0.056) ng/mL NT-Pro-B Natriuret Pep (0-125) pg/mL Total Protein (6.4-8.2) g/dL Albumin (3.4-5.0) g/dL TSH, Ultra Sensitive (0.358-3.740) mIU/mL Srinath Results Last 24 Hours: None Med Orders - Current: Current Medications Acetaminophen (Acetaminophen 325 Mg Tab) 650 mg PO Q4H PRN PRN Reason: Pain Amiodarone HCl (Amiodarone 200 Mg Tab) 200 mg PO DAILY [facility] Last Admin: 12/24/20 07:28 Dose: 200 mg Documented by: Apixaban (Apixaban 5 Mg Tab) 5 mg PO BID [facility] Last Admin: 12/24/20 07:28 Dose: 5 mg Documented by: Aspirin (Aspirin 81 Mg Tab.Chew) 81 mg PO DAILY [facility] Last Admin: 12/24/20 07:28 Dose: 81 mg Documented by: Atorvastatin Calcium (Atorvastatin 40 Mg Tab) 80 mg PO BEDTIME [facility] Last Admin: 12/23/20 19:53 Dose: 80 mg Documented by: Furosemide (Furosemide 40 Mg/4 Ml Vial) 40 mg IVPUSH Q8H [facility] Last Admin: 12/24/20 06:13 Dose: 40 mg Documented by: Levothyroxine Sodium (Levothyroxine 150 Mcg Tab) 150 mcg PO ACBREAKFAST [facility] Last Admin: 12/24/20 07:28 Dose: 150 mcg Documented by: Magnesium Oxide (Magnesium Oxide 400 Mg Tab) 400 mg PO QPM [facility] Last Admin: 12/23/20 17:34 Dose: 400 mg Documented by: Metoprolol Tartrate (Metoprolol Tartrate 25 Mg Tab) 25 mg PO Q12HR [facility] Last Admin: 12/24/20 07:29 Dose: 25 mg Documented by: Potassium Chloride (Potassium Chloride 20 Meq Tab.Er) 20 meq PO TID [facility] Last Admin: 12/24/20 07:28 Dose: 20 meq Documented by: Senna/Docusate Sodium (Docusate Sodium/Sennosides 50-8.6 Mg Tab) 1 tab PO DAILY [facility] Last Admin: 12/24/20 07:28 Dose: 1 tab Documented by: Sodium Chloride (Sodium Chloride 0.9% 10 Ml Syringe) 10 ml FLUSH ASDIRECTED PRN PRN Reason: Keep Vein Open Last Admin: 12/24/20 07:32 Dose: 10 ml Documented by: Sodium Chloride (Sodium Chloride 0.9% 10 Ml Syringe) 10 ml FLUSH Q12HR PRN PRN Reason: Keep Vein Open Temazepam (Temazepam 15 Mg Cap) 15 mg PO BEDTIME PRN PRN Reason: Insomnia Discontinued Medications Famotidine (Famotidine 20 Mg/2 Ml Sdv) 40 mg IVPUSH ONETIME ONE Stop: 12/23/20 13:29 Last Admin: 12/23/20 14:14 Dose: 40 mg Documented by: Furosemide (Furosemide 40 Mg/4 Ml Vial) 60 mg IVPUSH NOW ONE Stop: 12/23/20 14:31 Last Admin: 12/23/20 15:35 Dose: 60 mg Documented by: Iopamidol (Iopamidol 755 Mg/Ml 100 Ml Bottle) 100 ml IVPUSH ONETIME STA Stop: 12/23/20 14:32 Last Admin: 12/23/20 15:17 Dose: 100 ml Documented by: - Exam Quality Assessment: DVT Prophylaxis. No: Supplemental Oxygen, [place] e/PICC, Urine Catheter, Skin Breakdown, Restraints General: Alert, Oriented, Cooperative, No Acute Distress HEENT: Pupils Equal, Pupils Reactive, EOMI, Mucous Membr. Moist/[place], Other (Patient is wearing glasses). No: Scleral Icterus Neck: Supple, Trachea Midline, No JVD, No Thyromegaly. No: Lymphadenopathy Lungs: Normal Respiratory Effort, Rales (Improved diffuse bilateral rales). No: Rhonchi, Rub, Wheezing Cardiovascular: Regular Rate, Regular Rhythm, No Murmurs. No: Gallops, Rubs GI/Abdominal Exam: Normal Bowel Sounds, Soft, Non-Tender, No Organomegaly, No Distention, No Abnormal Bruit, No Mass, Other (Obese). No: Guarding (Female) Exam: Deferred Back Exam: Normal Inspection, Full Range of Motion. No: CVA Tenderness (L), CVA Tenderness (R), Muscle Spasm Extremities: Normal Range of Motion, Non-Tender, Normal Capillary Refill, Pedal Edema (Improved bilateral trace+1 pedal/pretibial edema), Other (VICENTE hose in place). No: Prudence's Sign Peripheral Pulses: 2+: Radial (L), Radial (R), Dorsalis Pedis (L), Dorsalis Pedis (R) Skin: Warm, Dry, Intact. No: Ecchymosis Neurological: No New Focal Deficit, Other (No clinical orthostasis) Psy/Mental Status: Alert, Normal Affect, Normal Mood. No: Agitated, Hallucinations, Withdrawal Symptoms #1 Interpretation EKG Date: 12/24/20 Time: 07:54 Rhythm: NSR Rate (Beats/Min): 70 [place]: Normal (Left which is a change from neutral) P-Wave: Enlarged (Moderate diffuse biphasic P waves) QRS: Normal (0.08 seconds) ST-T: Other (Somewhat improved however persistent moderate diffuse ST changes and T wave inversions) QT: Prolonged ([place]) MN/PQ Interval: 0.18 seconds with pulmonary hypertension by EKG Comparison: Change From Previous EKG (As above since 12/23/2020) EKG Interpretation Comments: 1. Diffuse coronary artery disease 2. Left atrial enlargement - Patient Data Lab Results Last 24 hrs: Laboratory Results - last 24 hr 12/23/20 12/23/20 12/23/20 Range/Units 13:45 13:45 13:45 WBC 6.9 (4.0-10.2) K/uL RBC 4.03 (3.77-5.09) M/uL Hgb 12.5 (11.7-15.5) g/dL Hct 38.7 (34.0-46.0) % MCV 96.0 (84.0-98.0) fL MCH 31.0 (28.2-33.3) pg MCHC 32.3 (31.7-36.0) g/dL RDW 15.0 H (11.2-14.1) % Plt Count 297 D (150-350) K/uL Neut % (Auto) 66.4 (45.0-80.0) % Lymph % (Auto) 19.5 (10.0-50.0) % Tyrrell % (Auto) 9.6 (2.0-14.0) % Eos % (Auto) 4.2 (0.0-5.0) % Baso % (Auto) 0.3 (0.0-2.0) % Neut # (Auto) 4.59 (1.40-7.00) K/uL Lymph # (Auto) 1.35 (0.50-3.50) K/uL Tyrrell # (Auto) 0.66 (0.00-1.00) K/uL Eos # (Auto) 0.29 (0.00-0.50) K/uL Baso # (Auto) 0.02 (0.00-0.20) K/uL INR 1.2 D-Dimer, Quantitative 1160 H (0-400) ng/mL Sodium (136-145) mmol/L Potassium (3.5-5.1) mmol/L Chloride (98-107) mmol/L Carbon Dioxide (21.0-32.0) mmol/L BUN (7-18) mg/dL Creatinine (0.51-1.17) mg/dL Est Cr Clr Drug Dosing Estimated GFR (MDRD) mL/min Glucose (70-99) mg/dL Hemoglobin A1c (4.3-5.7) % Lactic Acid (0.4-2.0) mmol/L Uric Acid (2.6-7.2) mg/dL Calcium (8.5-10.1) mg/dL Magnesium (1.8-2.4) mg/dL Total Bilirubin (0.2-1.0) mg/dL AST (15-37) U/L ALT (12-78) U/L Alkaline Phosphatase (46-116) IU/L Troponin I (0.000-0.056) ng/mL NT-Pro-B Natriuret Pep (0-125) pg/mL Total Protein (6.4-8.2) g/dL Albumin (3.4-5.0) g/dL TSH, Ultra Sensitive (0.358-3.740) mIU/mL 12/23/20 12/23/20 12/23/20 Range/Units 13:45 13:45 21:05 WBC (4.0-10.2) K/uL RBC (3.77-5.09) M/uL Hgb (11.7-15.5) g/dL Hct (34.0-46.0) % MCV (84.0-98.0) fL MCH (28.2-33.3) pg MCHC (31.7-36.0) g/dL RDW (11.2-14.1) % Plt Count (150-350) K/uL Neut % (Auto) (45.0-80.0) % Lymph % (Auto) (10.0-50.0) % Tyrrell % (Auto) (2.0-14.0) % Eos % (Auto) (0.0-5.0) % Baso % (Auto) (0.0-2.0) % Neut # (Auto) (1.40-7.00) K/uL Lymph # (Auto) (0.50-3.50) K/uL [place]rell # (Auto) (0.00-1.00) K/uL Eos # (Auto) (0.00-0.50) K/uL Baso # (Auto) (0.00-0.20) K/uL INR D-Dimer, Quantitative (0-400) ng/mL Sodium 142 (136-145) mmol/L Potassium 4.2 (3.5-5.1) mmol/L Chloride 106 (98-107) mmol/L Carbon Dioxide 28.0 (21.0-32.0) mmol/L BUN 15 (7-18) mg/dL Creatinine 1.10 (0.51-1.17) mg/dL Est Cr Clr Drug Dosing TNP Estimated GFR (MDRD) 50 mL/min Glucose 120 H (70-99) mg/dL Hemoglobin A1c (4.3-5.7) % Lactic Acid 1.5 (0.4-2.0) mmol/L Uric Acid 5.4 (2.6-7.2) mg/dL Calcium 8.8 (8.5-10.1) mg/dL Magnesium 2.1 (1.8-2.4) mg/dL Total Bilirubin 0.4 (0.2-1.0) mg/dL AST 12 L (15-37) U/L ALT 26 (12-78) U/L Alkaline Phosphatase 70 (46-116) IU/L Troponin I 0.000 0.000 (0.000-0.056) ng/mL NT-Pro-B Natriuret Pep 1678 H (0-125) pg/mL Total Protein 7.7 (6.4-8.2) g/dL Albumin 3.5 (3.4-5.0) g/dL TSH, Ultra Sensitive 15.036 H (0.358-3.740) mIU/mL 12/24/20 12/24/20 12/24/20 Range/Units 07:45 07:45 07:45 WBC 5.5 (4.0-10.2) K/uL RBC 4.29 (3.77-5.09) M/uL Hgb 13.0 (11.7-15.5) g/dL Hct 40.9 (34.0-46.0) % MCV 95.3 (84.0-98.0) fL MCH 30.3 (28.2-33.3) pg MCHC 31.8 (31.7-36.0) g/dL RDW 15.2 H (11.2-14.1) % Plt Count 281 (150-350) K/uL Neut % (Auto) 64.1 (45.0-80.0) % Lymph % (Auto) 21.3 (10.0-50.0) % Tyrrell % (Auto) 9.4 (2.0-14.0) % Eos % (Auto) 4.7 (0.0-5.0) % Baso % (Auto) 0.5 (0.0-2.0) % Neut # (Auto) 3.55 (1.40-7.00) K/uL Lymph # (Auto) 1.18 (0.50-3.50) K/uL [place]rell # (Auto) 0.52 (0.00-1.00) K/uL Eos # (Auto) 0.26 (0.00-0.50) K/uL Baso # (Auto) 0.03 (0.00-0.20) K/uL INR D-Dimer, Quantitative 1270 H (0-400) ng/mL Sodium 142 (136-145) mmol/L Potassium 3.9 (3.5-5.1) mmol/L Chloride 103 (98-107) mmol/L Carbon Dioxide 30.1 (21.0-32.0) mmol/L BUN 16 (7-18) mg/dL Creatinine 1.27 H (0.51-1.17) mg/dL Est Cr Clr Drug Dosing 33.77 Estimated GFR (MDRD) 42 mL/min Glucose 111 H (70-99) mg/dL Hemoglobin A1c (4.3-5.7) % Lactic Acid (0.4-2.0) mmol/L Uric Acid (2.6-7.2) mg/dL Calcium 9.5 (8.5-10.1) mg/dL Magnesium (1.8-2.4) mg/dL Total Bilirubin 0.6 (0.2-1.0) mg/dL AST 14 L (15-37) U/L ALT 29 (12-78) U/L Alkaline Phosphatase 74 (46-116) IU/L Troponin I 0.000 (0.000-0.056) ng/mL NT-Pro-B Natriuret Pep 1350 H (0-125) pg/mL Total Protein 8.1 (6.4-8.2) g/dL Albumin 3.8 (3.4-5.0) g/dL TSH, Ultra Sensitive (0.358-3.740) mIU/mL 12/24/20 Range/Units 07:45 WBC (4.0-10.2) K/uL RBC (3.77-5.09) M/uL Hgb (11.7-15.5) g/dL Hct (34.0-46.0) % MCV (84.0-98.0) fL MCH (28.2-33.3) pg MCHC (31.7-36.0) g/dL RDW (11.2-14.1) % Plt Count (150-350) K/uL Neut % (Auto) (45.0-80.0) % Lymph % (Auto) (10.0-50.0) % [place] % (Auto) (2.0-14.0) % Eos % (Auto) (0.0-5.0) % Baso % (Auto) (0.0-2.0) % Neut # (Auto) (1.40-7.00) K/uL Lymph # (Auto) (0.50-3.50) K/uL [place] # (Auto) (0.00-1.00) K/uL Eos # (Auto) (0.00-0.50) K/uL Baso # (Auto) (0.00-0.20) K/uL INR D-Dimer, Quantitative (0-400) ng/mL Sodium (136-145) mmol/L Potassium (3.5-5.1) mmol/L Chloride (98-107) mmol/L Carbon Dioxide (21.0-32.0) mmol/L BUN (7-18) mg/dL Creatinine (0.51-1.17) mg/dL Est Cr Clr Drug Dosing Estimated GFR (MDRD) mL/min Glucose (70-99) mg/dL Hemoglobin A1c 5.7 (4.3-5.7) % Lactic Acid (0.4-2.0) mmol/L Uric Acid (2.6-7.2) mg/dL Calcium (8.5-10.1) mg/dL Magnesium (1.8-2.4) mg/dL Total Bilirubin (0.2-1.0) mg/dL AST (15-37) U/L ALT (12-78) U/L Alkaline Phosphatase (46-116) IU/L Troponin I (0.000-0.056) ng/mL NT-Pro-B Natriuret Pep (0-125) pg/mL Total Protein (6.4-8.2) g/dL Albumin (3.4-5.0) g/dL TSH, Ultra Sensitive (0.358-3.740) mIU/mL Result Diagrams: 12/24/20 07:45 12/24/20 07:45 Sepsis Event Note - Evaluation Sepsis Screening Result: No Definite Risk - Focused Exam Vital Signs: Vital Signs Temp Pulse Pulse Resp BP BP Pulse Ox 12/24/20 08:00 36.7 C 65 16 114/79 100 12/24/20 07:29 65 114/79 12/24/20 06:14 36.2 C 65 12 116/76 95 - Problem List & Annotations (1) CHF (congestive heart failure) SNOMED Code(s): 35876987 Code(s): I50.9 - HEART FAILURE, UNSPECIFIED Status: Acute Priority: High Current Visit: Yes Qualifiers: Heart failure type: systolic Heart failure chronicity: acute on chronic Qualified Code(s): I50.23 - Acute on chronic systolic (congestive) heart failure Annotation/Comment:: Various therapeutic options were discussed with the patient and her sister with the patient preferring to stay in this facility. High-dose IV Lasix initiated in the emergency room. Note recent echocardiogram as per emergency room note. Further medication adjustment during this hospitalization depending on her clinical course. Continue rule out of acute VT, which is negative to this point, with overall stable diffuse ischemic changes by EKG with no chest pain or anginal type symptoms. (2) D-dimer, elevated SNOMED Code(s): 420674760 Code(s): R79.89 - OTHER SPECIFIED ABNORMAL FINDINGS OF BLOOD CHEMISTRY Status: Chronic Priority: Medium Current Visit: Yes Annotation/Comment:: Note long history of D-dimer elevation with previous negative work-up as above. Secondary to progressive dyspnea, moderate D-dimer elevation, recent CABG, etc.. Note negative CTA of the chest and venous Doppler studies of the lower extremities on 12/23/2020 as above. Continue current Eliquis therapy secondary to her recurrent atrial fibrillation. No direct clinical evidence of DVT or PE at time of admission. (3) Coronary artery disease SNOMED Code(s): 23236695 Code(s): I25.10 - ATHSCL HEART DISEASE OF [place] CORONARY ARTERY W/O ANG PCTRS Status: Chronic Priority: Medium Current Visit: Yes Onset Date: ~11/24/20 Qualifiers: Coronary Disease-Associated Artery/Lesion type: bypass graft [place] vs. transplanted heart: three affiliated heart Associated angina: without angina Qualified Code(s): I25.810 - Atherosclerosis of coronary artery bypass graft(s) without angina pectoris Annotation/Comment:: As above. Note non-STEMI on 11/24/2020 with three-vessel CABG on 11/26/2020. Mostly postoperative chest wall pain at this time. Cardiology consultation depending on her clinical course. Diffuse ischemic changes by EKG were stable during this hospitalization. Last cardiology consultation at [facility] on 12/17/2020. (4) Hypothyroidism SNOMED Code(s): 94042936 Code(s): E03.9 - HYPOTHYROIDISM, UNSPECIFIED Status: Chronic Priority: Medium Current Visit: Yes Qualifiers: Hypothyroidism type: postoperative Qualified Code(s): E89.0 - Postprocedural hypothyroidism Annotation/Comment:: Note status post partial thyroidectomy's x2 as above. TSH elevated today possibly secondary to current amiodarone therapy. Her Synthroid supplementation was apparently increased 1 week ago. Continue repeat TSH in about 2 weeks. (5) Hypertension SNOMED Code(s): 07452637 Code(s): I10 - ESSENTIAL (PRIMARY) HYPERTENSION Status: Chronic Priority: Medium Current Visit: Yes Qualifiers: Hypertension type: essential hypertension Qualified Code(s): I10 - E ssential (primary) hypertension Annotation/Comment:: Stable in the emergency room and during this hospitalization. Continue to observe closely by her regular providers after discharge. (6) Hyperlipidemia SNOMED Code(s): 89874213 Code(s): E78.5 - HYPERLIPIDEMIA, UNSPECIFIED Status: Chronic Priority: Medium Current Visit: Yes Qualifiers: Hyperlipidemia type: unspecified Qualified Code(s): E78.5 - Hyperlipidemia, unspecified Annotation/Comment:: Note obesity with weight loss in moderation advisable. Note recently initiated Lipitor therapy secondary to her recent non-STEMI. Close follow-up by regular provider. Glycosylated hemoglobin normal at 5.7% on 12/24/2020. (7) Peptic reflux disease SNOMED Code(s): 814210759 Code(s): K21.9 - GASTRO-ESOPHAGEAL REFLUX DISEASE WITHOUT ESOPHAGITIS Status: Chronic Priority: Medium Current Visit: Yes Annotation/Comment:: High-dose IV Pepcid given in the emergency room as GI prophylaxis. Consider additional EGD on an outpatient basis depending on her clinical course once her current cardiac symptoms have stabilized. (8) Osteoarthritis SNOMED Code(s): 960590619 Code(s): M19.90 - UNSPECIFIED OSTEOARTHRITIS, UNSPECIFIED SITE Status: Chronic Priority: Medium Current Visit: Yes Qualifiers: Osteoarthritis location: multiple joints Osteoarthritis type: primary Qualified Code(s): M89.49 - Other hypertrophic osteoarthropathy, multiple sites Annotation/Comment:: Stable by history with current cane use. PT and OT consultation ordered on 12/24 for strengthening. (9) COPD (chronic obstructive pulmonary disease) SNOMED Code(s): 73465423 Code(s): J44.9 - CHRONIC OBSTRUCTIVE PULMONARY DISEASE, UNSPECIFIED Status: Chronic Current Visit: Yes Qualifiers: COPD type: emphysema Emphysema type: panlobular Qualified Code(s): J43.1 - Panlobular emphysema Annotation/Comment:: No recent fever or bronchitic type symptoms. Previous negative COVID-[address] [facility] in [place] with additional patient being completely immunized with Moderna. Note previous bedside PFTs at [facility] on 11/26/2020. - Problem List Review Problem List Initiated/Reviewed/Updated: Yes - My Orders Last 24 Hours: My Active Orders 12/23/20 13:28 Cardiac Monitoring [RC] Q2HR EKG Documentation Completion [RC] ASDIRECTED Peripheral IV Care [RC] . DIRECTED Chest 1V Frontal [CR] Stat Sodium Chloride 0.9% [Saline Flush] 10 ml FLUSH ASDIRECTED PRN Peripheral IV Insertion Adult [OM.PC] Stat Resuscitation Status Stat 12/23/20 14:21 Venous Doppler Lwr Ext Bi [US] Urgent 12/23/20 14:30 Chest PE [Ang Chest] [CT] Stat 12/23/20 16:00 Acetaminophen [TylenoL] 650 mg PO Q4H PRN 12/23/20 16:05 Antiembolic Devices [RC] .Routine Antiembolic Devices [RC] Communication, Vaccine [RC] PER UNIT ROUTINE Height and Weight [RC] DAILY Intake and Output Strict [RC] Oxygen Therapy [RC] PRN Pulse Oximetry [RC] ASDIRECTED Up With Assistance [RC] ASDIRECTED VTE/DVT Education [RC] PER UNIT ROUTINE OCCULT BLOOD DIAGNOSTIC [OP] Stat Sodium Chloride 0.9% [Saline Flush] 10 ml FLUSH Q12HR PRN Temazepam [Restoril] 15 mg PO BEDTIME PRN Antiembolic Hose [OM.PC] Routine CHF Questionnaire [COMM] Routine DVT/VTE Prophylaxis Reflex [OM.PC] Routine GM Immunization Reflex [OM.PC] Click to Edit 12/23/20 16:15 H PYLORI STOOL ANTIGEN [MREF] ONETIME 12/23/20 Dinner Fluid Restriction [DIET] 12/23/20 18:00 Apixaban [Eliquis] 5 mg PO BID Magnesium Oxide 400 mg PO QPM Potassium Chloride [Klor-Con M20] 20 meq PO TID 12/23/20 20:00 Metoprolol Tartrate [Lopressor] 25 mg PO Q12HR atorvaSTATin [Lipitor] 80 mg PO BEDTIME 12/23/20 22:00 Furosemide [Lasix] 40 mg IVPUSH Q8H 12/23/20 22:10 Vital Signs [RC] Q4HR 12/24/20 05:11 EKG Documentation Completion [RC] ASDIRECTED 12/24/20 07:30 Levothyroxine 150 mcg PO ACBREAKFAST 12/24/20 08:00 Amiodarone [Cordarone] 200 mg PO DAILY Aspirin 81 mg PO DAILY Docusate Sodium/Sennosides [Senna Plus] 1 tab PO DAILY - Assessment Assessment:: As above - Plan Plan:: As above. Extensive precautions were given to the patient, who is in agreement with the treatment plan. The patient will require about 2-3 days of inpatient/acute care secondary to multiple health problems as above. Melvi lange provider assumes care in the a.m.
[2020-12-24] MEDS: Magnesium Oxide 400 MG Tab PO SCH (17:17)
[2020-12-24] MEDS: atorvaSTATin 40 MG Tab PO SCH (21:22)
[2020-12-25] MEDS: Furosemide 40 MG/4 ML VIAL IVPUSH SCH (06:11)
[2020-12-25] MEDS: Sodium Chloride 0.9% 10 ML Syringe FLUSH PRN (06:11)
[2020-12-25] MEDS: Aspirin 81 MG Tab.Chew PO SCH (07:40)
[2020-12-25] MEDS: Potassium Chloride 20 MEQ Tab.ER PO SCH ×2 (07:40→12:29)
[2020-12-25] MEDS: Metoprolol Tartrate 25 MG Tab PO SCH ×2 (07:41→20:03)
[2020-12-25] MEDS: Apixaban 5 MG Tab PO SCH ×2 (07:41→17:10)
[2020-12-25] MEDS: Levothyroxine 150 MCG Tab PO SCH (07:41)
[2020-12-25] MEDS: Amiodarone 200 MG Tab PO SCH (07:42)
--- NOTE | 2020-12-25 10:14 | PCM.PN ---
- General Info Date of Service: 12/25/20 Subjective Update: Pt. did well overnight. Her dypnea continues to improve. Pt. denies any shortness of breath at rest, and has been up walking in the hallways. She is currently on IV furosemide 40mg q 8 hours. She has diuresed approx. 5500 ml. since admission. ProBNP has improved as well. Troponin he remained negative. Denies any chest pain, palpitations, or lightheadedness. Denies any nausea, vomiting, or diarrhea. Functional Status: Reports: Pain Controlled, Tolerating Diet, Ambulating - Review of Systems General: Reports: No Symptoms HEENT: Reports: No Symptoms Pulmonary: Reports: No Symptoms Cardiovascular: Reports: No Symptoms Gastrointestinal: Reports: No Symptoms Genitourinary: Reports: No Symptoms Musculoskeletal: Reports: No Symptoms Skin: Reports: No Symptoms Neurological: Reports: No Symptoms Psychiatric: Reports: No Symptoms - Patient Data Vitals - Most Recent: Last Vital Signs Temp 36.6 C 12/25/20 08:00 Pulse 66 12/25/20 08:00 Resp 16 12/25/20 08:00 BP 123/79 12/25/20 08:00 Pulse Ox 97 12/25/20 08:00 Weight - Most Recent: 88.042 kg I&O - Last 24 Hours: Intake & Output 12/24/20 12/25/20 12/25/20 22:59 06:59 14:59 Intake Total 300 200 Output Total 700 1000 Balance -400 -800 Lab Results Last 24 Hours: Laboratory Results - last 24 hr 12/25/20 12/25/20 Range/Units 07:21 07:21 WBC 5.3 (4.0-10.2) K/uL RBC 4.18 (3.77-5.09) M/uL Hgb 12.7 (11.7-15.5) g/dL Hct 39.6 (34.0-46.0) % MCV 94.7 (84.0-98.0) fL MCH 30.4 (28.2-33.3) pg MCHC 32.1 (31.7-36.0) g/dL RDW 15.3 H (11.2-14.1) % Plt Count 265 (150-350) K/uL Neut % (Auto) 61.5 (45.0-80.0) % Lymph % (Auto) 22.3 (10.0-50.0) % [place] % (Auto) 10.5 (2.0-14.0) % Eos % (Auto) 5.1 H (0.0-5.0) % Baso % (Auto) 0.6 (0.0-2.0) % Neut # (Auto) 3.28 (1.40-7.00) K/uL Lymph # (Auto) 1.19 (0.50-3.50) K/uL [place] # (Auto) 0.56 (0.00-1.00) K/uL Eos # (Auto) 0.27 (0.00-0.50) K/uL Baso # (Auto) 0.03 (0.00-0.20) K/uL Sodium 144 (136-145) mmol/L Potassium 4.3 (3.5-5.1) mmol/L Chloride 104 (98-107) mmol/L Carbon Dioxide 27.3 (21.0-32.0) mmol/L BUN 19 H (7-18) mg/dL Creatinine 1.16 (0.51-1.17) mg/dL Est Cr Clr Drug Dosing 36.97 mL/min Estimated GFR (MDRD) 47 mL/min Glucose 110 H (70-99) mg/dL Calcium 9.1 (8.5-10.1) mg/dL Magnesium 2.2 (1.8-2.4) mg/dL Troponin I 0.000 (0.000-0.056) ng/mL NT-Pro-B Natriuret Pep 729 H (0-125) pg/mL Srinath Results Last 24 Hours: Microbiology 12/23/20 08:00 Stool Occult Blood (SRINATH) - Final Stool / Feces NEGATIVE OCCULT BLOOD REFERENCE RANGE: NEGATIVE Med Orders - Current: Current Medications Acetaminophen (Acetaminophen 325 Mg Tab) 650 mg PO Q4H PRN PRN Reason: Pain Amiodarone HCl (Amiodarone 200 Mg Tab) 200 mg PO DAILY [facility] Last Admin: 12/25/20 07:42 Dose: 200 mg Documented by: Apixaban (Apixaban 5 Mg Tab) 5 mg PO BID [facility] Last Admin: 12/25/20 07:41 Dose: 5 mg Documented by: Aspirin (Aspirin 81 Mg Tab.Chew) 81 mg PO DAILY [facility] Last Admin: 12/25/20 07:40 Dose: 81 mg Documented by: Atorvastatin Calcium (Atorvastatin 40 Mg Tab) 80 mg PO BEDTIME [facility] Last Admin: 12/24/20 21:22 Dose: 80 mg Documented by: Furosemide (Furosemide 40 Mg/4 Ml Vial) 40 mg IVPUSH Q8H [facility] Last Admin: 12/25/20 06:11 Dose: 40 mg Documented by: Levothyroxine Sodium (Levothyroxine 150 Mcg Tab) 150 mcg PO ACBREAKFAST [facility] Last Admin: 12/25/20 07:41 Dose: 150 mcg Documented by: Magnesium Oxide (Magnesium Oxide 400 Mg Tab) 400 mg PO QPM [facility] Last Admin: 12/24/20 17:17 Dose: 400 mg Documented by: Metoprolol Tartrate (Metoprolol Tartrate 25 Mg Tab) 25 mg PO Q12HR [facility] Last Admin: 12/25/20 07:41 Dose: 25 mg Documented by: Potassium Chloride (Potassium Chloride 20 Meq Tab.Er) 20 meq PO TID [facility] Last Admin: 12/25/20 07:40 Dose: 20 meq Documented by: Senna/Docusate Sodium (Docusate Sodium/Sennosides 50-8.6 Mg Tab) 1 tab PO DAILY [facility] Last Admin: 12/25/20 07:40 Dose: 1 tab Documented by: Sodium Chloride (Sodium Chloride 0.9% 10 Ml Syringe) 10 ml FLUSH ASDIRECTED PRN PRN Reason: Keep Vein Open Last Admin: 12/25/20 06:11 Dose: 10 ml Documented by: Sodium Chloride (Sodium Chloride 0.9% 10 Ml Syringe) 10 ml FLUSH Q12HR PRN PRN Reason: Keep Vein Open Temazepam (Temazepam 15 Mg Cap) 15 mg PO BEDTIME PRN PRN Reason: Insomnia Discontinued Medications Famotidine (Famotidine 20 Mg/2 Ml Sdv) 40 mg IVPUSH ONETIME ONE Stop: 12/23/20 13:29 Last Admin: 12/23/20 14:14 Dose: 40 mg Documented by: Furosemide (Furosemide 40 Mg/4 Ml Vial) 60 mg IVPUSH NOW ONE Stop: 12/23/20 14:31 Last Admin: 12/23/20 15:35 Dose: 60 mg Documented by: Iopamidol (Iopamidol 755 Mg/Ml 100 Ml Bottle) 100 ml IVPUSH ONETIME STA Stop: 12/23/20 14:32 Last Admin: 12/23/20 15:17 Dose: 100 ml Documented by: - Exam General: Alert, Oriented Lungs: Clear to Auscultation, Normal Respiratory Effort Cardiovascular: Regular Rate, Regular Rhythm GI/Abdominal Exam: Soft, Non-Tender, No Mass (Female) Exam: Deferred Extremities: Normal Inspection, Normal Range of Motion, Non-Tender, No Pedal Edema Peripheral Pulses: 4+: Radial (L) Skin: Warm, Dry, Intact Neurological: No New Focal Deficit Psy/Mental Status: Alert, Normal Affect, Normal Mood - Patient Data Lab Results Last 24 hrs: Laboratory Results - last 24 hr 12/25/20 12/25/20 Range/Units 07:21 07:21 WBC 5.3 (4.0-10.2) K/uL RBC 4.18 (3.77-5.09) M/uL Hgb 12.7 (11.7-15.5) g/dL Hct 39.6 (34.0-46.0) % MCV 94.7 (84.0-98.0) fL MCH 30.4 (28.2-33.3) pg MCHC 32.1 (31.7-36.0) g/dL RDW 15.3 H (11.2-14.1) % Plt Count 265 (150-350) K/uL Neut % (Auto) 61.5 (45.0-80.0) % Lymph % (Auto) 22.3 (10.0-50.0) % [place] % (Auto) 10.5 (2.0-14.0) % Eos % (Auto) 5.1 H (0.0-5.0) % Baso % (Auto) 0.6 (0.0-2.0) % Neut # (Auto) 3.28 (1.40-7.00) K/uL Lymph # (Auto) 1.19 (0.50-3.50) K/uL [place] # (Auto) 0.56 (0.00-1.00) K/uL Eos # (Auto) 0.27 (0.00-0.50) K/uL Baso # (Auto) 0.03 (0.00-0.20) K/uL Sodium 144 (136-145) mmol/L Potassium 4.3 (3.5-5.1) mmol/L Chloride 104 (98-107) mmol/L Carbon Dioxide 27.3 (21.0-32.0) mmol/L BUN 19 H (7-18) mg/dL Creatinine 1.16 (0.51-1.17) mg/dL Est Cr Clr Drug Dosing 36.97 mL/min Estimated GFR (MDRD) 47 mL/min Glucose 110 H (70-99) mg/dL Calcium 9.1 (8.5-10.1) mg/dL Magnesium 2.2 (1.8-2.4) mg/dL Troponin I 0.000 (0.000-0.056) ng/mL NT-Pro-B Natriuret Pep 729 H (0-125) pg/mL Result Diagrams: 12/25/20 07:21 12/25/20 07:21 Srinath Results Last 24 hrs: Microbiology 12/23/20 08:00 Stool Occult Blood (SRINATH) - Final Stool / Feces NEGATIVE OCCULT BLOOD REFERENCE RANGE: NEGATIVE Sepsis Event Note - Evaluation Sepsis Screening Result: No Definite Risk - Focused Exam Vital Signs: Vital Signs Temp Pulse Pulse Resp BP BP Pulse Ox 12/25/20 08:00 36.6 C 66 16 123/79 97 12/25/20 07:47 36.6 C 65 16 123/79 97 12/25/20 07:41 65 123/79 12/25/20 06:00 36.2 C 63 14 103/70 100 12/25/20 00:00 36.3 C 63 16 102/64 100 - Problem List Review Problem List Initiated/Reviewed/Updated: Yes - Assessment Assessment:: As above - Plan Plan:: As above. Extensive precautions were given to the patient, who is in agreement with the treatment plan. The patient will require about 2-3 days of inpatient/acute care secondary to multiple health problems as above. Melvi lange provider assumes care in the a.m. Continue admission. Anticipate discharge tomorrow. Decrease IV lasix to 40mg daily. Encouraged the patient to ambulate to improve exercise tolerance.
[2020-12-25] MEDS: Magnesium Oxide 400 MG Tab PO SCH (17:10)
[2020-12-25] MEDS: atorvaSTATin 40 MG Tab PO SCH (20:02)
[2020-12-26] MEDS ORDERED: Furosemide 40 MG/4 ML VIAL IVPUSH SCH (08:00)
[2020-12-26] MEDS ORDERED: Potassium Chloride 20 MEQ Tab.ER PO SCH (08:00)
[2020-12-26] MEDS: Amiodarone 200 MG Tab PO SCH (08:08)
[2020-12-26] MEDS: Sodium Chloride 0.9% 10 ML Syringe FLUSH PRN (08:09)
[2020-12-26] MEDS: Apixaban 5 MG Tab PO SCH (08:09)
[2020-12-26] MEDS: Levothyroxine 150 MCG Tab PO SCH (08:09)
[2020-12-26] MEDS: Aspirin 81 MG Tab.Chew PO SCH (08:09)
[2020-12-26] MEDS: Metoprolol Tartrate 25 MG Tab PO SCH (08:12)
--- NOTE | 2020-12-26 08:36 | PCM.DCSUM1 ---
Discharge Summary - Hospital Course Free Text/Narrative:: Pt. states that she is feeling much better. She has been up walking around the floor frequently since she was seen on rounds yesterday. She denies any shortness of breath, even with ambulation. She denies any chest pain. No palpitations or lightheadedness. No nausea, vomiting, or diarrhea. She has over a liter of fluid deficit over the past 24 hours. She reports that her "shoes fit better than they have in months". Pt. has follow-up scheduled with CV surgery on 01/04. Diagnosis: Stroke: No Modified Lauren Scale: No Symptoms at All Modified Lauren Scale Score: 0 - Discharge Data Discharge Date: 12/26/20 Discharge Disposition: Home, Self-Care 01 Condition: Good - Referral to Home Health Primary Care Physician: HERMILA Shin - Discharge Diagnosis/Problem(s) (1) CHF (congestive heart failure) SNOMED Code(s): 77260346 ICD Code: I50.9 - HEART FAILURE, UNSPECIFIED Status: Acute Priority: High Current Visit: Yes Problem Details: Various therapeutic options were discussed with the patient and her sister with the patient preferring to stay in this facility. High-dose IV Lasix initiated in the emergency room. Note recent echocardiogram as per emergency room note. Further medication adjustment during this hospitalization depending on her clinical course. Continue rule out of acute HI, which is negative to this point, with overall stable diffuse ischemic changes by EKG with no chest pain or anginal type symptoms. Qualifiers: Heart failure type: systolic Heart failure chronicity: acute on chronic Qualified Code(s): I50.23 - Acute on chronic systolic (congestive) heart failure - Patient Summary/Data Consults: Consultations 12/24/20 12:19 PT Evaluation and Treatment [CONS] Routine 12/24/20 12:20 OT Evaluation and Treatment [CONS] Routine - Patient Instructions Diet: Heart Healthy Diet Fluid Restriction: 1500 mL Activity: As Tolerated Driving: Do Not Drive - Discharge Plan *PRESCRIPTION DRUG MONITORING PROGRAM REVIEWED*: No *COPY OF PRESCRIPTION DRUG MONITORING REPORT IN PATIENT AYAZ: No Home Medications: Home Meds Metoprolol Tartrate 25 mg PO Q12HR 09/14/20 [History] Amiodarone [Cordarone] 200 mg PO DAILY 12/23/20 [History] Apixaban [Eliquis] 5 mg PO BID 12/23/20 [History] Ascorbate Calcium [Vitamin C] 500 mg PO DAILY 12/23/20 [History] Aspirin 81 mg PO DAILY 12/23/20 [History] B12/Levomefolate Calcium/B-6 [Foltx Tablet] 1 each PO DAILY 12/23/20 [History] Calcium Citrate/Vitamin D3 [Calcium Cit-Vit D 250-200] 2 each PO DAILY 12/23/20 [History] Levothyroxine 150 mcg PO ACBREAKFAST 12/23/20 [History] Magnesium Chloride [Mag Delay] 64 mg PO DAILY 12/23/20 [History] Pantoprazole Sodium [Protonix] 40 mg PO BEDTIME 12/23/20 [History] Potassium Chloride [Klor-Con M20] 20 meq PO DAILY 12/23/20 [History] Sennosides/Docusate Sodium [Senna-S] 1 each PO DAILY 12/23/20 [History] atorvaSTATin [Lipitor] 80 mg PO BEDTIME 12/23/20 [History] oxyCODONE 5 mg PO Q4H PRN 12/23/20 [History] Acetaminophen [Tylenol] 650 mg PO Q4H PRN tablet 12/26/20 [Rx] Furosemide [Lasix] 40 mg PO DAILY #0 12/26/20 [Rx] Magnesium Oxide 400 mg PO QPM tablet 12/26/20 [Rx] Potassium Chloride [Klor-Con M20] 20 meq PO DAILY tab.er 12/26/20 [Rx] Oxygen Therapy Mode: Room Air Patient Handouts: Heart Failure, Self Care, Heart Failure, Diagnosis, Living With Heart Failure Forms: ED Department Discharge Referrals: Lolly Ruiz PA [Primary Care Provider] - - Discharge Summary/Plan Comment DC Time >30 min.: Yes Discharge Summary/Plan Comment: Recheck in clinic as planned. Daily weights. Contact butcherette/hospital if she gains 2-3 pounds in a 1-2 day period or 5 pounds in a week. Minimize your consumption of sodium. Lasix increased to 40mg daily She is cleared to participate in cardiac rehab. She will return to ER if she begins have chest pain, shortness of breath, palpitations, or lightheadedness. Follow-Ups: PCP in 7-10 days CV surgery on 01/04 - General Info Functional Status: Reports: Pain Controlled - Review of Systems General: Reports: No Symptoms HEENT: Reports: No Symptoms Pulmonary: Reports: No Symptoms Cardiovascular: Reports: No Symptoms Gastrointestinal: Reports: No Symptoms Genitourinary: Reports: No Symptoms Musculoskeletal: Reports: No Symptoms Skin: Reports: No Symptoms Neurological: Reports: No Symptoms Psychiatric: Reports: No Symptoms - Patient Data Vitals - Most Recent: Last Vital Signs Temp 36.8 C 12/26/20 08:11 Pulse 69 12/26/20 08:12 Resp 16 12/26/20 08:11 BP 121/69 12/26/20 08:12 Pulse Ox 98 12/26/20 08:11 Weight - Most Recent: 88.042 kg I&O - Last 24 hours: Intake & Output 12/25/20 12/26/20 12/26/20 22:59 06:59 14:59 Intake Total 200 Output Total 150 Balance 50 Lab Results - Last 24 hrs: Laboratory Results - last 24 hr 12/25/20 12/25/20 Range/Units 07:21 07:21 WBC 5.3 (4.0-10.2) K/uL RBC 4.18 (3.77-5.09) M/uL Hgb 12.7 (11.7-15.5) g/dL Hct 39.6 (34.0-46.0) % MCV 94.7 (84.0-98.0) fL MCH 30.4 (28.2-33.3) pg MCHC 32.1 (31.7-36.0) g/dL RDW 15.3 H (11.2-14.1) % Plt Count 265 (150-350) K/uL Neut % (Auto) 61.5 (45.0-80.0) % Lymph % (Auto) 22.3 (10.0-50.0) % [place] % (Auto) 10.5 (2.0-14.0) % Eos % (Auto) 5.1 H (0.0-5.0) % Baso % (Auto) 0.6 (0.0-2.0) % Neut # (Auto) 3.28 (1.40-7.00) K/uL Lymph # (Auto) 1.19 (0.50-3.50) K/uL [place] # (Auto) 0.56 (0.00-1.00) K/uL Eos # (Auto) 0.27 (0.00-0.50) K/uL Baso # (Auto) 0.03 (0.00-0.20) K/uL Sodium 144 (136-145) mmol/L Potassium 4.3 (3.5-5.1) mmol/L Chloride 104 (98-107) mmol/L Carbon Dioxide 27.3 (21.0-32.0) mmol/L BUN 19 H (7-18) mg/dL Creatinine 1.16 (0.51-1.17) mg/dL Est Cr Clr Drug Dosing 36.97 mL/min Estimated GFR (MDRD) 47 mL/min Glucose 110 H (70-99) mg/dL Calcium 9.1 (8.5-10.1) mg/dL Magnesium 2.2 (1.8-2.4) mg/dL Troponin I 0.000 (0.000-0.056) ng/mL NT-Pro-B Natriuret Pep 729 H (0-125) pg/mL NALDO Results - Last 24 hrs: Microbiology 12/23/20 08:00 Stool Occult Blood (NALDO) - Final Stool / Feces NEGATIVE OCCULT BLOOD REFERENCE RANGE: NEGATIVE Med Orders - Current: Current Medications Acetaminophen (Acetaminophen 325 Mg Tab) 650 mg PO Q4H PRN PRN Reason: Pain Amiodarone HCl (Amiodarone 200 Mg Tab) 200 mg PO DAILY [facility] Last Admin: 12/26/20 08:08 Dose: 200 mg Documented by: Apixaban (Apixaban 5 Mg Tab) 5 mg PO BID [facility] Last Admin: 12/26/20 08:09 Dose: 5 mg Documented by: Aspirin (Aspirin 81 Mg Tab.Chew) 81 mg PO DAILY [facility] Last Admin: 12/26/20 08:09 Dose: 81 mg Documented by: Atorvastatin Calcium (Atorvastatin 40 Mg Tab) 80 mg PO BEDTIME [facility] Last Admin: 12/25/20 20:02 Dose: 80 mg Documented by: Furosemide (Furosemide 40 Mg/4 Ml Vial) 40 mg IVPUSH DAILY [facility] Last Admin: 12/26/20 08:08 Dose: 40 mg Documented by: Levothyroxine Sodium (Levothyroxine 150 Mcg Tab) 150 mcg PO ACBREAKFAST [facility] Last Admin: 12/26/20 08:09 Dose: 150 mcg Documented by: Magnesium Oxide (Magnesium Oxide 400 Mg Tab) 400 mg PO QPM [facility] Last Admin: 12/25/20 17:10 Dose: 400 mg Documented by: Metoprolol Tartrate (Metoprolol Tartrate 25 Mg Tab) 25 mg PO Q12HR [facility] Last Admin: 12/26/20 08:12 Dose: 25 mg Documented by: Potassium Chloride (Potassium Chloride 20 Meq Tab.Er) 20 meq PO DAILY [facility] Last Admin: 12/26/20 08:08 Dose: 20 meq Documented by: Senna/Docusate Sodium (Docusate Sodium/Sennosides 50-8.6 Mg Tab) 1 tab PO DAILY [facility] Last Admin: 12/26/20 08:08 Dose: 1 tab Documented by: Sodium Chloride (Sodium Chloride 0.9% 10 Ml Syringe) 10 ml FLUSH ASDIRECTED PRN PRN Reason: Keep Vein Open Last Admin: 12/26/20 08:09 Dose: 10 ml Documented by: Sodium Chloride (Sodium Chloride 0.9% 10 Ml Syringe) 10 ml FLUSH Q12HR PRN PRN Reason: Keep Vein Open Temazepam (Temazepam 15 Mg Cap) 15 mg PO BEDTIME PRN PRN Reason: Insomnia Discontinued Medications Famotidine (Famotidine 20 Mg/2 Ml Sdv) 40 mg IVPUSH ONETIME ONE Stop: 12/23/20 13:29 Last Admin: 12/23/20 14:14 Dose: 40 mg Documented by: Furosemide (Furosemide 40 Mg/4 Ml Vial) 60 mg IVPUSH NOW ONE Stop: 12/23/20 14:31 Last Admin: 12/23/20 15:35 Dose: 60 mg Documented by: Furosemide (Furosemide 40 Mg/4 Ml Vial) 40 mg IVPUSH Q8H [facility] Last Admin: 12/25/20 06:11 Dose: 40 mg Documented by: Iopamidol (Iopamidol 755 Mg/Ml 100 Ml Bottle) 100 ml IVPUSH ONETIME STA Stop: 12/23/20 14:32 Last Admin: 12/23/20 15:17 Dose: 100 ml Documented by: Potassium Chloride (Potassium Chloride 20 Meq Tab.Er) 20 meq PO TID [facility] Last Admin: 12/25/20 12:29 Dose: 20 meq Documented by: - Exam General: Reports: Alert, Oriented Lungs: Reports: Clear to Auscultation, Normal Respiratory Effort Cardiovascular: Reports: Regular Rate, Regular Rhythm GI/Abdominal Exam: Normal Bowel Sounds, Soft, Non-Tender, No Organomegaly, No Distention (Female) Exam: Deferred Rectal (Female) Exam: Deferred Extremities: Normal Inspection, Normal Range of Motion, Non-Tender, No Pedal Edema, Normal Capillary Refill Skin: Reports: Warm, Dry, Intact Neurological: Reports: No New Focal Deficit Psy/Mental Status: Reports: Alert, Normal Affect, Normal Mood
== END 2020-12-26 10:15 | disposition home or self-care (01) | DRG 194 ==
LOC: LL.ED 13:20 → LL.MS 15:08
PROVIDERS: ADMIT Family Medicine; ATTEND Family Medicine
DX: I11.0 Hypertensive heart disease with heart failure (principal); I50.23 Acute on chronic systolic (congestive) heart failure; H54.7 Unspecified visual loss; I48.91 Unspecified atrial fibrillation; I42.9 Cardiomyopathy, unspecified; E78.00 Pure hypercholesterolemia, unspecified; J84.10 Pulmonary fibrosis, unspecified; R91.8 Other nonspecific abnormal finding of lung field; K21.9 Gastro-esophageal reflux disease without esophagitis; K57.90 Diverticulosis of intestine, part unspecified, without perforation or abscess without bleeding; M19.90 Unspecified osteoarthritis, unspecified site; G89.29 Other chronic pain; M54.9 Dorsalgia, unspecified; Z96.641 Presence of right artificial hip joint; M54.2 Cervicalgia; E66.9 Obesity, unspecified; I25.810 Atherosclerosis of coronary artery bypass graft(s) without angina pectoris; E89.0 Postprocedural hypothyroidism; E78.5 Hyperlipidemia, unspecified; J43.1 Panlobular emphysema; Z86.19 Personal history of other infectious and parasitic diseases; I25.2 Old myocardial infarction; Z98.890 Other specified postprocedural states; Z95.5 Presence of coronary angioplasty implant and graft; Z98.1 Arthrodesis status; Z95.1 Presence of aortocoronary bypass graft; Z86.010 Personal history of colon polyps; Z79.01 Long term (current) use of anticoagulants; Z79.890 Hormone replacement therapy; Z79.899 Other long term (current) drug therapy; Z79.82 Long term (current) use of aspirin; Z68.36 Body mass index [BMI] 36.0-36.9, adult
CPT/HCPCS: 36415; 71045; 71275; 80048; 80053; 82272; 83036; 83605; 83735; 83880; 84443; 84484; 84550; 85025; 85379; 85610; 87338; 93005; 93010; 93970; 97162-GP; 97530-GP; 99223; 99232; 99233; 99239; 99285-25; A9270-GY; J1940; J3490; Q9967

== ENCOUNTER 2023-05-17 07:52 | Day surgery (SDC) | payer BC, MEDICARE ==
[2023-05-17] MEDS ORDERED: Sodium Chloride 0.9% 10 ML Syringe FLUSH PRN (08:00)
[2023-05-17] MEDS ORDERED: Propofol 200 MG/20 ML SDV ONE (08:27)
[2023-05-17] MEDS ORDERED: Midazolam 1 MG/ML 2 ML SDV ONE (08:27)
[2023-05-17] MEDS: Lactated Ringers 1,000 ML IV SCH (08:31)
== END 2023-05-17 10:15 | disposition home or self-care (01) ==
LOC: LL.SDS 07:52
PROVIDERS: ATTEND Surgery
DX: Z12.11 Encounter for screening for malignant neoplasm of colon (principal); D12.0 Benign neoplasm of cecum; K57.30 Diverticulosis of large intestine without perforation or abscess without bleeding; I25.10 Atherosclerotic heart disease of native coronary artery without angina pectoris; J44.9 Chronic obstructive pulmonary disease, unspecified; I10 Essential (primary) hypertension; K21.9 Gastro-esophageal reflux disease without esophagitis; E78.5 Hyperlipidemia, unspecified; I25.2 Old myocardial infarction; I48.0 Paroxysmal atrial fibrillation; E03.9 Hypothyroidism, unspecified; Z95.1 Presence of aortocoronary bypass graft; Z79.890 Hormone replacement therapy; Z79.01 Long term (current) use of anticoagulants; Z79.82 Long term (current) use of aspirin; Z79.899 Other long term (current) drug therapy
CPT/HCPCS: J2250; J2704; J7120